=== PATIENT | male | born 1940 | race Caucasian/White ===

== ENCOUNTER 2016-07-28 16:20 | Observation (INO) | payer OTHER ==
[~2016-07-28] VITALS: Ht 172.7 cm; Wt 88.7 kg
[2016-07-28] VITALS (10 sets, daily range): BP systolic 143–200; BP diastolic 59–107; PULSE 74–91; RESP 16–20; TEMP 98.8–99.8; O2SAT 93–98
[~2016-07-28 16:20] MED LIST: AMLO5TAB22 PO; ATOR40TA PO; DONE5TAB14 PO; DUONI NEB; FURO20 PO; LANTUS2P SQ; LORA.5 PO; LOSA100T PO; NOVORP2 SQ; OMEP20TA PO; PENT400 PO; POTA-243 PO; QUET25 PO; ST J81CH PO; Z.0.OXYGENDME NC
[2016-07-28] MEDS ORDERED: SODIUM CHLOR 0.9% 1000 ML INJ 1,000 ML IV SCH (16:40)
--- NOTE | 2016-07-28 16:43 | PD ---
HPI Chief Complaint: Altered Mental Status Time Seen by Provider: 16:36 Travel History International Travel<30 days: No Contact w/Intl Traveler<30days: No Traveled to known affect area: No History of Present Illness HPI 76-year-old male with history of COPD, dementia, diabetes, brought in by his for evaluation of altered mental status. When asked why the patient is in the emergency department, he states he is not feeling well. He is denying chest pain or dyspnea. No abdominal pain. Apparently he vomited once earlier today. According to the , the patient has not been acting like himself. Symptoms seem to be worse after waking up from sleep. She tells me that yesterday he urinated off of her porch which is very unlike him. She has not noted any fevers, but tells me that he felt cold today. PFSH Past Medical History Asthma: Yes Blood Disorders: No Depression: Yes Cancer: No Cardiac Catheterization: Yes Cardiovascular Problems: Yes High Cholesterol: Yes Chest Pain: Yes COPD: Yes Cerebrovascular Accident: Yes Coronary Artery Disease: Yes Diabetes: Yes Diminished Hearing: No Gastrointestinal Disorders: Yes GERD: Yes Genitourinary: No Headaches: Yes (MIGRANES) Hypertension: Yes Immune Disorder: No Musculoskeletal: No Neurologic: No Psychiatric: No Reproductive: Yes Respiratory: Yes Migraines: Yes Myocardial Infarction: Yes Past Surgical History Abdominal Surgery: Yes (APPENDECTOMY) AICD: No Appendectomy: Yes Ear Surgery: Yes Joint Replacement: No Pacemaker: No Other Surgery: Yes Social History Alcohol Use: No Tobacco Use: Yes (1.5 PPD X 50 PLUS YRS/NOW 1PPD) Substance Use: No Allergies-Medications (Allergen,Severity, Reaction): Coded Allergies: No Known Allergies (Verified , 07/28/16) Reported Meds & Prescriptions Reported Meds & Active Scripts Active Reported Donepezil 10 Mg Tab 10 Mg PO DAILY Pentoxifylline CR (Pentoxifylline) 400 Mg Tab 400 Mg PO TID Memantine 10 Mg Tab 10 Mg PO BID Atorvastatin (Atorvastatin Calcium) 80 Mg Tab 80 Mg PO HS Metformin (Metformin HCl) 500 Mg Tab 500 Mg PO BIDPC With meals Lantus Inj (Insulin Glargine) 1,000 Unit/10 Ml Vial 30 Units SQ BID Losartan (Losartan Potassium) 100 Mg Tab 100 Mg PO DAILY Omeprazole 20 Mg Tab 20 Mg PO DAILY Potassium Chloride ER (Potassium Chloride) 10 Meq Tab 10 Meq PO DAILY Aspirin 81 Mg Tabdr 81 Mg PO DAILY Review of Systems Except as stated in HPI: all other systems reviewed are Neg Physical Exam Narrative GENERAL: Well-developed, well-nourished, no apparent distress. SKIN: Focused skin assessment warm/dry. No rash. HEAD: Atraumatic. Normocephalic. EYES: Pupils equal and round. No scleral icterus. No injection or drainage. ENT: Mucous membranes pink and moist. NECK: Trachea midline. No JVD. No nuchal rigidity CARDIOVASCULAR: Regular rate and rhythm. RESPIRATORY: No accessory muscle use. Clear to auscultation. Breath sounds equal bilaterally. GASTROINTESTINAL: Abdomen soft, non-tender, nondistended. MUSCULOSKELETAL: No obvious deformities. No clubbing. No cyanosis. No edema. NEUROLOGICAL: Awake and alert. No obvious cranial nerve deficits. Motor grossly within normal limits. Normal speech. Data Data Last Documented VS Vital Signs Date Time Temp Pulse Resp B/P Pulse Ox O2 Delivery O2 Flow Rate FiO2 07/28/16 18:06 76 20 178/81 96 Nasal Cannula 2 07/28/16 16:25 98.8 Orders Electrocardiogram (07/28/16 16:40) Complete Blood Count With Diff (07/28/16 16:40) Comprehensive Metabolic Panel (07/28/16 16:40) Prothrombin Time / Inr (Pt) (07/28/16 16:40) Act Partial Throm Time (Ptt) (07/28/16 16:40) Lactic Acid Sepsis Protocol (07/28/16 16:40) Urinalysis - C+S If Indicated (07/28/16 16:40) Influenzae A/B Antigen (07/28/16 16:40) Blood Culture (07/28/16 16:40) Chest, Single Ap (07/28/16 16:40) Arterial Blood Gas (Abg) (07/28/16 16:40) Blood Glucose (07/28/16 16:40) Ecg Monitoring (07/28/16 16:40) Iv Access Insert/Monitor (07/28/16 16:40) Oximetry (07/28/16 16:40) Oxygen Administration (07/28/16 16:40) Ammonia (07/28/16 16:40) Thyroid Stimulating Hormone (07/28/16 16:40) Sodium Chlor 0.9% 1000 Ml Inj (Ns 1000 M (07/28/16 16:40) Alcohol (Ethanol) (07/28/16 16:40) Ct Brain W/O Iv Contrast(Rout) (07/28/16 ) Cath For Specimen (07/28/16 17:19) Labs Laboratory Tests Test 07/28/16 07/28/16 07/28/16 16:40 16:45 18:00 White Blood Count 11.8 TH/MM3 Red Blood Count 5.50 MIL/MM3 Hemoglobin 15.9 GM/DL Hematocrit 48.7 % Mean Corpuscular Volume 88.5 FL Mean Corpuscular Hemoglobin 29.0 PG Mean Corpuscular Hemoglobin 32.8 % Concent Red Cell Distribution Width 13.4 % Platelet Count 177 TH/MM3 Mean Platelet Volume 9.9 FL Neutrophils (%) (Auto) 82.9 % Lymphocytes (%) (Auto) 10.5 % Monocytes (%) (Auto) 3.9 % Eosinophils (%) (Auto) 0.9 % Basophils (%) (Auto) 1.8 % Neutrophils # (Auto) 9.8 TH/MM3 Lymphocytes # (Auto) 1.2 TH/MM3 Monocytes # (Auto) 0.5 TH/MM3 Eosinophils # (Auto) 0.1 TH/MM3 Basophils # (Auto) 0.2 TH/MM3 CBC Comment DIFF FINAL Differential Comment Prothrombin Time 10.4 SEC Prothromb Time International 0.9 RATIO Ratio Activated Partial 26.1 SEC Thromboplast Time Sodium Level 141 MEQ/L Potassium Level 4.1 MEQ/L Chloride Level 102 MEQ/L Carbon Dioxide Level 30.6 MEQ/L Anion Gap 8 MEQ/L Blood Urea Nitrogen 18 MG/DL Creatinine 1.10 MG/DL Estimat Glomerular Filtration 65 ML/MIN Rate Random Glucose 87 MG/DL Lactic Acid Level 1.4 mmol/L Calcium Level 8.9 MG/DL Total Bilirubin 0.5 MG/DL Aspartate Amino Transf 20 U/L (AST/SGOT) Alanine Aminotransferase 22 U/L (ALT/SGPT) Alkaline Phosphatase 85 U/L Ammonia LESS THAN 10 MCMOL/L Total Protein 7.6 GM/DL Albumin 3.5 GM/DL Thyroid Stimulating Hormone 0.616 uIU/ML 3rd Gen Ethyl Alcohol Level LESS THAN 3 MG/DL Blood Gas Puncture Site RT BRACHIAL Blood Gas Patient Temperature 98.6 Blood Gas HCO3 25 mmol/L Blood Gas Base Excess 1.3 mmol/L Blood Gas Oxygen Saturation 94 % Arterial Blood pH 7.44 Arterial Blood Partial 38 mmHG Pressure CO2 Arterial Blood Partial 109 mmHG Pressure O2 Arterial Blood Oxygen Content 20.7 Vol % Arterial Blood 3.2 % Carboxyhemoglobin Arterial Blood Methemoglobin 1.5 % Blood Gas Hemoglobin 15.7 G/DL Oxygen Delivery Device NASAL CANNULA Blood Gas Liter Flow 2 L/M Blood Gas Inspired Oxygen 28 % Urine Color YELLOW Urine Turbidity CLEAR Urine pH 6.0 Urine Specific [place] 1.018 Urine Protein 100 mg/dL Urine Glucose (UA) NEG mg/dL Urine Ketones NEG mg/dL Urine Occult Blood TRACE Urine Nitrite NEG Urine Bilirubin NEG Urine Leukocyte Esterase NEG Urine RBC 0-3 /hpf Urine WBC 0-2 /hpf Microscopic Urinalysis Comment CATH-CULT NOT IND MDM Medical Decision Making Medical Screen Exam Complete: Yes Emergency Medical Condition: Yes Interpretation(s) EKG: Sinus, rate 78, leftward axis, RBBB with LAFB, unchanged from prior Differential Diagnosis Sepsis, pneumonia, UTI, intracranial abnormality, metabolic abnormality, progression of dementia, hypercarbia, hyperammonemia, meningitis/encephalitis unlikely Narrative Course Initial vital signs show heart rate 70, blood pressure 178/84, pulse ox 98% on room air, oral temp of 98.8F. CBC shows WBC 11.8, hemoglobin 15.9, hematocrit 40.7, platelets 177, neutrophils 82.9%. CMP is unremarkable. Lactic acid is 1.4. TSH is 0.616. Ammonia is less than 10. Alcohol level is negative. UA shows 100 protein, trace occult blood, otherwise unremarkable. ABG shows pH 7.44, PCO2 38 and a PO2 109 Chest x-ray: No acute disease. CT head: CONCLUSION: Stable brain. No acute findings. Patient and the patient's significant other were made aware of all findings. The patient became slightly agitated at one point while in the emergency department, but was able to be talked down. His symptoms could be secondary to worsening dementia. I certainly do not believe that he has meningitis or encephalitis. Patient lives at home with his , and the is concerned about being able to care for him in his current condition. I agree that the patient is not safe to be discharged home at this time and would like to admit him for overnight observation for altered mental status. Case discussed with hospitalist Dr. Pontey who will admit the patient to his service. The is amenable to this plan. Diagnosis Primary Impression: Altered mental status Qualified Code: R41.82 - Altered mental status, unspecified altered mental status type Admitting Information Admitting Physician Requests: Observation Naren Morelos MD July 28, 2016 16:43
[2016-07-28 16:54] LABS: BLOOD GAS BASE EXCESS 1.3 mmol/L (-2-2); BLOOD GAS CARBOXYHEMOGLOBIN 3.2 % (0-4); BLOOD GAS HCO3 25 mmol/L (22-26); BLOOD GAS METHEMOGLOBIN 1.5 % (0-2); BLOOD GAS O2 HGB SATURATION 94 % (90-100); BLOOD GAS OXYGEN CONTENT 20.7 Vol % (12.0-20.0); BLOOD GAS PCO2 38 mmHG (38-42); BLOOD GAS PO2 109 mmHG (61-120); BLOOD GAS TOTAL HGB 15.7 G/DL (12.0-16.0); CRITICAL VALUE NO; DRAW SITE RT BRACHIAL; FIO2 28 %; LITER FLOW 2 L/M; NUMBER OF ARTERIAL PUNCTURES 1; OXYGEN DEVICE NASAL CANNULA; STAT YES; TEMP CORR TO 98.6; ULNAR PULSE PRESENT
[2016-07-28] MEDS ORDERED: ATOR1TAB18 PO (16:59)
[2016-07-28] MEDS ORDERED: ASPI1TAB69 PO (16:59)
[2016-07-28] MEDS ORDERED: OMEP20TA PO (16:59)
[2016-07-28] MEDS ORDERED: PENT400T19 PO (16:59)
[2016-07-28] MEDS ORDERED: MEMA1TAB2 PO (16:59)
[2016-07-28] MEDS ORDERED: LANTUS2P SQ (16:59)
[2016-07-28] MEDS ORDERED: POTA10TA2 PO (16:59)
[2016-07-28] MEDS ORDERED: DONE10TA7 PO (16:59)
[2016-07-28] MEDS ORDERED: LOSA100T PO (16:59)
[2016-07-28] MEDS ORDERED: METF500T PO (16:59)
[2016-07-28 17:13] LABS: AUTOMATED NEUTROPHIL # 9.8 TH/MM3 (1.8-7.7); BASOPHIL # 0.2 TH/MM3 (0-0.2); BASOPHIL % 1.8 % (0.0-2.0); EOSINOPHIL # 0.1 TH/MM3 (0-0.4); EOSINOPHIL % 0.9 % (0.0-4.0); HEMATOCRIT 48.7 % (39.0-51.0); LYMPH % 10.5 % (9.0-44.0); LYMPHOCYTE # 1.2 TH/MM3 (1.0-4.8); MEAN CELL VOLUME 88.5 FL (80.0-100.0); MEAN CORPUSCULAR HGB CONC 32.8 % (32.0-36.0); MONO % 3.9 % (0.0-8.0); NEUT % 82.9 % (16.0-70.0); PLATELET COUNT 177 TH/MM3 (150-450); RED CELL DISTRIBUTION WIDTH 13.4 % (11.6-17.2); WHITE BLOOD COUNT 11.8 TH/MM3 (4.0-11.0)
[2016-07-28 17:14] LABS: HEMO FLAGS DIFF FINAL
--- NOTE | 2016-07-28 17:19 | RADHPO ---
EXAM DATE/TIME: 07/28/2016 17:07 [facility] COMPARISON: CT PULMONARY ANGIOGRAM, July 14, 2015, 7:23. CHEST SINGLE AP, July 12, 2015, 9:48. INDICATIONS : Chest pain. MEDICAL HISTORY : Hypertension. Chronic obstructive pulmonary disease. Cardiovascular disease. diabetes SURGICAL HISTORY : None. ENCOUNTER: Initial ACUITY: 4 - 6 days PAIN SCORE: 5/10 LOCATION: Bilateral chest FINDINGS: A single view of the chest demonstrates the lungs to be symmetrically aerated without evidence of mas s, infiltrate or effusion. The cardiomediastinal contours are unremarkable. Osseous structures are intact. CONCLUSION: No acute disease. Constantino Lomeli MD on July 28, 2016 at 17:16 Board Certified Radiologist. This report was verified electronically.
[2016-07-28 17:22] LABS: CHLORIDE 102 MEQ/L (98-107); POTASSIUM 4.1 MEQ/L (3.5-5.1); SODIUM (NA) 141 MEQ/L (136-145)
[2016-07-28 17:25] LABS: APTT (PATIENT) 26.1 SEC (24.3-30.1); INTERNATIONAL NORMALIZED RATIO 0.9 RATIO; PROTHROMBIN TIME - PATIENT 10.4 SEC (9.8-11.6)
[2016-07-28 17:26] LABS: ANION GAP 8 MEQ/L (5-15); BICARBONATE 30.6 MEQ/L (21.0-32.0); BLOOD UREA NITROGEN 18 MG/DL (7-18)
[2016-07-28 17:29] LABS: ALT (GPT) 22 U/L (12-78); AST (GOT) 20 U/L (15-37); GLOMERULAR FILTRATION RATE 65 ML/MIN (>89)
[2016-07-28 17:30] LABS: TOTAL BILIRUBIN ADULT 0.5 MG/DL (0.2-1.0)
[2016-07-28 17:31] LABS: ALKALINE PHOSPHATASE 85 U/L (45-117)
[2016-07-28 18:04] LABS: BLOOD, URINE TRACE (NEG); GLUCOSE,URINE NEG (NEG); KETONE, URINE NEG (NEG); NITRITE,URINE NEG (NEG)
[2016-07-28 18:09] LABS: COMMENT (UR) CATH-CULT NOT IND; CULTURE IF INDICATED CATH CULTURE NOT IND; RBC, URINE 0-3 /hpf (0-3); URINE COLOR YELLOW (YELLW/STRAW); WBC, URINE 0-2 /hpf (0-5)
--- NOTE | 2016-07-28 18:23 | RADHPO ---
EXAM DATE/TIME: 07/28/2016 17:40 [facility] COMPARISON: CT BRAIN W/O CONTRAST, July 12, 2015, 9:25. INDICATIONS : Increased confusion. RADIATION DOSE: 66.33 CTDIvol (mGy) MEDICAL HISTORY : Cerebrovascular disease. Cardiovascular disease Chronic obstructive pulmonary disease.Hypertension. Diabetes. SURGICAL HISTORY : Appendectomy. Retina surgery. Orthopedic surgery. ENCOUNTER: Initial ACUITY: 1 day PAIN SCALE: 0/10 LOCATION: cranial TECHNIQUE: Multiple contiguous axial images were obtained of the head. Using automated exposure control and adj ustment of the mA and/or kV according to patient size, radiation dose was kept as low as reasonably a chievable to obtain optimal diagnostic quality images. FINDINGS: There are stable small bilateral basal ganglia lacunar infarcts area patchy mild diminished attenuati on in periventricular white matter which also appears unchanged. There is no evidence of intracranial mass or hemorrhage. There is a suggest acute infarction. The extracranial structures are benign and intact. CONCLUSION: Stable brain. No acute findings. Constantino Lomeli MD on July 28, 2016 at 18:19 Board Certified Radiologist. This report was verified electronically.
--- NOTE | 2016-07-28 18:56 | HHI.HP ---
[facility] Service [facility] Primary Care Physician Chalo Baird MD Admission Diagnosis altered mental status Diagnoses: (1) Toxic metabolic encephalopathy (2) Dementia (3) DM (diabetes mellitus) (4) HTN (hypertension) (5) CAD (coronary artery disease) (6) HLD (hyperlipidemia) Chief Complaint: Alter mental status change Travel History International Travel<30 Days: No Contact w/Intl Traveler <30 Da: No Traveled to Known Affected Are: No History of Present Illness 76-year-old male with a past medical history of dementia, HTN, GERD, CAD, HLD, COPD, DM, CVA, PVD, depression was brought to the ED for evaluation of worsening altered mental status. Patient is essentially noncontributory historian. The history is obtained from patient's states, he has been acting strangely. Patient has been urinating on himself and has been wandering around.There has been no febrile episode or upper respiratory symptoms. Head CT in the ED was negative and all labs including CBC, BMP, ammonia level within normal limit. Review of Systems ROS Limitations: Altered Mental Status Other 12 systems reviewed and are negative except for the one mentioned in the history of present illness Past Family Social History Past Medical History Hypertension GERD Coronary artery disease Hyperlipidemia COPD Depression Diabetes mellitus History of CVA Peripheral vascular disease Past Surgical History Appendectomy Reported Medications Donepezil 10 Mg Tab 10 Mg PO DAILY Pentoxifylline CR (Pentoxifylline) 400 Mg Tab 400 Mg PO TID Memantine 10 Mg Tab 10 Mg PO BID Atorvastatin (Atorvastatin Calcium) 80 Mg Tab 80 Mg PO HS Metformin (Metformin HCl) 500 Mg Tab 500 Mg PO BIDPC With meals Lantus Inj (Insulin Glargine) 1,000 Unit/10 Ml Vial 30 Units SQ BID Losartan (Losartan Potassium) 100 Mg Tab 100 Mg PO DAILY Omeprazole 20 Mg Tab 20 Mg PO DAILY Potassium Chloride ER (Potassium Chloride) 10 Meq Tab 10 Meq PO DAILY Aspirin 81 Mg Tabdr 81 Mg PO DAILY Allergies: Coded Allergies: No Known Allergies (Verified , 07/28/16) Family History Family history of hypertension Social History Alcohol Use: No Tobacco Use: Yes (1.5 PPD X 50 PLUS YRS/NOW 1PPD) Substance Use: No Physical Exam Vital Signs Vital Signs Date Time Temp Pulse Resp B/P Pulse Ox O2 Delivery O2 Flow Rate FiO2 07/28/16 18:06 76 20 178/81 96 Nasal Cannula 2 07/28/16 17:05 94 Nasal Cannula 2 07/28/16 17:05 94 Nasal Cannula 2 07/28/16 16:46 77 18 188/86 96 Room Air 07/28/16 16:38 Room Air 07/28/16 16:25 98.8 78 16 178/84 98 Physical Exam GENERAL: NAD SKIN: No rashes, ecchymoses or lesions. Cool and dry. HEAD: Atraumatic. Normocephalic. No temporal or scalp tenderness. EYES: Pupils equal round and reactive. Extraocular motions intact. No scleral icterus. No injection or drainage. ENT: Nose without bleeding, purulent drainage or septal hematoma. Throat without erythema, tonsillar hypertrophy or exudate. Uvula midline. Airway patent. NECK: Trachea midline. No JVD or lymphadenopathy. Supple, nontender, no meningeal signs. CARDIOVASCULAR: Regular rate and rhythm without murmurs, gallops, or rubs. RESPIRATORY: Clear to auscultation. Breath sounds equal bilaterally. No wheezes , rales, or rhonchi. GASTROINTESTINAL: Abdomen soft, non-tender, nondistended. No hepato-splenomegaly , or palpable masses. No guarding. MUSCULOSKELETAL: Extremities without clubbing, cyanosis, or edema. No joint tenderness, effusion, or edema noted. No calf tenderness. Negative Homans sign bilaterally. NEUROLOGICAL: Awake and alert. Cranial nerves II through XII intact. Motor and sensory grossly within normal limits. Five out of 5 muscle strength in all muscle groups. Normal speech. Laboratory Laboratory Tests Test 07/28/16 07/28/16 07/28/16 16:40 16:45 18:00 White Blood Count 11.8 Red Blood Count 5.50 Hemoglobin 15.9 Hematocrit 48.7 Mean Corpuscular Volume 88.5 Mean Corpuscular Hemoglobin 29.0 Mean Corpuscular Hemoglobin 32.8 Concent Red Cell Distribution Width 13.4 Platelet Count 177 Mean Platelet Volume 9.9 Neutrophils (%) (Auto) 82.9 Lymphocytes (%) (Auto) 10.5 Monocytes (%) (Auto) 3.9 Eosinophils (%) (Auto) 0.9 Basophils (%) (Auto) 1.8 Neutrophils # (Auto) 9.8 Lymphocytes # (Auto) 1.2 Monocytes # (Auto) 0.5 Eosinophils # (Auto) 0.1 Basophils # (Auto) 0.2 CBC Comment DIFF FINAL Differential Comment Prothrombin Time 10.4 Prothromb Time International 0.9 Ratio Activated Partial 26.1 Thromboplast Time Sodium Level 141 Potassium Level 4.1 Chloride Level 102 Carbon Dioxide Level 30.6 Anion Gap 8 Blood Urea Nitrogen 18 Creatinine 1.10 Estimat Glomerular Filtration 65 Rate Random Glucose 87 Lactic Acid Level 1.4 Calcium Level 8.9 Total Bilirubin 0.5 Aspartate Amino Transf 20 (AST/SGOT) Alanine Aminotransferase 22 (ALT/SGPT) Alkaline Phosphatase 85 Ammonia LESS THAN 10 Total Protein 7.6 Albumin 3.5 Thyroid Stimulating Hormone 0.616 3rd Gen Ethyl Alcohol Level LESS THAN 3 Blood Gas Puncture Site RT BRACHIAL Blood Gas Patient Temperature 98.6 Blood Gas HCO3 25 Blood Gas Base Excess 1.3 Blood Gas Oxygen Saturation 94 Arterial Blood pH 7.44 Arterial Blood Partial 38 Pressure CO2 Arterial Blood Partial 109 Pressure O2 Arterial Blood Oxygen Content 20.7 Arterial Blood 3.2 Carboxyhemoglobin Arterial Blood Methemoglobin 1.5 Blood Gas Hemoglobin 15.7 Oxygen Delivery Device NASAL CANNULA Blood Gas Liter Flow 2 Blood Gas Inspired Oxygen 28 Urine Color YELLOW Urine Turbidity CLEAR Urine pH 6.0 Urine Specific [place] 1.018 Urine Protein 100 Urine Glucose (UA) NEG Urine Ketones NEG Urine Occult Blood TRACE Urine Nitrite NEG Urine Bilirubin NEG Urine Leukocyte Esterase NEG Urine RBC 0-3 Urine WBC 0-2 Microscopic Urinalysis Comment CATH-CULT NOT IND Date/Time Procedure Status Source Growth 07/28/16 16:50 Aerobic Blood Culture Received Blood Peripheral Pending 07/28/16 16:50 Anaerobic Blood Culture Received Blood Peripheral Pending 07/28/16 16:40 Influenza Types A,B Antigen ([facility]) - Final Complete Nasal Washing NEGATIVE FOR FLU A AND B ANTIGEN.... Result Diagram: 07/28/16 1640 07/28/16 1640 Imaging Last Impressions Chest X-Ray 07/28/16 1640 Signed Impressions: Service Date/Time: Thursday, July 28, 2016 17:07 - CONCLUSION: No acute disease. Constantino Lomeli MD Head CT 07/28/16 0000 Signed Impressions: Service Date/Time: Thursday, July 28, 2016 17:40 - CONCLUSION: Stable brain. No acute findings. Constantino Lomeli MD Assessment and Plan Problem List: (1) Toxic metabolic encephalopathy ICD Code: G92 Status: Resolved (2) Dementia ICD Code: F03.90 Status: Chronic (3) DM (diabetes mellitus) ICD Code: E11.9 Status: Chronic (4) HTN (hypertension) ICD Code: I10 Status: Chronic (5) CAD (coronary artery disease) ICD Code: I25.10 Status: Chronic (6) HLD (hyperlipidemia) ICD Code: E78.5 Status: Chronic (7) PVD (peripheral vascular disease) ICD Code: I73.9 Status: Chronic (8) GERD (gastroesophageal reflux disease) ICD Code: K21.9 Status: Chronic (9) COPD (chronic obstructive pulmonary disease) ICD Code: J44.9 Status: Chronic Assessment and Plan 76 year-old man with Toxic metabolic encephalopathy Head CT noted and review by me without any acute finding Chest x-ray noted and review by me without any cardio pulmonary disease Morning, CBC except elevated WBC, BMP unremarkable This maybe secondary to worsening dementia however will check brain MRI to rule out any ischemic event Leukocytosis 2/2 Stress reactive UA negative chest x-ray unremarkable Dementia Resume outpatient medications Consider psychiatry consultation Place sitter in the room Hypertension Labile BP, resume outpatient medication and Vasotec when necessary Diabetes type 2 Hold Lantus for tonight, start insulin sliding scale Other chronic medical conditions Resume outpatient medications DVT prophylaxis: Bilateral SCDs Code Status Full code Discussed Condition With , , ED physician Grover Livingston MD July 28, 2016 18:56
[2016-07-28] MEDS ORDERED: ALPRAZolam 0.5 MG TAB PO PRN ×2 (19:00→19:30)
[2016-07-28] MEDS ORDERED: ENALAPRILAT 1.25 MG/ML VIAL IV PUSH PRN (19:00)
[2016-07-28] MEDS ORDERED: GLUCAGON 1 MG/ML VIAL OTHER PRN (19:00)
[2016-07-28] MEDS ORDERED: RESP: ALBUTEROL 2.5 MG/IPRATROPIUM 0.5 MG NEB (PRN) NEB (19:00)
[2016-07-28] MEDS ORDERED: ONDANSETRON HCL 4 MG/2 ML VIAL IVP PRN (19:00)
[2016-07-28] MEDS ORDERED: LORazepam 2 MG/ML VIAL IV PUSH ONE (19:00)
[2016-07-28] MEDS ORDERED: ACETAMINOPHEN 325 MG TAB PO PRN ×2 (19:00)
[2016-07-28] MEDS ORDERED: NALOXONE HCL 0.4 MG/ML AMP IV PRN (19:00)
[2016-07-28] MEDS ORDERED: SODIUM CHLORIDE 0.9% FLUSH 10 ML FLUSH IV FLUSH PRN (19:00)
[2016-07-28] MEDS ORDERED: DEXTROSE 50% IN WATER 50 ML VIAL(D50) IV PUSH PRN (19:00)
[2016-07-28] MEDS: INSULIN ASPART SUPPLEMENTAL SCALE SQ SCH (20:49)
[2016-07-28] MEDS: MEMANTINE HCL 10 MG TAB PO SCH (20:52)
[2016-07-28] MEDS: SODIUM CHLORIDE 0.9% FLUSH 10 ML FLUSH IV FLUSH SCH (21:00)
[2016-07-28] MEDS ORDERED: ATORVASTATIN 40 MG TAB PO SCH (21:00)
[2016-07-28] MEDS ORDERED: INSULIN GLARGINE 1,000 UNITS/10 ML VIAL SQ SCH (21:00)
[2016-07-28] MEDS ORDERED: hydrALAZINE HCL 20 MG/ML VIAL IV PUSH PRN (21:30)
--- NOTE | 2016-07-28 22:38 | EKG ---
Date Performed: 07/28/2016 Time Performed: 17:07:44 PTAGE: 76 years EKG: Sinus rhythm with PAC(s) Left axis deviation RBBB with left anterior fascicular block Possible extensive infarct - age undetermined Abnormal ECG PREVIOUS TRACING : 07/12/2015 08.58 Compared to previous tracing, PACs are now present. DOCTOR: Serg Payne Interpretating Date/Time 07/28/2016 22:37:07
[2016-07-29] VITALS (8 sets, daily range): BP systolic 120–161; BP diastolic 53–81; PULSE 60–66; RESP 18–20; TEMP 98.3–99.6; O2SAT 95–97
[2016-07-29 05:30] LABS: AUTOMATED NEUTROPHIL # 6.9 TH/MM3 (1.8-7.7); BASOPHIL # 0.1 TH/MM3 (0-0.2); EOSINOPHIL # 0.3 TH/MM3 (0-0.4); EOSINOPHIL % 2.8 % (0.0-4.0); HEMATOCRIT 44.8 % (39.0-51.0); LYMPH % 27.5 % (9.0-44.0); LYMPHOCYTE # 3.1 TH/MM3 (1.0-4.8); MEAN CORPUSCULAR HEMOGLOBIN 29.4 PG (27.0-34.0); MEAN CORPUSCULAR HGB CONC 32.7 % (32.0-36.0); MONO % 8.3 % (0.0-8.0); NEUT % 60.4 % (16.0-70.0); PLATELET COUNT 160 TH/MM3 (150-450); RED BLOOD COUNT 4.98 MIL/MM3 (4.50-5.90); RED CELL DISTRIBUTION WIDTH 13.5 % (11.6-17.2); WHITE BLOOD COUNT 11.3 TH/MM3 (4.0-11.0)
[2016-07-29 05:32] LABS: CHLORIDE 102 MEQ/L (98-107); POTASSIUM 3.5 MEQ/L (3.5-5.1); SODIUM (NA) 141 MEQ/L (136-145)
[2016-07-29 05:37] LABS: ANION GAP 8 MEQ/L (5-15); BICARBONATE 31.3 MEQ/L (21.0-32.0); BLOOD UREA NITROGEN 14 MG/DL (7-18)
[2016-07-29 05:40] LABS: ALT (GPT) 19 U/L (12-78); AST (GOT) 16 U/L (15-37); GLOMERULAR FILTRATION RATE 74 ML/MIN (>89)
[2016-07-29 05:42] LABS: TOTAL BILIRUBIN ADULT 0.8 MG/DL (0.2-1.0)
[2016-07-29 05:43] LABS: ALKALINE PHOSPHATASE 69 U/L (45-117)
[2016-07-29 05:56] LABS: HEMO FLAGS DIFF FINAL
[2016-07-29] MEDS: INSULIN ASPART SUPPLEMENTAL SCALE SQ SCH ×2 (05:57→11:00)
[2016-07-29] MEDS ORDERED: DONEPEZIL HCL 5 MG TAB PO SCH (09:00)
[2016-07-29] MEDS ORDERED: INSULIN DETEMIR 100 UNITS/ML VIAL SQ SCH (09:00)
[2016-07-29] MEDS ORDERED: LOSARTAN 50 MG TAB PO SCH (09:00)
[2016-07-29] MEDS ORDERED: ASPIRIN EC 81 MG TABEC PO SCH (09:00)
[2016-07-29] MEDS ORDERED: PANTOPRAZOLE SOD 20 MG DELAYED RELEASE TAB PO SCH (09:00)
[2016-07-29] MEDS: MEMANTINE HCL 10 MG TAB PO SCH (09:36)
[2016-07-29] MEDS: PENTOXIFYLLINE 400 MG CONTROLLED RELEASE TAB PO SCH ×2 (09:37→12:47)
[2016-07-29] MEDS: SODIUM CHLORIDE 0.9% FLUSH 10 ML FLUSH IV FLUSH SCH (09:37)
--- NOTE | 2016-07-29 11:47 | HHI.PR ---
Subjective Remarks Follow-up toxic metabolic encephalopathy/dementia 07/29/16-patient seen and examined, appears calm and stable. Alert and oriented 2. by the bedside and would like the patient to be discharged home with home health care Objective Vitals Vital Signs Date Time Temp Pulse Resp B/P Pulse Ox O2 Delivery O2 Flow Rate FiO2 07/29/16 10:05 96 Nasal Cannula 2.00 07/29/16 08:00 98.5 60 18 161/75 97 07/29/16 03:54 96 Nasal Cannula 2.00 07/29/16 03:30 95 Nasal Cannula 2.00 07/29/16 03:30 98.3 64 20 120/53 95 07/29/16 03:21 67 20 137/81 98 07/29/16 02:30 99.0 66 20 135/65 97 Nasal Cannula 2 07/29/16 01:30 62 20 138/54 96 Nasal Cannula 2 07/29/16 00:30 99.6 63 20 137/65 96 07/28/16 23:12 76 20 143/59 95 07/28/16 22:46 87 20 144/78 94 Nasal Cannula 2 07/28/16 21:23 91 20 191/87 93 Nasal Cannula 2 07/28/16 21:23 87 20 98 07/28/16 21:17 99.8 87 20 194/98 98 Nasal Cannula 2 07/28/16 20:29 82 20 200/107 07/28/16 19:15 74 18 186/73 96 Nasal Cannula 2 07/28/16 18:06 76 20 178/81 96 Nasal Cannula 2 07/28/16 17:05 94 Nasal Cannula 2 07/28/16 17:05 94 Nasal Cannula 2 07/28/16 16:46 77 18 188/86 96 Room Air 07/28/16 16:38 Room Air 07/28/16 16:25 98.8 78 16 178/84 98 I/O 07/28/16 07/28/16 07/28/16 07/29/16 07/29/16 07/29/16 07:00 15:00 23:00 07:00 15:00 23:00 Intake Total 1000 ml Output Total 600 ml Balance -600 ml 1000 ml Intake IV Total 1000 ml Output Urine Total 600 ml # Voids 4 5 # Bowel Movements 1 Result Diagram: 07/29/16 0500 07/29/16 0500 Imaging Last Impressions Chest X-Ray 07/28/16 1640 Signed Impressions: Service Date/Time: Thursday, July 28, 2016 17:07 - CONCLUSION: No acute disease. Constantino Lomeli MD Head CT 07/28/16 0000 Signed Impressions: Service Date/Time: Thursday, July 28, 2016 17:40 - CONCLUSION: Stable brain. No acute findings. Constantino Lomeli MD Objective Remarks GENERAL: NAD SKIN: Warm and dry. HEAD: Normocephalic. EYES: No scleral icterus. No injection or drainage. NECK: Supple, trachea midline. No JVD or lymphadenopathy. CARDIOVASCULAR: Regular rate and rhythm without murmurs, gallops, or rubs. RESPIRATORY: Breath sounds equal bilaterally. No accessory muscle use. GASTROINTESTINAL: Abdomen soft, non-tender, nondistended. MUSCULOSKELETAL: No cyanosis, or edema. BACK: Nontender without obvious deformity. No CVA tenderness. A/P Problem List: (1) Toxic metabolic encephalopathy ICD Code: G92 Status: Resolved (2) Dementia ICD Code: F03.90 Status: Chronic (3) DM (diabetes mellitus) ICD Code: E11.9 Status: Chronic (4) HTN (hypertension) ICD Code: I10 Status: Chronic (5) CAD (coronary artery disease) ICD Code: I25.10 Status: Chronic Assessment and Plan 76 year-old man with Toxic metabolic encephalopathy-resolved Head CT without any acute finding Chest x-ray without any cardio pulmonary disease Will hold on brain MRI Explained to patient's that he would benefit from a short term rehabilitation facility however she wants her home with home health care. Leukocytosis 2/2 Stress reactive UA negative and chest x-ray unremarkable Dementia Continue outpatient medications, sitter Hypertension Continue outpatient medication and Vasotec when necessary Diabetes type 2 Hold Lantus for tonight, insulin sliding scale Other chronic medical conditions Continue outpatient medications DVT prophylaxis: Bilateral SCDs Discharge Planning Discharge patient to home Condition on discharge: Improved ADA Diet as tolerated Ad Nickie activity Rx written:none Follow-up with primary care physician in 1 week Grover Livingston MD July 29, 2016 11:47
--- NOTE | 2016-07-29 11:48 | HHI.FF ---
Face to Face Verification Diagnosis: (1) Toxic metabolic encephalopathy (2) DM (diabetes mellitus) (3) HTN (hypertension) (4) CAD (coronary artery disease) (5) Dementia Home Health Nursing Order: Medical education Signs/symptoms of disease process Medication education-adverse effect I have seen patient Tyler Gao on 07/29/16. My clinical findings support the need for the requested home health care services because: Med compliance is questionable Impaired cognition/judgement I certify that my clinical findings support that this patient is homebound because: Impaired cognitive ability/safety Poor cardiac reserve Grover Livingston MD July 29, 2016 11:48
== END 2016-07-29 13:00 | disposition home health service (06) ==
LOC: PHED 16:20 → PHEDA 18:36 → PH3B 07-29 03:20
PROVIDERS: ADMIT Hospitalist; ATTEND Hospitalist
DX: G92 Toxic encephalopathy (principal); F03.90 Unspecified dementia, unspecified severity, without behavioral disturbance, psychotic disturbance, mood disturbance, and anxiety; I10 Essential (primary) hypertension; E11.51 Type 2 diabetes mellitus with diabetic peripheral angiopathy without gangrene; E78.5 Hyperlipidemia, unspecified; D72.829 Elevated white blood cell count, unspecified; J44.9 Chronic obstructive pulmonary disease, unspecified; J45.909 Unspecified asthma, uncomplicated; I25.10 Atherosclerotic heart disease of native coronary artery without angina pectoris; I25.2 Old myocardial infarction; K21.9 Gastro-esophageal reflux disease without esophagitis; E78.00 Pure hypercholesterolemia, unspecified; Z72.0 Tobacco use; Z86.73 Personal history of transient ischemic attack (TIA), and cerebral infarction without residual deficits; R94.31 Abnormal electrocardiogram [ECG] [EKG]; Z79.4 Long term (current) use of insulin
CPT/HCPCS: 36600; 70450; 71010; 80053; 80307; 81001; 82140; 82805; 82948; 83605; 84443; 85025; 85610; 85730; 87040; 87804; 93005; 96360; 97162; 99285; G0378; G8987; G8988; J2060; J7030; P9612

== ENCOUNTER 2017-01-14 14:36 | Emergency (ER) | payer OTHER ==
[~2017-01-14] VITALS: Ht 172.7 cm; Wt 90.0 kg
[~2017-01-14 14:36] MED LIST changes: -AMLO5TAB22 PO; +ASPI1TAB69 PO; +ATOR1TAB18 PO; -ATOR40TA PO; +DONE10TA7 PO; -DONE5TAB14 PO; -DUONI NEB; -FURO20 PO; -LORA.5 PO; +MEMA1TAB2 PO; +METF500T PO; -NOVORP2 SQ; -PENT400 PO; +PENT400T19 PO; -POTA-243 PO; +POTA10TA2 PO; -QUET25 PO; -ST J81CH PO; -Z.0.OXYGENDME NC
[2017-01-14 14:37] VITALS: BP 144/67; PULSE 65; RESP 18; TEMP 98.4; O2SAT 94
--- NOTE | 2017-01-14 15:56 | RADRPT ---
EXAM DATE/TIME: 01/14/2017 15:33 [facility] COMPARISON: CT PULMONARY ANGIOGRAM, July 14, 2015, 7:23. CHEST PA & LAT, September 30, 2014, 21:15. INDICATIONS : Chest pain. MEDICAL HISTORY : None. SURGICAL HISTORY : None. ENCOUNTER: Initial ACUITY: 2 days PAIN SCORE: 7/10 LOCATION: Left chest FINDINGS: PA and lateral views of the chest show a nodular density within the lingula. Its measures less than 1 cm in size. Remaining lungs are clear. No effusions. Heart is normal in size. Bony structures are un remarkable. CONCLUSION: Nodular density within the lingula. Consider further characterization utilizing a CT of the thorax. O therwise, no acute abnormality. Klever Foreman Jr., MD on January 14, 2017 at 15:53 Board Certified Radiologist. This report was verified electronically.
[2017-01-14 16:45] LABS: BASOPHIL # 0.1 TH/MM3 (0-0.2); BASOPHIL % 0.8 % (0.0-2.0); EOSINOPHIL # 0.4 TH/MM3 (0-0.4); EOSINOPHIL % 3.7 % (0.0-4.0); HEMO FLAGS DIFF FINAL; LYMPH % 20.9 % (9.0-44.0); LYMPHOCYTE # 2.2 TH/MM3 (1.0-4.8); MEAN CELL VOLUME 90.9 FL (80.0-100.0); MEAN CORPUSCULAR HEMOGLOBIN 30.6 PG (27.0-34.0); MEAN CORPUSCULAR HGB CONC 33.7 % (32.0-36.0); MONO % 8.8 % (0.0-8.0); NEUT % 65.8 % (16.0-70.0); PLATELET COUNT 164 TH/MM3 (150-450); RED BLOOD COUNT 4.85 MIL/MM3 (4.50-5.90); RED CELL DISTRIBUTION WIDTH 14.5 % (11.6-17.2); WHITE BLOOD COUNT 10.6 TH/MM3 (4.0-11.0)
[2017-01-14] MEDS ORDERED: ASPIRIN 81 MG CHEW TAB PO ONE (16:45)
[2017-01-14] MEDS ORDERED: NITROGLYCERIN 0.4 MG SL 25 TABS/BTL SL SCH (16:45)
--- NOTE | 2017-01-14 16:54 | PD ---
HPI Chief Complaint: Chest Pain Time Seen by Provider: 16:20 Travel History International Travel<30 days: No Contact w/Intl Traveler<30days: No Traveled to known affect area: No History of Present Illness HPI Patient is a 76-year-old male with history of diabetes, hypertension, hyperlipidemia, COPD who presents to emergency room with complaints of left- sided chest pain. Patient reports that his chest began 2 days ago while lying in bed. Repots that chest pain is located to his left chest, he reports that pain feels like a "pressure" to his chest. Patient reports that he feels short of breath with this chest pain, denies any nausea or vomiting with it. Reports that he does have history of IA in the past - denies history of cardiac stents or bypass surgery. Reports that nothing makes pain better or worse. He does not follow up with a field engineer - he only follows with his pcp Dr Brie DELATORRE Past Medical History Asthma: Yes Blood Disorders: No Depression: Yes Cancer: No Cardiac Catheterization: Yes Cardiovascular Problems: Yes High Cholesterol: Yes Chest Pain: Yes COPD: Yes Cerebrovascular Accident: Yes Coronary Artery Disease: Yes Diabetes: Yes Patient Takes Glucophage: No Diminished Hearing: No Gastrointestinal Disorders: No GERD: Yes Genitourinary: No Headaches: Yes (MIGRANES) Hypertension: Yes Immune Disorder: No Musculoskeletal: No Neurologic: Yes (DEMENTIA ) Psychiatric: Yes (DEMENTIA ) Reproductive: No Respiratory: Yes Migraines: Yes Myocardial Infarction: Yes Past Surgical History Abdominal Surgery: Yes (appendectomy ) AICD: No Appendectomy: Yes Ear Surgery: Yes Eye Surgery: Yes (CATARACT REMOVAL IN ONE EYE ) Joint Replacement: No Pacemaker: No Other Surgery: Yes Social History Alcohol Use: No Tobacco Use: Yes (1.5 PPD X 50 PLUS YRS/NOW 1PPD) Substance Use: No Allergies-Medications (Allergen,Severity, Reaction): Coded Allergies: No Known Allergies (Verified , 01/14/17) Reported Meds & Prescriptions Reported Meds & Active Scripts Active Reported Donepezil 10 Mg Tab 10 Mg PO DAILY Pentoxifylline CR (Pentoxifylline) 400 Mg Tab 400 Mg PO TID Memantine 10 Mg Tab 10 Mg PO BID Atorvastatin (Atorvastatin Calcium) 80 Mg Tab 80 Mg PO HS Metformin (Metformin HCl) 500 Mg Tab 500 Mg PO BIDPC With meals Lantus Inj (Insulin Glargine) 1,000 Unit/10 Ml Vial 30 Units SQ BID Losartan (Losartan Potassium) 100 Mg Tab 100 Mg PO DAILY Omeprazole 20 Mg Tab 20 Mg PO DAILY Potassium Chloride ER (Potassium Chloride) 10 Meq Tab 10 Meq PO DAILY Aspirin 81 Mg Tabdr 81 Mg PO DAILY Review of Systems General / Constitutional: No: Fever Eyes: No: Visual changes HENT: No: Headaches Cardiovascular: Positive: Chest Pain or Discomfort Respiratory: Positive: Shortness of Breath Gastrointestinal: No: Abdominal Pain Genitourinary: No: Dysuria Musculoskeletal: No: Pain Skin: No Rash Neurologic: No: Weakness Psychiatric: No: Depression Endocrine: No: Polydipsia Hematologic/Lymphatic: No: Easy Bruising Physical Exam Narrative GENERAL: Mild distress SKIN: Focused skin assessment warm/dry. HEAD: Atraumatic. Normocephalic. EYES: Pupils equal and round. No scleral icterus. No injection or drainage. ENT: No nasal bleeding or discharge. Mucous membranes pink and moist. NECK: Trachea midline. No JVD. CARDIOVASCULAR: Regular rate and rhythm. No murmur appreciated. RESPIRATORY: No accessory muscle use. Clear to auscultation. Breath sounds equal bilaterally. GASTROINTESTINAL: Abdomen soft, non-tender, nondistended. Hepatic and splenic margins not palpable. MUSCULOSKELETAL: No obvious deformities. No clubbing. No cyanosis. No edema. NEUROLOGICAL: Awake and alert. No obvious cranial nerve deficits. Motor grossly within normal limits. Normal speech. PSYCHIATRIC: Appropriate mood and affect; insight and judgment normal. Data Data Last Documented VS Vital Signs Date Time Temp Pulse Resp B/P (MAP) Pulse Ox O2 Delivery O2 Flow Rate FiO2 01/14/17 17:28 62 18 136/74 (94) 93 Room Air 01/14/17 14:37 98.4 Orders Orders Electrocardiogram (01/14/17 15:04) Complete Blood Count With Diff (01/14/17 15:04) Basic Metabolic Panel (Bmp) (01/14/17 15:04) Ckmb (Isoenzyme) Profile (01/14/17 15:04) Troponin I (01/14/17 15:04) Iv Access Insert/Monitor (01/14/17 15:04) Ecg Monitoring (01/14/17 15:04) Oxygen Administration (01/14/17 15:04) Oximetry (01/14/17 15:04) Chest, Pa & Lat (01/14/17 15:04) Aspirin Chew (Aspirin Chew) (01/14/17 16:45) Nitroglycerin Sl (Nitrostat Sl) (01/14/17 16:45) Prothrombin Time / Inr (Pt) (01/14/17 16:45) Act Partial Throm Time (Ptt) (01/14/17 16:45) Labs Laboratory Tests Test 01/14/17 16:30 White Blood Count 10.6 TH/MM3 Red Blood Count 4.85 MIL/MM3 Hemoglobin 14.8 GM/DL Hematocrit 44.0 % Mean Corpuscular Volume 90.9 FL Mean Corpuscular Hemoglobin 30.6 PG Mean Corpuscular Hemoglobin Concent 33.7 % Red Cell Distribution Width 14.5 % Platelet Count 164 TH/MM3 Mean Platelet Volume 9.9 FL Neutrophils (%) (Auto) 65.8 % Lymphocytes (%) (Auto) 20.9 % Monocytes (%) (Auto) 8.8 % Eosinophils (%) (Auto) 3.7 % Basophils (%) (Auto) 0.8 % Neutrophils # (Auto) 7.0 TH/MM3 Lymphocytes # (Auto) 2.2 TH/MM3 Monocytes # (Auto) 0.9 TH/MM3 Eosinophils # (Auto) 0.4 TH/MM3 Basophils # (Auto) 0.1 TH/MM3 CBC Comment DIFF FINAL Differential Comment Prothrombin Time 10.7 SEC Prothromb Time International Ratio 1.0 RATIO Activated Partial Thromboplast Time 28.4 SEC Blood Urea Nitrogen 16 MG/DL Creatinine 1.15 MG/DL Random Glucose 127 MG/DL Calcium Level 8.7 MG/DL Sodium Level 141 MEQ/L Potassium Level 3.6 MEQ/L Chloride Level 105 MEQ/L Carbon Dioxide Level 31.9 MEQ/L Anion Gap 4 MEQ/L Estimat Glomerular Filtration Rate 62 ML/MIN Total Creatine Kinase 46 U/L Troponin I LESS THAN 0.02 NG/ML MDM Medical Decision Making Medical Screen Exam Complete: Yes Emergency Medical Condition: Yes Medical Record Reviewed: Yes Interpretation(s) EKG at 1512: afib at 72bpm, qt/qtc: 437/461 Vital Signs Date Time Temp Pulse Resp B/P (MAP) Pulse Ox O2 Delivery O2 Flow Rate FiO2 01/14/17 16:22 68 16 93 Room Air 01/14/17 16:22 93 Room Air 01/14/17 14:37 98.4 65 18 144/67 (92) 94 Room Air Differential Diagnosis Differential includes ACS, arrhythmia, electrolyte abnormality Narrative Course 76-year-old male presents to emergency room complaints of chest pain which has been ongoing for the past 2 days. Patient was placed on a nurse receptionist upon arrival to the emergency room. Patient was given an aspirin, sublingual nitroglycerin ordered. CBC, CMP, cardiac enzymes ordered. Plan to monitor patient. Vital Signs Date Time Temp Pulse Resp B/P (MAP) Pulse Ox O2 Delivery O2 Flow Rate FiO2 01/14/17 17:28 62 18 136/74 (94) 93 Room Air 01/14/17 16:22 68 16 93 Room Air 01/14/17 16:22 93 Room Air 01/14/17 14:37 98.4 65 18 144/67 (92) 94 Room Air Laboratory Tests Test 01/14/17 16:30 White Blood Count 10.6 TH/MM3 (4.0-11.0) Red Blood Count 4.85 MIL/MM3 (4.50-5.90) Hemoglobin 14.8 GM/DL (13.0-17.0) Hematocrit 44.0 % (39.0-51.0) Mean Corpuscular Volume 90.9 FL (80.0-100.0) Mean Corpuscular Hemoglobin 30.6 PG (27.0-34.0) Mean Corpuscular Hemoglobin Concent 33.7 % (32.0-36.0) Red Cell Distribution Width 14.5 % (11.6-17.2) Platelet Count 164 TH/MM3 (150-450) Mean Platelet Volume 9.9 FL (7.0-11.0) Neutrophils (%) (Auto) 65.8 % (16.0-70.0) Lymphocytes (%) (Auto) 20.9 % (9.0-44.0) Monocytes (%) (Auto) 8.8 % (0.0-8.0) Eosinophils (%) (Auto) 3.7 % (0.0-4.0) Basophils (%) (Auto) 0.8 % (0.0-2.0) Neutrophils # (Auto) 7.0 TH/MM3 (1.8-7.7) Lymphocytes # (Auto) 2.2 TH/MM3 (1.0-4.8) Monocytes # (Auto) 0.9 TH/MM3 (0-0.9) Eosinophils # (Auto) 0.4 TH/MM3 (0-0.4) Basophils # (Auto) 0.1 TH/MM3 (0-0.2) CBC Comment DIFF FINAL Differential Comment Prothrombin Time 10.7 SEC (9.8-11.6) Prothromb Time International Ratio 1.0 RATIO Activated Partial Thromboplast Time 28.4 SEC (24.3-30.1) Blood Urea Nitrogen 16 MG/DL (7-18) Creatinine 1.15 MG/DL (0.60-1.30) Random Glucose 127 MG/DL (74-106) Calcium Level 8.7 MG/DL (8.5-10.1) Sodium Level 141 MEQ/L (136-145) Potassium Level 3.6 MEQ/L (3.5-5.1) Chloride Level 105 MEQ/L (98-107) Carbon Dioxide Level 31.9 MEQ/L (21.0-32.0) Anion Gap 4 MEQ/L (5-15) Estimat Glomerular Filtration Rate 62 ML/MIN (>89) Total Creatine Kinase 46 U/L (39-308) Troponin I LESS THAN 0.02 NG/ML Last Impressions Chest X-Ray 01/14/17 1504 Signed Impressions: Service Date/Time: Saturday, January 14, 2017 15:33 - CONCLUSION: Nodular density within the lingula. Consider further characterization utilizing a CT of the thorax. Otherwise, no acute abnormality. Klever Foreman Jr., MD Patient chest pain free after 1 SL nitro Discussed need for admission for patient. Patient refuses AMA: The risks of leaving against medical advice without further evaluation treatment were discussed with the patient. These risks include cardiac dysfunction, cardiac dysrhythmia, possible heart attack, possible stroke or . The patient indicated understanding of these risks and appeared to have the capacity to make this decision. Patient understands need for follow up with pcp as well as field engineer as soon as possible Diagnosis Primary Impression: Chest pain Qualified Codes: R07.9 - Chest pain, unspecified Additional Impression: Left against medical advice Referrals: Serg Payne MD Patient Instructions: General Instructions Additional Instructions: Please follow up with your primary care doctor as soon as possible Please follow up with field engineer as soon possible Return to the emergency room at any time for re-evaluation of your symptoms Disposition: 07 AGAINST MEDICAL ADVICE Condition: Serious Britni Hugo DO Jan 14, 2017 16:54
[2017-01-14 17:05] LABS: ANION GAP 4 MEQ/L (5-15); BICARBONATE 31.9 MEQ/L (21.0-32.0); BLOOD UREA NITROGEN 16 MG/DL (7-18); CHLORIDE 105 MEQ/L (98-107); GLOMERULAR FILTRATION RATE 62 ML/MIN (>89); POTASSIUM 3.6 MEQ/L (3.5-5.1); SODIUM (NA) 141 MEQ/L (136-145)
[2017-01-14 17:11] LABS: CREATINE KINASE 46 U/L (39-308)
[2017-01-14 17:28] VITALS: BP 136/74; PULSE 62; RESP 18; O2SAT 93
[2017-01-14 17:28] LABS: APTT (PATIENT) 28.4 SEC (24.3-30.1); PROTHROMBIN TIME - PATIENT 10.7 SEC (9.8-11.6)
--- NOTE | 2017-01-15 12:31 | EKG ---
Date Performed: 01/14/2017 Time Performed: 15:12:26 PTAGE: 76 years EKG: Sinus rhythm with atrial premature complexes Left anterior fascicular block Right bundle branch block ABNORMAL EC G PREVIOUS TRACING : 07/28/2016 17.07 Compared to prior tracing no significant change DOCTOR: Hung Oliveira Interpretating Date/Time 01/15/2017 12:30:30
== END 2017-01-14 18:39 | disposition left against medical advice (07) ==
LOC: NEPC 14:36
DX: R07.9 Chest pain, unspecified (principal); R94.31 Abnormal electrocardiogram [ECG] [EKG]; I25.10 Atherosclerotic heart disease of native coronary artery without angina pectoris; F17.210 Nicotine dependence, cigarettes, uncomplicated
CPT/HCPCS: 71020; 80048; 82550; 84484; 85025; 85610; 85730; 93005; 99285

== ENCOUNTER 2017-01-21 10:32 | Inpatient (IN) | payer OTHER, MEDICARE ==
[2017-01-21] VITALS (7 sets, daily range): BP systolic 126–176; BP diastolic 78–86; PULSE 67–81; RESP 18–22; TEMP 96.7–98.3; O2SAT 93–97
[~2017-01-21] VITALS: Ht 172.7 cm; Wt 86.0 kg
[2017-01-21] MEDS ORDERED: SODIUM CHLORIDE 0.9% FLUSH 10 ML FLUSH IVF PRN (11:15)
[2017-01-21] MEDS ORDERED: ASPIRIN 81 MG CHEW TAB PO ONE (11:15)
[2017-01-21] MEDS ORDERED: RESP: ALBUTEROL 2.5 MG/IPRATROPIUM 0.5 MG NEB (SCH) INH ONE (11:15)
--- NOTE | 2017-01-21 11:16 | PD ---
HPI Chief Complaint: Chest Pain Time Seen by Provider: 10:58 Travel History International Travel<30 days: No Contact w/Intl Traveler<30days: No Traveled to known affect area: No History of Present Illness HPI Patient comes back to the emergency department for further evaluation of his chest pain and shortness of breath ongoing for over a week at the advice of his primary care doctor. Patient has been on Levaquin for pneumonia for 5 days, but his symptoms are not getting any better. Denies any fevers, nausea, vomiting, abdominal pain, headache, loss or change in bowel or bladder, numbness or tingling anywhere, headaches, or anything making it worse. Patient describes pain as achy pain in left side of his chest without radiation. Symptoms improved with laying down flat. Denies anything making it worse. Patient has been using his nebulizer as well without improvement of symptoms. PFSH Past Medical History Asthma: Yes Blood Disorders: No Depression: Yes Cancer: No Cardiac Catheterization: Yes Cardiovascular Problems: Yes High Cholesterol: Yes Chest Pain: Yes COPD: Yes Cerebrovascular Accident: Yes Coronary Artery Disease: Yes Diabetes: Yes Patient Takes Glucophage: Yes (metformin) Diminished Hearing: No Gastrointestinal Disorders: No GERD: Yes Genitourinary: No Headaches: Yes (MIGRANES) Hypertension: Yes Immune Disorder: No Musculoskeletal: No Neurologic: Yes (DEMENTIA ) Psychiatric: Yes (DEMENTIA ) Reproductive: No Respiratory: Yes Migraines: Yes Myocardial Infarction: Yes Past Surgical History Abdominal Surgery: Yes (appendectomy ) AICD: No Appendectomy: Yes Ear Surgery: Yes Eye Surgery: Yes (CATARACT REMOVAL IN ONE EYE ) Joint Replacement: No Pacemaker: No Other Surgery: Yes Social History Alcohol Use: No Tobacco Use: Yes (1.5 PPD X 50 PLUS YRS/NOW 1PPD) Substance Use: No Allergies-Medications (Allergen,Severity, Reaction): Coded Allergies: No Known Allergies (Verified , 01/21/17) Reported Meds & Prescriptions Reported Meds & Active Scripts Active Reported Donepezil 10 Mg Tab 10 Mg PO DAILY Memantine 10 Mg Tab 10 Mg PO BID Atorvastatin (Atorvastatin Calcium) 80 Mg Tab 80 Mg PO HS Metformin (Metformin HCl) 500 Mg Tab 500 Mg PO BIDPC With meals Lantus Inj (Insulin Glargine) 1,000 Unit/10 Ml Vial 30 Units SQ BID Losartan (Losartan Potassium) 100 Mg Tab 100 Mg PO DAILY Omeprazole 20 Mg Tab 20 Mg PO DAILY Potassium Chloride ER (Potassium Chloride) 10 Meq Tab 10 Meq PO DAILY Review of Systems Except as stated in HPI: all other systems reviewed are Neg Physical Exam Narrative GENERAL: Well-developed, overly nourished, in no acute distress, and non-ill appearing. SKIN: Focused skin assessment warm and dry. HEAD: Atraumatic. Normocephalic. EYES: Pupils equal and round. EOMI. No scleral icterus. No injection or drainage. ENT: No nasal bleeding or discharge. Mucous membranes pink and moist. NECK: Trachea midline. No JVD. Supple. No nuclear rigidity. CARDIOVASCULAR: Regular rate and rhythm. No murmur appreciated. RESPIRATORY: No accessory muscle use. No respiratory distress. Crackles noted left lung base with scant wheezing throughout. MUSCULOSKELETAL: No obvious deformities. No clubbing. No cyanosis. No edema. Full range of motion. NEUROLOGICAL: Awake and alert. No obvious cranial nerve deficits. Motor grossly within normal limits. Normal speech. PSYCHIATRIC: Appropriate mood and affect; insight and judgment normal. Data Data Last Documented VS Vital Signs Date Time Temp Pulse Resp B/P (MAP) Pulse Ox O2 Delivery O2 Flow Rate FiO2 01/21/17 11:23 22 96 Nasal Cannula 2.00 01/21/17 11:22 01/21/17 10:34 97.7 67 Orders Orders Complete Blood Count With Diff (01/21/17 11:08) Basic Metabolic Panel (Bmp) (01/21/17 11:08) Act Partial Throm Time (Ptt) (01/21/17 11:08) Prothrombin Time / Inr (Pt) (01/21/17 11:08) Magnesium (Mg) (01/21/17 11:08) Ckmb (Isoenzyme) Profile (01/21/17 11:08) Troponin I (01/21/17 11:08) Iv Access Insert/Monitor (01/21/17 11:08) Electrocardiogram (01/21/17 11:08) Ecg Monitoring (01/21/17 11:08) Oximetry (01/21/17 11:08) Oxygen Administration (01/21/17 11:08) Chest, Single Ap (01/21/17 11:08) Ct Pulmonary Angiogram (01/21/17 11:08) Sodium Chloride 0.9% Flush (Ns Flush) (01/21/17 11:15) Albuterol-Ipratropium Neb (Duoneb Neb) (01/21/17 11:15) B-Type Natriuretic Peptide (01/21/17 11:08) Aspirin Chew (Aspirin Chew) (01/21/17 11:15) Lactic Acid Sepsis Protocol (01/21/17 11:34) Blood Culture (01/21/17 11:34) Ceftriaxone Inj (Rocephin Inj) (01/21/17 11:45) Azithromycin Inj (Zithromax Inj) (01/21/17 11:45) Iohexol 350 Inj (Omnipaque 350 Inj) (01/21/17 12:26) Admit Order (Ed Use Only) (01/21/17 13:26) Admit To Inpatient (01/21/17 ) Vital Signs (Adult) Q4H (01/21/17 13:25) Activity Oob With Assistance (01/21/17 13:25) Intake + Output SARAY.QSHIFT (01/21/17 13:25) Diet Heart Healthy (01/21/17 Lunch) Sodium Chlor 0.9% 1000 Ml Inj (Ns 1000 M (01/21/17 13:25) Sodium Chloride 0.9% Flush (Ns Flush) (01/21/17 13:30) Sodium Chloride 0.9% Flush (Ns Flush) (01/21/17 21:00) Acetaminophen (Tylenol) (01/21/17 13:30) Ondansetron Inj (Zofran Inj) (01/21/17 13:30) Temazepam (Restoril) (01/21/17 13:30) Complete Blood Count With Diff (01/22/17 06:00) Resp Oxygen Arnie C Titrat 1-4 L (01/21/17 ) Pt Request For Service (01/21/17 13:25) Case Management Consult (01/21/17 13:25) Enoxaparin Inj (Lovenox Inj) (01/21/17 13:30) Scd Bilateral/Knee High SARAY.BID (01/21/17 13:25) Raad Bilateral/Knee High SARAY.QSHIFT (01/21/17 13:25) Naloxone Inj (Narcan Inj) (01/21/17 13:30) Docusate Sodium-Senna (Esmer-Colace) (01/21/17 21:00) Magnesium Hydroxide Liq (Milk Of Magnesi (01/21/17 13:30) Sennosides (Senokot) (01/21/17 13:30) Bisacodyl Supp (Dulcolax Supp) (01/21/17 13:30) Lactulose Liq (Lactulose Liq) (01/21/17 13:30) Inpatient Certification (01/21/17 ) Labs Laboratory Tests Test 01/21/17 11:15 01/21/17 12:00 White Blood Count 12.1 TH/MM3 Red Blood Count 5.02 MIL/MM3 Hemoglobin 15.1 GM/DL Hematocrit 45.7 % Mean Corpuscular Volume 91.0 FL Mean Corpuscular Hemoglobin 30.0 PG Mean Corpuscular Hemoglobin Concent 33.0 % Red Cell Distribution Width 14.2 % Platelet Count 213 TH/MM3 Mean Platelet Volume 9.5 FL Neutrophils (%) (Auto) 66.3 % Lymphocytes (%) (Auto) 21.0 % Monocytes (%) (Auto) 7.0 % Eosinophils (%) (Auto) 4.9 % Basophils (%) (Auto) 0.8 % Neutrophils # (Auto) 8.0 TH/MM3 Lymphocytes # (Auto) 2.5 TH/MM3 Monocytes # (Auto) 0.8 TH/MM3 Eosinophils # (Auto) 0.6 TH/MM3 Basophils # (Auto) 0.1 TH/MM3 CBC Comment DIFF FINAL Differential Comment Prothrombin Time 10.7 SEC Prothromb Time International Ratio 1.0 RATIO Activated Partial Thromboplast Time 26.8 SEC Blood Urea Nitrogen 14 MG/DL Creatinine 0.94 MG/DL Random Glucose 143 MG/DL Calcium Level 8.7 MG/DL Magnesium Level 1.6 MG/DL Sodium Level 143 MEQ/L Potassium Level 3.7 MEQ/L Chloride Level 103 MEQ/L Carbon Dioxide Level 34.7 MEQ/L Anion Gap 5 MEQ/L Estimat Glomerular Filtration Rate 78 ML/MIN Total Creatine Kinase 74 U/L Troponin I LESS THAN 0.02 NG/ML B-Type Natriuretic Peptide 41 PG/ML Lactic Acid Level 1.4 mmol/L MDM Medical Decision Making Medical Screen Exam Complete: Yes Emergency Medical Condition: Yes Medical Record Reviewed: Yes Interpretation(s) EKG reviewed by Dr. Lightburn shows sinus rhythm ventricular rate is 72. No STEMI. Last Impressions Chest X-Ray 01/21/17 1108 Signed Impressions: Service Date/Time: Saturday, January 21, 2017 11:27 - CONCLUSION: 1. Left basilar/lingular atelectasis/scarring. Possible small associated effusion. 2. Right lung is clear Andriy Vega MD CT Angiography 01/21/17 1108 Signed Impressions: Service Date/Time: Saturday, January 21, 2017 12:20 - CONCLUSION: 1. No evidence of pulmonary embolism. 2. New reticulonodular opacities in the left lower lobe and posterior lingula. Differential diagnosis includes pneumonia. The nodular nature of the infiltrate is somewhat concerning. Short-term followup CT is recommended after treatment in 6-8 weeks. 3. Small left effusion which is new. Gennaro Wu MD Differential Diagnosis Pneumonia, atypical chest pain, PE, metabolic disturbance, failed outpatient therapy, CHF, COPD exacerbation, arrhythmia, other Narrative Course The patient was seen and examined. IV was established and patient was placed on cardiac monitoring. Initial laboratory and radiological studies were ordered. Patient was given a dose of Rocephin, Zithromax, and a DuoNeb breathing treatment the patient reported improved his symptoms. Discussed all findings and plan of care with patient and his . Patient is agreeable for admission. All questions were answered. Discussed patient with Dr. Hancock, who is in agreement with plan of care and disposition. Discussed patient with hospitalist who is agreeable to admit the patient. Physician Communication Physician Communication [phone] Tom, who is agreeable to admit the patient. Diagnosis Primary Impression: Pneumonia Qualified Codes: J18.1 - Lobar pneumonia, unspecified organism Additional Impression: Failure of outpatient treatment Admitting Information Admitting Physician Requests: Admit Condition: Stable Ernie Putnam Jan 21, 2017 11:16
[2017-01-21 11:32] LABS: BASOPHIL # 0.1 TH/MM3 (0-0.2); BASOPHIL % 0.8 % (0.0-2.0); EOSINOPHIL # 0.6 TH/MM3 (0-0.4); EOSINOPHIL % 4.9 % (0.0-4.0); HEMATOCRIT 45.7 % (39.0-51.0); HEMO FLAGS DIFF FINAL; LYMPHOCYTE # 2.5 TH/MM3 (1.0-4.8); NEUT % 66.3 % (16.0-70.0); PLATELET COUNT 213 TH/MM3 (150-450); RED BLOOD COUNT 5.02 MIL/MM3 (4.50-5.90); RED CELL DISTRIBUTION WIDTH 14.2 % (11.6-17.2); WHITE BLOOD COUNT 12.1 TH/MM3 (4.0-11.0)
[2017-01-21 11:39] LABS: APTT (PATIENT) 26.8 SEC (24.3-30.1); PROTHROMBIN TIME - PATIENT 10.7 SEC (9.8-11.6)
[2017-01-21] MEDS ORDERED: AZITHROMYCIN INJ 500 MG in SODIUM CHLOR 0.9% 250 ML INJ 250 ML IV ONE (11:45)
[2017-01-21] MEDS ORDERED: cefTRIAXone INJ 1,000 MG in SODIUM CHLORIDE 0.9% INJ 100 ML IV ONE (11:45)
--- NOTE | 2017-01-21 11:46 | RADRPT ---
EXAM DATE/TIME: 01/21/2017 11:27 [facility] COMPARISON: CHEST SINGLE AP, July 28, 2016, 17:07. INDICATIONS : Shortness of breath. MEDICAL HISTORY : Stroke. Heart attack. SURGICAL HISTORY : Appendectomy. ENCOUNTER: Initial ACUITY: 1 day PAIN SCORE: 0/10 LOCATION: Bilateral chest FINDINGS: A single view of the chest demonstrates the lungs to be symmetrically aerated with left basilar/lingu lar atelectasis or scarring. Possible small associated left-sided effusion. Right lung is grossly jocelyn ar. Heart size is normal. Osseous structures are intact. CONCLUSION: 1. Left basilar/lingular atelectasis/scarring. Possible small associated effusion. 2. Right lung is clear Andriy Vega MD on January 21, 2017 at 11:43 Board Certified Radiologist. This report was verified electronically.
[2017-01-21 11:47] LABS: ANION GAP 5 MEQ/L (5-15); BICARBONATE 34.7 MEQ/L (21.0-32.0); CHLORIDE 103 MEQ/L (98-107); GLOMERULAR FILTRATION RATE 78 ML/MIN (>89); MAGNESIUM 1.6 MG/DL (1.5-2.5); POTASSIUM 3.7 MEQ/L (3.5-5.1); SODIUM (NA) 143 MEQ/L (136-145)
[2017-01-21 11:52] LABS: BLOOD UREA NITROGEN 14 MG/DL (7-18)
[2017-01-21 11:58] LABS: CREATINE KINASE 74 U/L (39-308)
[2017-01-21] MEDS ORDERED: IOHEXOL 350 MG/ML 10 ML VIAL (for RAD DIAG) IVCONTRAST ONE (12:26)
--- NOTE | 2017-01-21 12:51 | RADRPT ---
EXAM DATE/TIME: 01/21/2017 12:20 [facility] COMPARISON: CT PULMONARY ANGIOGRAM, July 14, 2015, 7:23. INDICATIONS : Short of breath and chest pain , evaluate for pulmonary embolism IV CONTRAST: 68 cc Omnipaque 350 (iohexol) IV RADIATION DOSE: 23.30 CTDIvol (mGy) MEDICAL HISTORY : Hypertension. Chronic obstructive pulmonary disease. Diabetes mellitus type 2.Asthma SURGICAL HISTORY : None. ENCOUNTER: Initial ACUITY: 1 week PAIN SCALE: 5/10 LOCATION: chest TECHNIQUE: Volumetric scanning of the chest was performed using a pulmonary embolism protocol MIP images were re constructed. Using automated exposure control and adjustment of the mA and/or kV according to patien t size, radiation dose was kept as low as reasonably achievable to obtain optimal diagnostic quality images. DICOM format image data is available electronically for review and comparison. Follow-up recommendations for detected pulmonary nodules are based at a minimum on nodule size and pa tient risk factors according to Fleischner Society Guidelines. FINDINGS: PULMONARY ARTERIES: No filling defects are seen in the pulmonary arteries through the segmental level. LUNGS: There is no pneumothorax . There are multiple small new reticulonodular opacities in the left lower lobe and posterior lingula. No concerning pulmonary nodule is visualized. PLEURAE: There is a new small left pleural effusion. MEDIASTINUM: There is good visualization of the great vessels of the middle mediastinum. No evidence of mediastin al or hilar adenopathy/mass. Coronary calcifications are present. MUSCULOSKELETAL: Within normal limits for patient age. MISCELLANEOUS: The visualized upper abdominal organs demonstrate no acute abnormality. CONCLUSION: 1. No evidence of pulmonary embolism. 2. New reticulonodular opacities in the left lower lobe and posterior lingula. Differential diagnosis includes pneumonia. The nodular nature of the infiltrate is somewhat concerning. Short-term followup CT is recommended after treatment in 6-8 weeks. 3. Small left effusion which is new. Gennaro Wu MD on January 21, 2017 at 12:42 Board Certified Radiologist. This report was verified electronically.
[2017-01-21] MEDS ORDERED: TEMAZEPAM 15 MG CAP PO PRN (13:30)
[2017-01-21] MEDS ORDERED: BISACODYL 10 MG SUPP RECTAL PRN (13:30)
[2017-01-21] MEDS ORDERED: ONDANSETRON HCL 4 MG/2 ML VIAL IVP PRN (13:30)
[2017-01-21] MEDS ORDERED: MAGNESIUM HYDROXIDE SUSP 30 ML CUP PO PRN (13:30)
[2017-01-21] MEDS ORDERED: RESP: ALBUTEROL 2.5 MG/IPRATROPIUM 0.5 MG NEB (PRN) NEB (13:30)
[2017-01-21] MEDS ORDERED: LACTULOSE SYRUP 20 GM/30 ML CUP PO PRN (13:30)
[2017-01-21] MEDS ORDERED: SODIUM CHLORIDE 0.9% FLUSH 10 ML FLUSH IV FLUSH PRN (13:30)
[2017-01-21] MEDS ORDERED: NALOXONE HCL 0.4 MG/ML AMP IV PUSH PRN (13:30)
[2017-01-21] MEDS ORDERED: SENNOSIDES 8.6 MG TAB PO PRN (13:30)
--- NOTE | 2017-01-21 13:42 | HHI.HP ---
HPI Service [facility] Primary Care Physician Chalo Baird MD Admission Diagnosis pneumonia, failed outpatient therapy Diagnoses: Chief Complaint: failure outpatint treatment for PNA Travel History International Travel<30 Days: No Contact w/Intl Traveler <30 Da: No Traveled to Known Affected Are: No History of Present Illness 76-year-old male with a past medical history of dementia, HTN, GERD, CAD, HLD, COPD, DM, CVA, PVD, depression was sent to the ED by his PCP for failed OP treatment of PNA. Patient was treated with 7 days course of Levaquin without improvement. Patient come to the emergency department for further evaluation of his chest pain and shortness of breath ongoing for over a week at the advice of his primary care doctor. Patient has been on Levaquin for pneumonia for 5 days, but his symptoms are not getting any better. Denies any fevers, nausea, vomiting, abdominal pain, headache, loss or change in bowel or bladder, numbness or tingling anywhere, headaches, or anything making it worse. Patient describes pain as achy pain in left side of his chest without radiation. Symptoms improved with laying down flat. Denies anything making it worse. Patient has been using his nebulizer as well without improvement of symptoms. Review of Systems Except as stated in HPI: all other systems reviewed are Neg Past Family Social History Past Medical History Hypertension GERD Coronary artery disease Hyperlipidemia COPD Depression Diabetes mellitus History of CVA Peripheral vascular disease Past Surgical History Appendectomy Reported Medications Reported Meds & Active Scripts Active Reported Donepezil 10 Mg Tab 10 Mg PO DAILY Memantine 10 Mg Tab 10 Mg PO BID Atorvastatin (Atorvastatin Calcium) 80 Mg Tab 80 Mg PO HS Metformin (Metformin HCl) 500 Mg Tab 500 Mg PO BIDPC With meals Lantus Inj (Insulin Glargine) 1,000 Unit/10 Ml Vial 30 Units SQ BID Losartan (Losartan Potassium) 100 Mg Tab 100 Mg PO DAILY Omeprazole 20 Mg Tab 20 Mg PO DAILY Potassium Chloride ER (Potassium Chloride) 10 Meq Tab 10 Meq PO DAILY Allergies: Coded Allergies: No Known Allergies (Verified , 01/21/17) Family History Family history of hypertension Social History Tobacco use: 1.5 PPD for more than 50 years. Denies EtOH use, illicit drug use. Physical Exam Vital Signs Vital Signs Date Time Temp Pulse Resp B/P (MAP) Pulse Ox O2 Delivery O2 Flow Rate FiO2 01/21/17 11:23 22 96 Nasal Cannula 2.00 01/21/17 11:22 22 96 Nasal Cannula 2.00 01/21/17 11:21 96 Nasal Cannula 2.00 01/21/17 10:34 97.7 67 18 176/78 (110) 94 Room Air Physical Exam GENERAL: This is a well-nourished, well-developed patient, in no apparent distress. SKIN: No rashes, ecchymoses or lesions. Cool and dry. HEAD: Atraumatic. Normocephalic. No temporal or scalp tenderness. EYES: Pupils equal round and reactive. Extraocular motions intact. No scleral icterus. No injection or drainage. ENT: Nose without bleeding, purulent drainage or septal hematoma. Throat without erythema, tonsillar hypertrophy or exudate. Uvula midline. Airway patent. NECK: Trachea midline. No JVD or lymphadenopathy. Supple, nontender, no meningeal signs. CARDIOVASCULAR: Regular rate and rhythm without murmurs, gallops, or rubs. RESPIRATORY: Clear to auscultation. Breath sounds equal bilaterally. No wheezes , rales, or rhonchi. GASTROINTESTINAL: Abdomen soft, non-tender, nondistended. No hepato-splenomegaly , or palpable masses. No guarding. MUSCULOSKELETAL: Extremities without clubbing, cyanosis, or edema. No joint tenderness, effusion, or edema noted. No calf tenderness. Negative Homans sign bilaterally. NEUROLOGICAL: Awake and alert. Cranial nerves II through XII intact. Motor and sensory grossly within normal limits. Five out of 5 muscle strength in all muscle groups. Normal speech. Laboratory Laboratory Tests Test 01/21/17 11:15 01/21/17 12:00 White Blood Count 12.1 Red Blood Count 5.02 Hemoglobin 15.1 Hematocrit 45.7 Mean Corpuscular Volume 91.0 Mean Corpuscular Hemoglobin 30.0 Mean Corpuscular Hemoglobin Concent 33.0 Red Cell Distribution Width 14.2 Platelet Count 213 Mean Platelet Volume 9.5 Neutrophils (%) (Auto) 66.3 Lymphocytes (%) (Auto) 21.0 Monocytes (%) (Auto) 7.0 Eosinophils (%) (Auto) 4.9 Basophils (%) (Auto) 0.8 Neutrophils # (Auto) 8.0 Lymphocytes # (Auto) 2.5 Monocytes # (Auto) 0.8 Eosinophils # (Auto) 0.6 Basophils # (Auto) 0.1 CBC Comment DIFF FINAL Differential Comment Prothrombin Time 10.7 Prothromb Time International Ratio 1.0 Activated Partial Thromboplast Time 26.8 Blood Urea Nitrogen 14 Creatinine 0.94 Random Glucose 143 Calcium Level 8.7 Magnesium Level 1.6 Sodium Level 143 Potassium Level 3.7 Chloride Level 103 Carbon Dioxide Level 34.7 Anion Gap 5 Estimat Glomerular Filtration Rate 78 Total Creatine Kinase 74 Troponin I LESS THAN 0.02 B-Type Natriuretic Peptide 41 Lactic Acid Level 1.4 Date/Time Source Procedure Growth Status 01/21/17 12:10 Blood Peripheral Aerobic Blood Culture Pending Received 01/21/17 12:10 Blood Peripheral Anaerobic Blood Culture Pending Received Result Diagram: 01/21/17 1115 01/21/17 1115 Imaging Last Impressions Chest X-Ray 01/21/17 1108 Signed Impressions: Service Date/Time: Saturday, January 21, 2017 11:27 - CONCLUSION: 1. Left basilar/lingular atelectasis/scarring. Possible small associated effusion. 2. Right lung is clear Andriy Vega MD CT Angiography 01/21/17 110 Signed Impressions: Service Date/Time: Saturday, January 21, 2017 12:20 - CONCLUSION: 1. No evidence of pulmonary embolism. 2. New reticulonodular opacities in the left lower lobe and posterior lingula. Differential diagnosis includes pneumonia. The nodular nature of the infiltrate is somewhat concerning. Short-term followup CT is recommended after treatment in 6-8 weeks. 3. Small left effusion which is new. Gennaro Wu MD Caprini VTE Risk Assessment Caprini VTE Risk Assessment: Mod/High Risk (score >= 2) Caprini Risk Assessment Model Point Value = 1 Point Value = 2 Point Value = 3 Point Value = 5 Age 41-60 Minor surgery BMI > 25 kg/m2 Swollen legs Varicose veins or History of unexplained or recurrent spontaneous Oral contraceptives or hormone replacement Sepsis (< 1 month) Serious lung disease, including pneumonia (< 1 month) Abnormal pulmonary function Acute myocardial infarction Congestive heart failure (< 1 month) History of inflammatory bowel disease Medical patient at bed rest Age 61-74 Arthroscopic surgery Major open surgery (> 45 min) Laparoscopic surgery (> 45 min) Malignancy Confined to bed (> 72 hours) Immobilizing plaster cast Central venous access Age >= 75 History of VTE Family history of VTE Factor V Leiden Prothrombin [id number] Lupus anticoagulant Anticardiolipin antibodies Elevated serum homocysteine Heparin-induced thrombocytopenia Other congenital or acquired thrombophilia Stroke (< 1 month) Elective arthroplasty Hip, pelvis, or leg fracture Acute spinal cord injury (< 1 month) Prophylaxis Regimen Total Risk Factor Score Risk Level Prophylaxis Regimen 0-1 Low Early ambulation 2 Moderate Order ONE of the following: *Sequential Compression Device (SCD) *Heparin 5000 units SQ BID 3-4 Higher Order ONE of the following medications: *Heparin 5000 units SQ TID *Enoxaparin/Lovenox 40 mg SQ daily (WT < 150 kg, CrCl > 30 mL/min) *Enoxaparin/Lovenox 30 mg SQ daily (WT < 150 kg, CrCl > 10-29 mL/min) *Enoxaparin/Lovenox 30 mg SQ BID (WT < 150 kg, CrCl > 30 mL/min) AND/OR *Sequential Compression Device (SCD) 5 or more Highest Order ONE of the following medications: *Heparin 5000 units SQ TID (Preferred with Epidurals) *Enoxaparin/Lovenox 40 mg SQ daily (WT < 150 kg, CrCl > 30 mL/min) *Enoxaparin/Lovenox 30 mg SQ daily (WT < 150 kg, CrCl > 10-29 mL/min) *Enoxaparin/Lovenox 30 mg SQ BID (WT < 150 kg, CrCl > 30 mL/min) AND *Sequential Compression Device (SCD) Assessment and Plan Assessment and Plan 76 year-old man with Community Acquired Pneumonia, failed OP treatment Nodular density on left lower lobe and posterior lingula on CT, plan to repeat CT in 6-[address] chest reviewed no PE, shows PNA left basilar/lingular Start Azithromycin IV and Rocephin IV. Obtain sputum cultures if possible. Check for Influenza, urinary legionella and pneumococcus Ag Blood cx pending Mild leukocytosis no evidence of sepsis Monitor VS closely IVF EKG reviewed NSR, no ST changes, no TW inversion Duonebs as need Dementia Resume outpatient medications Hypertension Labile BP, resume outpatient medication and Vasotec when necessary Diabetes type 2 Hold Lantus for tonight, start insulin sliding scale Other chronic medical conditions Resume outpatient medications DVT prophylaxis: Bilateral SCDs/ lovenox Discussed Condition With patient, nurse, ED physician/ED PA Physician Certification 2 Midnight Certification Type: Admission for Inpatient Services Order for Inpatient Services The services are ordered in accordance with Medicare regulations or non- Medicare payer requirements, as applicable. In the case of services not specified as inpatient-only, they are appropriately provided as inpatient services in accordance with the 2-midnight benchmark. Estimated LOS (days): 3 days is the estimated time the patient will need to remain in the hospital, assuming treatment plan goals are met and no additional complications. Post-Hospital Plan: Home Mila Tom MD Jan 21, 2017 13:42
[2017-01-21] MEDS: SODIUM CHLOR 0.9% 1000 ML INJ 1,000 ML IV SCH ×2 (16:19→20:58)
[2017-01-21] MEDS: ENOXAPARIN SODIUM 40 MG/0.4 ML SYRINGE SQ SCH (16:19)
[2017-01-21] MEDS: RESP: ALBUTEROL 2.5 MG/IPRATROPIUM 0.5 MG NEB (SCH) NEB ×2 (17:55→21:36)
[2017-01-21] MEDS: SODIUM CHLORIDE 0.9% FLUSH 10 ML FLUSH IV FLUSH SCH (20:57)
[2017-01-21] MEDS: DOCUSATE SODIUM 50 MG/SENNA 8.6 MG TAB PO SCH (20:57)
[2017-01-21] MEDS: MEMANTINE HCL 10 MG TAB PO SCH (20:57)
[2017-01-21] MEDS: ATORVASTATIN 80 MG TAB PO SCH (20:57)
[2017-01-21] MEDS: INSULIN DETEMIR 100 UNITS/ML VIAL SQ SCH (20:58)
[2017-01-21] MEDS: ACETAMINOPHEN 325 MG TAB PO PRN (21:00)
[2017-01-22] VITALS (7 sets, daily range): BP systolic 106–187; BP diastolic 57–83; PULSE 62–73; RESP 18–20; TEMP 96.8–97.9; O2SAT 91–97
[2017-01-22 06:02] LABS: AUTOMATED NEUTROPHIL # 6.7 TH/MM3 (1.8-7.7); BASOPHIL # 0.1 TH/MM3 (0-0.2); BASOPHIL % 0.6 % (0.0-2.0); EOSINOPHIL # 0.6 TH/MM3 (0-0.4); EOSINOPHIL % 5.4 % (0.0-4.0); HEMATOCRIT 41.4 % (39.0-51.0); HEMO FLAGS DIFF FINAL; LYMPHOCYTE # 3.2 TH/MM3 (1.0-4.8); MEAN CELL VOLUME 91.2 FL (80.0-100.0); MEAN CORPUSCULAR HEMOGLOBIN 30.7 PG (27.0-34.0); MEAN CORPUSCULAR HGB CONC 33.7 % (32.0-36.0); MONO % 8.1 % (0.0-8.0); NEUT % 57.9 % (16.0-70.0); PLATELET COUNT 185 TH/MM3 (150-450); RED BLOOD COUNT 4.53 MIL/MM3 (4.50-5.90); RED CELL DISTRIBUTION WIDTH 14.1 % (11.6-17.2); WHITE BLOOD COUNT 11.6 TH/MM3 (4.0-11.0)
[2017-01-22 06:23] LABS: BICARBONATE 31.1 MEQ/L (21.0-32.0); POTASSIUM 3.4 MEQ/L (3.5-5.1)
[2017-01-22] MEDS: SODIUM CHLORIDE 0.9% FLUSH 10 ML FLUSH IV FLUSH SCH ×2 (07:31→20:39)
[2017-01-22] MEDS: MEMANTINE HCL 10 MG TAB PO SCH ×2 (07:34→20:40)
[2017-01-22] MEDS: DONEPEZIL HCL 5 MG TAB PO SCH (07:34)
[2017-01-22] MEDS: LOSARTAN 50 MG TAB PO SCH (07:34)
[2017-01-22] MEDS: DOCUSATE SODIUM 50 MG/SENNA 8.6 MG TAB PO SCH ×2 (07:34→20:40)
[2017-01-22] MEDS: POTASSIUM CHLORIDE 10 MEQ CONTROLLED RELEASE TAB PO SCH (07:34)
[2017-01-22] MEDS: PANTOPRAZOLE SOD 20 MG DELAYED RELEASE TAB PO SCH (07:34)
[2017-01-22] MEDS: INSULIN DETEMIR 100 UNITS/ML VIAL SQ SCH ×2 (07:35→20:40)
[2017-01-22] MEDS: SODIUM CHLOR 0.9% 1000 ML INJ 1,000 ML IV SCH ×2 (07:35→20:39)
[2017-01-22] MEDS: RESP: ALBUTEROL 2.5 MG/IPRATROPIUM 0.5 MG NEB (SCH) NEB ×4 (08:04→19:58)
[2017-01-22] MEDS: cefTRIAXone INJ 1,000 MG in SODIUM CHLORIDE 0.9% INJ 100 ML IV SCH (11:33)
[2017-01-22] MEDS ORDERED: AZITHROMYCIN INJ 500 MG in SODIUM CHLOR 0.9% 250 ML INJ 250 ML IV SCH (13:00)
[2017-01-22] MEDS ORDERED: ENALAPRILAT 1.25 MG/ML VIAL IV PUSH PRN (14:30)
--- NOTE | 2017-01-22 14:55 | EKG ---
Date Performed: 01/21/2017 Time Performed: 11:25:58 PTAGE: 76 years EKG: Sinus rhythm MARKED RIGHT AXIS DEVIATION RIGHT BUNDLE BRANCH BLOCK POSSIBLE ANTERIOR MYOCARDIAL INFARCTION ABNORM AL ECG PREVIOUS TRACING : 01/14/2017 15.12 Compared to prior tracing no significant change DOCTOR: Opal Segal Interpretating Date/Time 01/22/2017 14:52:05
--- NOTE | 2017-01-22 15:14 | HHI.PR ---
Subjective Remarks Failed outpatient pneumonia treatment with Levaquin. Now on azithromycin and Rocephin. Patient says he's feeling better today. No new complaints. Objective Vital Signs Date Time Temp Pulse Resp B/P (MAP) Pulse Ox O2 Delivery O2 Flow Rate FiO2 01/22/17 12:00 97.0 63 18 172/78 (109) 96 01/22/17 08:04 92 Nasal Cannula 2.00 01/22/17 08:00 97.5 63 20 187/79 (115) 94 01/22/17 00:42 97.9 70 18 156/73 (100) 97 01/21/17 21:36 95 Nasal Cannula 2.00 01/21/17 20:00 96.7 73 18 139/78 (98) 96 01/21/17 17:57 97 Nasal Cannula 2.00 01/21/17 16:00 98.3 81 18 126/86 (99) 93 01/21/17 15:40 I/O 01/21/17 01/21/17 01/21/17 01/22/17 01/22/17 01/22/17 07:00 15:00 23:00 07:00 15:00 23:00 Intake Total 1312 ml 100 ml Output Total 450 ml Balance 862 ml 100 ml Intake Oral 480 ml IV Total 832 ml 100 ml Output Urine Total 450 ml # Voids 1 # Bowel Movements 0 Result Diagram: 01/22/1752101/22/17521 Objective Remarks GENERAL: NAD, A&Ox3 HEAD: Normocephalic. NECK: Supple, trachea midline. No lymphadenopathy. EYES: No scleral icterus. No injection or drainage. CARDIOVASCULAR: Regular rate and rhythm without murmurs, gallops, or rubs. RESPIRATORY: Breath sounds equal bilaterally. No accessory muscle use. Wheezing at right. GASTROINTESTINAL: Abdomen soft, non-tender, nondistended. MUSCULOSKELETAL: No cyanosis, or edema. SKIN: Warm and dry. NEURO: No focal neurological deficitis. A/P Problem List: (1) Failure of outpatient treatment ICD Code: Z78.9 - Other specified health status Status: Acute (2) Pneumonia ICD Code: J18.9 - Pneumonia, unspecified organism Status: Acute Assessment and Plan Assessment and Plan 76 year-old male admitted secondary to outpatient treatment failure of pneumonia Community Acquired Pneumonia failed OP treatment Continue azithromycin and Rocephin Probiotics Oxygen supplementation Nodular density on left lower lobe and posterior lingula on CT plan to repeat CT in 6-8 weeks Tobaccoism Nicotine dependence Patient has been counseled to quit smoking Dementia Continue outpatient medications Hypertension Follow blood pressures Vasotec when necessary Continue baseline treatments Diabetes type 2 Continue insulin sliding scale Diabetic diet Follow blood sugars DVT prophylaxis Lovenox Problem Qualifiers (1) Pneumonia: Qualified Codes: J18.1 - Lobar pneumonia, unspecified organism Terrence Herndon MD Jan 22, 2017 15:14
[2017-01-22] MEDS: cloNIDine HCL 0.1 MG TAB PO PRN (15:24)
[2017-01-22] MEDS: ENOXAPARIN SODIUM 40 MG/0.4 ML SYRINGE SQ SCH (15:24)
[2017-01-22] MEDS: ATORVASTATIN 80 MG TAB PO SCH (20:40)
[2017-01-23 00:30] VITALS: BP 186/83; PULSE 65; RESP 20; TEMP 96.4; O2SAT 95
[2017-01-23] MEDS: SODIUM CHLOR 0.9% 1000 ML INJ 1,000 ML IV SCH (04:57)
[2017-01-23] MEDS: RESP: ALBUTEROL 2.5 MG/IPRATROPIUM 0.5 MG NEB (SCH) NEB ×2 (07:38→11:05)
[2017-01-23 07:39] VITALS: O2SAT 95
[2017-01-23] MEDS: INSULIN DETEMIR 100 UNITS/ML VIAL SQ SCH (07:47)
[2017-01-23 07:48] VITALS: BP 189/86; PULSE 73; RESP 18; TEMP 96.6; O2SAT 93
[2017-01-23] MEDS: PANTOPRAZOLE SOD 20 MG DELAYED RELEASE TAB PO SCH (07:48)
[2017-01-23] MEDS: LOSARTAN 50 MG TAB PO SCH (07:48)
[2017-01-23] MEDS: MEMANTINE HCL 10 MG TAB PO SCH (07:49)
[2017-01-23] MEDS: DOCUSATE SODIUM 50 MG/SENNA 8.6 MG TAB PO SCH (07:49)
[2017-01-23] MEDS: POTASSIUM CHLORIDE 10 MEQ CONTROLLED RELEASE TAB PO SCH (07:49)
[2017-01-23] MEDS: SODIUM CHLORIDE 0.9% FLUSH 10 ML FLUSH IV FLUSH SCH (07:49)
[2017-01-23] MEDS: DONEPEZIL HCL 5 MG TAB PO SCH (07:49)
[2017-01-23] MEDS ORDERED: cloNIDine HCL 0.1 MG TAB PO PRN (09:00)
[2017-01-23] MEDS ORDERED: ENALAPRILAT 1.25 MG/ML VIAL IV PUSH PRN (09:00)
[2017-01-23 09:12] VITALS: BP 166/80
[2017-01-23] MEDS: cloNIDine HCL 0.1 MG TAB PO PRN (09:14)
[2017-01-23] MEDS ORDERED: LACTTAB8 PO (10:44)
[2017-01-23] MEDS ORDERED: AZIT500T2 PO (10:44)
[2017-01-23] MEDS ORDERED: AUGM875T3 PO (10:44)
[2017-01-23] MEDS: cefTRIAXone INJ 1,000 MG in SODIUM CHLORIDE 0.9% INJ 100 ML IV SCH (10:56)
[2017-01-23] MEDS: ACETAMINOPHEN 325 MG TAB PO PRN (11:39)
--- NOTE | 2017-01-23 13:39 | HHI.DS ---
Discharge Summary Admission Date Jan 21, 2017 at 13:27 Discharge Date: Jan 23, 2017 Admitting Diagnosis pneumonia, failed outpatient therapy (1) Community acquired pneumonia ICD Code: J18.9 - Pneumonia, unspecified organism Diagnosis: Principal (2) Abnormal computed tomography angiography (CTA) ICD Code: R93.8 - Abnormal findings on diagnostic imaging of other specified body structures Diagnosis: Secondary (3) Lung density on x-ray ICD Code: J98.4 - Other disorders of lung Diagnosis: Secondary Procedures none Brief History - From Admission 76-year-old male with a past medical history of dementia, HTN, GERD, CAD, HLD, COPD, DM, CVA, PVD, depression was sent to the ED by his PCP for failed OP treatment of PNA. Patient was treated with 7 days course of Levaquin without improvement. Patient come to the emergency department for further evaluation of his chest pain and shortness of breath ongoing for over a week at the advice of his primary care doctor. Patient has been on Levaquin for pneumonia for 5 days, but his symptoms are not getting any better. Denies any fevers, nausea, vomiting, abdominal pain, headache, loss or change in bowel or bladder, numbness or tingling anywhere, headaches, or anything making it worse. Patient describes pain as achy pain in left side of his chest without radiation. Symptoms improved with laying down flat. Denies anything making it worse. Patient has been using his nebulizer as well without improvement of symptoms. CBC/BMP: 01/22/1722 01/22/17521 Significant Findings Laboratory Tests Test 01/21/17 11:15 01/21/17 12:00 01/22/17 05:22 White Blood Count 12.1 TH/MM3 (4.0-11.0) 11.6 TH/MM3 (4.0-11.0) Eosinophils (%) (Auto) 4.9 % (0.0-4.0) 5.4 % (0.0-4.0) Neutrophils # (Auto) 8.0 TH/MM3 (1.8-7.7) Eosinophils # (Auto) 0.6 TH/MM3 (0-0.4) 0.6 TH/MM3 (0-0.4) Random Glucose 143 MG/DL (74-106) 140 MG/DL (74-106) Carbon Dioxide Level 34.7 MEQ/L (21.0-32.0) Estimat Glomerular Filtration Rate 78 ML/MIN (>89) 87 ML/MIN (>89) Troponin I LESS THAN 0.02 NG/ML Monocytes (%) (Auto) 8.1 % (0.0-8.0) Potassium Level 3.4 MEQ/L (3.5-5.1) Hospital Course Mr. Gao is a 76-year-old male. He was admitted secondary to pneumonia. This was in the presence of an outpatient treatment failure of Levaquin. He had been on Levaquin for one week with no improvement. In the hospital a history of Rocephin and azithromycin. This caused significant improvement by over the first night and through the second night he continues to improve. Medically stable for discharge to home today. He has oxygen at home at baseline and is nearing his baseline functional status. Pt Condition on Discharge: Stable Discharge Disposition: Discharge Home Discharge Time: <= 30 minutes Discharge Instructions DIET: Follow Instructions for: As Tolerated, No Restrictions Activities you can perform: Regular-No Restrictions Follow up Referrals: PCP Follow-up - 1 Week New Medications: Amoxicillin-Clavulanate (Augmentin) 875-125 Mg Tab 1 TAB PO BID for Infection, #14 TAB 0 Refills Azithromycin (Azithromycin) 500 Mg Tab 500 MG PO DAILY for Infection, #5 TAB 0 Refills Lactobacillus Acidophilus (Lactobacillus Acidophilus) 1 Billion Cell Tab 1 TAB PO TIDAC for Nutritional Supplement, #30 TAB 0 Refills Continued Medications: Atorvastatin (Atorvastatin) 80 Mg Tab 80 MG PO HS for Cholesterol Management, #30 TAB 0 Refills Donepezil (Donepezil) 10 Mg Tab 10 MG PO DAILY for Dementia, #30 TAB 0 Refills Insulin Glargine Inj (Lantus Inj) 1,000 Unit/10 Ml Vial 30 UNITS SQ BID for Blood Sugar Management, VIAL 0 Refills Losartan (Losartan) 100 Mg Tab 100 MG PO DAILY for Blood Pressure Management, #30 TAB 0 Refills Memantine (Memantine) 10 Mg Tab 10 MG PO BID for Alzheimer's Dementia, TAB 0 Refills Metformin (Metformin) 500 Mg Tab 500 MG PO BIDPC for Blood Sugar Management, #60 TAB 0 Refills With meals Omeprazole (Omeprazole) 20 Mg Tab 20 MG PO DAILY, #30 TAB 0 Refills Potassium Chloride ER (Potassium Chloride ER) 10 Meq Tab 10 MEQ PO DAILY for Electrolyte Replacement, #30 TAB 0 Refills Terrence Herndon MD Jan 23, 2017 13:39
== END 2017-01-23 12:36 | disposition home or self-care (01) | DRG 194 ==
LOC: NEPE 10:32 → NEDA 13:27 → N07A 15:17
PROVIDERS: ADMIT Hospitalist; ATTEND Hospitalist
DX: J18.9 Pneumonia, unspecified organism (principal); J44.0 Chronic obstructive pulmonary disease with (acute) lower respiratory infection; F03.90 Unspecified dementia, unspecified severity, without behavioral disturbance, psychotic disturbance, mood disturbance, and anxiety; E11.51 Type 2 diabetes mellitus with diabetic peripheral angiopathy without gangrene; Z79.4 Long term (current) use of insulin; Z79.84 Long term (current) use of oral hypoglycemic drugs; K21.9 Gastro-esophageal reflux disease without esophagitis; I25.10 Atherosclerotic heart disease of native coronary artery without angina pectoris; I10 Essential (primary) hypertension; E78.5 Hyperlipidemia, unspecified; F32.9 Major depressive disorder, single episode, unspecified; F17.210 Nicotine dependence, cigarettes, uncomplicated; J98.4 Other disorders of lung; Z86.73 Personal history of transient ischemic attack (TIA), and cerebral infarction without residual deficits
CPT/HCPCS: 71010; 71275; 80048; 82550; 82948; 83605; 83735; 83880; 84484; 85025; 85610; 85730; 86403; 87040; 87077; 87186; 87205; 93005; 94640; 94664; 96365; 96368; J0456; J0696; J1650; J7030; J7050; Q9967

== ENCOUNTER 2017-07-16 16:12 | Observation (INO) | payer MEDICARE, OTHER ==
[~2017-07-16] VITALS: Ht 170.2 cm; Wt 85.0 kg
[~2017-07-16 16:12] MED LIST changes: -ASPI1TAB69 PO; -ATOR1TAB18 PO; +ATOR80TA45 PO; +AUGM875T3 PO; +AZIT500T2 PO; +LACTTAB8 PO; -OMEP20TA PO; +OMEP20TA93 PO; -PENT400T19 PO
[2017-07-16 16:24] VITALS: BP 139/54; PULSE 59; RESP 16; O2SAT 93
[2017-07-16] MEDS ORDERED: SODIUM CHLORIDE 0.9% FLUSH 10 ML FLUSH IVF PRN (16:30)
--- NOTE | 2017-07-16 16:30 | PD ---
HPI Chief Complaint: General Weakness Time Seen by Provider: 16:27 Travel History International Travel<30 days: No Contact w/Intl Traveler<30days: No Traveled to known affect area: No History of Present Illness HPI 77-year-old male with history of CAD, remote CVA with left-sided deficit, COPD, A. fib, not currently on anticoagulation, diabetes that is poorly controlled, dementia, tobacco dependency, presents emergency department for evaluation. Patient had an appointment this afternoon at the [place], he told them of an incident this morning where he lost complete vision temporarily. He also reported that he had been having worsening shortness of breath over the last 2- 3 days. Patient is chronically short of breath due to COPD, oxygen dependence, and continuing to smoke cigarettes, but his shortness of breath and cough has become worse. Patient states after his doctor's appointment he went to lunch when he became clammy, pallor, and lost vision again. [facility] ambulance was called. EKG was done in route and patient had a wider complex arrhythmia. [facility] was contacted and patient was transported here. Patient denies any acute pain. He states he is not on any anticoagulation. Denies any nausea or vomiting. PFSH Past Medical History Asthma: Yes Blood Disorders: No Depression: Yes Cancer: No Cardiac Catheterization: Yes Cardiovascular Problems: Yes High Cholesterol: Yes Chest Pain: Yes COPD: Yes Cerebrovascular Accident: Yes Coronary Artery Disease: Yes Diabetes: Yes Diminished Hearing: No Gastrointestinal Disorders: No GERD: Yes Genitourinary: No Headaches: Yes (MIGRANES) Hypertension: Yes Immune Disorder: No Musculoskeletal: No Neurologic: Yes (DEMENTIA ) Psychiatric: Yes (DEMENTIA ) Reproductive: No Respiratory: Yes Migraines: Yes Myocardial Infarction: Yes Past Surgical History Abdominal Surgery: Yes (appendectomy ) AICD: No Appendectomy: Yes Ear Surgery: Yes Eye Surgery: Yes (CATARACT REMOVAL IN ONE EYE ) Joint Replacement: No Pacemaker: No Other Surgery: Yes Social History Alcohol Use: No Tobacco Use: Yes (1.5 PPD X 50 PLUS YRS/NOW 1PPD) Substance Use: No Allergies-Medications (Allergen,Severity, Reaction): Coded Allergies: No Known Allergies (Verified , 01/21/17) Reported Meds & Prescriptions Reported Meds & Active Scripts Active Augmentin (Amoxicillin-Clavulanate) 875-125 Mg Tab 1 Tab PO BID Lactobacillus Acidophilus 1 Billion Cell Tab 1 Tab PO TIDAC Azithromycin 500 Mg Tab 500 Mg PO DAILY Reported Donepezil 10 Mg Tab 10 Mg PO DAILY Memantine 10 Mg Tab 10 Mg PO BID Atorvastatin (Atorvastatin Calcium) 80 Mg Tab 80 Mg PO HS Metformin (Metformin HCl) 500 Mg Tab 500 Mg PO BIDPC With meals Lantus Inj (Insulin Glargine) 1,000 Unit/10 Ml Vial 30 Units SQ BID Losartan (Losartan Potassium) 100 Mg Tab 100 Mg PO DAILY Omeprazole 20 Mg Tab 20 Mg PO DAILY Potassium Chloride ER (Potassium Chloride) 10 Meq Tab 10 Meq PO DAILY Review of Systems Except as stated in HPI: all other systems reviewed are Neg Physical Exam Narrative GENERAL: Well-nourished male patient, in mild respiratory distress. SKIN: Focused skin assessment warm/dry. HEAD: Atraumatic. Normocephalic. Slight left-sided facial paralysis, chronic for the patient. EYES: Pupils equal and round. No scleral icterus. No injection or drainage. ENT: No nasal bleeding or discharge. Mucous membranes pink and moist. NECK: Trachea midline. No JVD. CARDIOVASCULAR: Regular rate and irregular rhythm. RESPIRATORY: Mild accessory muscle use, coarse throughout, diminished bases. Breath sounds equal bilaterally. GASTROINTESTINAL: Abdomen soft, non-tender, nondistended. Hepatic and splenic margins not palpable. MUSCULOSKELETAL: No obvious deformities. No clubbing. No cyanosis. No edema. NEUROLOGICAL: Awake and alert. No obvious cranial nerve deficits. Left upper and left lower extremity weakness, however patient is able to move all extremities. Sensation intact distal extremities. Normal speech. PSYCHIATRIC: Appropriate mood and affect; insight and judgment normal. Data Data Last Documented VS Vital Signs Date Time Temp Pulse Resp B/P (MAP) Pulse Ox O2 Delivery O2 Flow Rate FiO2 07/16/17 16:24 59 16 139/54 (82) 93 Orders Orders Complete Blood Count With Diff (07/16/17 16:27) Basic Metabolic Panel (Bmp) (07/16/17 16:27) B-Type Natriuretic Peptide (07/16/17 16:27) Act Partial Throm Time (Ptt) (07/16/17 16:27) Prothrombin Time / Inr (Pt) (07/16/17 16:27) Ckmb (Isoenzyme) Profile (07/16/17 16:27) Troponin I (07/16/17 16:27) Arterial Blood Gas (Abg) (07/16/17 16:27) Urinalysis - C+S If Indicated (07/16/17 16:27) Iv Access Insert/Monitor (07/16/17 16:27) Electrocardiogram (07/16/17 16:27) Ecg Monitoring (07/16/17 16:27) Oximetry (07/16/17 16:27) Oxygen Administration (07/16/17 16:27) Chest, Pa & Lat (07/16/17 16:27) Sodium Chloride 0.9% Flush (Ns Flush) (07/16/17 16:30) Ct Brain W/O Iv Contrast(Rout) (07/16/17 ) Labs Laboratory Tests Test 07/16/17 16:20 White Blood Count 9.7 TH/MM3 Red Blood Count 4.53 MIL/MM3 Hemoglobin 14.1 GM/DL Hematocrit 41.9 % Mean Corpuscular Volume 92.5 FL Mean Corpuscular Hemoglobin 31.2 PG Mean Corpuscular Hemoglobin Concent 33.7 % Red Cell Distribution Width 14.4 % Platelet Count 152 TH/MM3 Mean Platelet Volume 10.5 FL Neutrophils (%) (Auto) 60.0 % Lymphocytes (%) (Auto) 27.7 % Monocytes (%) (Auto) 7.6 % Eosinophils (%) (Auto) 4.0 % Basophils (%) (Auto) 0.7 % Neutrophils # (Auto) 5.8 TH/MM3 Lymphocytes # (Auto) 2.7 TH/MM3 Monocytes # (Auto) 0.7 TH/MM3 Eosinophils # (Auto) 0.4 TH/MM3 Basophils # (Auto) 0.1 TH/MM3 CBC Comment DIFF FINAL Differential Comment Prothrombin Time 10.6 SEC Prothromb Time International Ratio 1.0 RATIO Activated Partial Thromboplast Time 26.5 SEC Blood Urea Nitrogen 15 MG/DL Creatinine 1.14 MG/DL Random Glucose 259 MG/DL Calcium Level 8.4 MG/DL Sodium Level 142 MEQ/L Potassium Level 3.6 MEQ/L Chloride Level 104 MEQ/L Carbon Dioxide Level 30.7 MEQ/L Anion Gap 7 MEQ/L Estimat Glomerular Filtration Rate 62 ML/MIN Total Creatine Kinase 59 U/L Troponin I LESS THAN 0.02 NG/ML B-Type Natriuretic Peptide 35 PG/ML MDM Medical Decision Making Medical Screen Exam Complete: Yes Emergency Medical Condition: Yes Medical Record Reviewed: Yes Differential Diagnosis tia vs cva vs electrolyte abnormality vs amaurosis fug[place] vs diabetic retinopathy Narrative Course 77-year-old male presents emergency department for evaluation. Patient appears mild distress initially however he is without his oxygen. 2 L nasal cannula is applied and patient seems to have an easier time breathing. He has absolutely no blindness at this time. This has completely resolved. EKG is reviewed by my attending and appears to be possible A. fib. Patient does state he has a history of A. fib but does not take any anticoagulation therapy. His blood glucose was 222 en route. Laboratory Tests Test 07/16/17 16:20 White Blood Count 9.7 TH/MM3 Red Blood Count 4.53 MIL/MM3 Hemoglobin 14.1 GM/DL Hematocrit 41.9 % Mean Corpuscular Volume 92.5 FL Mean Corpuscular Hemoglobin 31.2 PG Mean Corpuscular Hemoglobin Concent 33.7 % Red Cell Distribution Width 14.4 % Platelet Count 152 TH/MM3 Mean Platelet Volume 10.5 FL Neutrophils (%) (Auto) 60.0 % Lymphocytes (%) (Auto) 27.7 % Monocytes (%) (Auto) 7.6 % Eosinophils (%) (Auto) 4.0 % Basophils (%) (Auto) 0.7 % Neutrophils # (Auto) 5.8 TH/MM3 Lymphocytes # (Auto) 2.7 TH/MM3 Monocytes # (Auto) 0.7 TH/MM3 Eosinophils # (Auto) 0.4 TH/MM3 Basophils # (Auto) 0.1 TH/MM3 CBC Comment DIFF FINAL Differential Comment Prothrombin Time 10.6 SEC Prothromb Time International Ratio 1.0 RATIO Activated Partial Thromboplast Time 26.5 SEC Blood Urea Nitrogen 15 MG/DL Creatinine 1.14 MG/DL Random Glucose 259 MG/DL Calcium Level 8.4 MG/DL Sodium Level 142 MEQ/L Potassium Level 3.6 MEQ/L Chloride Level 104 MEQ/L Carbon Dioxide Level 30.7 MEQ/L Anion Gap 7 MEQ/L Estimat Glomerular Filtration Rate 62 ML/MIN Total Creatine Kinase 59 U/L Troponin I LESS THAN 0.02 NG/ML B-Type Natriuretic Peptide 35 PG/ML Last Impressions Chest X-Ray 07/16/17 1627 Signed Impressions: Service Date/Time: June 17:02 - CONCLUSION: No acute disease. Agapito Muniz MD Head CT 07/16/17 0000 Signed Impressions: Service Date/Time: June 17:41 - CONCLUSION: 1. Stable evaluation of the brain without evidence of acute process. 2. Central atrophy with chronic white matter changes. 3. No evidence of acute infarct, hemorrhage , mass or edema. Agapito Muniz MD Findings are discussed with the patient and his . Patient will be admitted observation for further evaluation. They are in agreement with this plan of care. Diagnosis Primary Impression: Vision loss, bilateral Additional Impressions: Afib Qualified Codes: I48.2 - Chronic atrial fibrillation COPD (chronic obstructive pulmonary disease) Qualified Codes: J44.9 - Chronic obstructive pulmonary disease, unspecified DM (diabetes mellitus) Admitting Information Admitting Physician Requests: Observation Condition: Stable Meg Coleman Jul 16, 2017 16:30
[2017-07-16 17:11] LABS: AUTOMATED NEUTROPHIL # 5.8 TH/MM3 (1.8-7.7); BASOPHIL # 0.1 TH/MM3 (0-0.2); BASOPHIL % 0.7 % (0.0-2.0); EOSINOPHIL # 0.4 TH/MM3 (0-0.4); HEMATOCRIT 41.9 % (39.0-51.0); HEMOGLOBIN 14.1 GM/DL (13.0-17.0); LYMPH % 27.7 % (9.0-44.0); LYMPHOCYTE # 2.7 TH/MM3 (1.0-4.8); MEAN CELL VOLUME 92.5 FL (80.0-100.0); MEAN CORPUSCULAR HEMOGLOBIN 31.2 PG (27.0-34.0); MEAN CORPUSCULAR HGB CONC 33.7 % (32.0-36.0); MEAN PLATELET VOLUME 10.5 FL (7.0-11.0); MONO % 7.6 % (0.0-8.0); MONOCYTE # 0.7 TH/MM3 (0-0.9); PLATELET COUNT 152 TH/MM3 (150-450); RED BLOOD COUNT 4.53 MIL/MM3 (4.50-5.90); RED CELL DISTRIBUTION WIDTH 14.4 % (11.6-17.2); WHITE BLOOD COUNT 9.7 TH/MM3 (4.0-11.0)
--- NOTE | 2017-07-16 17:23 | RADRPT ---
EXAM DATE/TIME: 07/16/2017 17:02 [facility] COMPARISON: CHEST PA & LAT, January 14, 2017, 15:33. INDICATIONS : Short of breath MEDICAL HISTORY : Varicocele. Hypertension. Chronic obstructive pulmonary disease. Diabetes mellitus type 2.Asthm a SURGICAL HISTORY : None. ENCOUNTER: Initial ACUITY: 1 day PAIN SCORE: 0/10 LOCATION: chest FINDINGS: PA and lateral views of the chest demonstrate the lungs to be symmetrically aerated without evidence of mass, infiltrate or effusion. The cardiomediastinal contours are unremarkable. Osseous structure s are intact. CONCLUSION: No acute disease. Agapito Muniz MD on July 16, 2017 at 17:21 Board Certified Radiologist. This report was verified electronically.
[2017-07-16 17:35] LABS: PROTHROMBIN TIME - PATIENT 10.6 SEC (9.8-11.6)
[2017-07-16 17:42] LABS: BICARBONATE 30.7 MEQ/L (21.0-32.0); BLOOD UREA NITROGEN 15 MG/DL (7-18); CALCIUM 8.4 MG/DL (8.5-10.1); CHLORIDE 104 MEQ/L (98-107); CREATININE 1.14 MG/DL (0.60-1.30); GLOMERULAR FILTRATION RATE 62 ML/MIN (>89); GLUCOSE,RANDOM 259 MG/DL (74-106); SODIUM (NA) 142 MEQ/L (136-145); TROPONIN I LESS THAN 0.02 NG/ML (0.02-0.05)
--- NOTE | 2017-07-16 17:54 | RADRPT ---
EXAM DATE/TIME: 07/16/2017 17:41 [facility] COMPARISON: CT BRAIN W/O CONTRAST, July 28, 2016, 17:40. INDICATIONS : Patient complains of dizziness. RADIATION DOSE: CTDIvol (mGy) MEDICAL HISTORY : Cardiovascular disease. Hypertension. Chronic obstructive pulmonary disease.dementia SURGICAL HISTORY : None. ENCOUNTER: Initial ACUITY: 1 day PAIN SCALE: 0/10 LOCATION: cranial TECHNIQUE: Multiple contiguous axial images were obtained of the head. Using automated exposure control and adj ustment of the mA and/or kV according to patient size, radiation dose was kept as low as reasonably a chievable to obtain optimal diagnostic quality images. DICOM format image data is available electro nically for review and comparison. FINDINGS: CEREBRUM: The ventricles are moderately enlarged. No evidence of midline shift, mass lesion, hemorrhage or acu te infarction. Volume loss and diffuse hypodensity is seen throughout the cerebral white matter. No extra-axial fluid collections are seen. POSTERIOR FOSSA: The cerebellum and brainstem are intact. The 4th ventricle is midline. The cerebellopontine angle i s unremarkable. EXTRACRANIAL: The visualized portion of the orbits is intact. SKULL: The calvaria is intact. No evidence of skull fracture. CONCLUSION: 1. Stable evaluation of the brain without evidence of acute process. 2. Central atrophy with chronic white matter changes. 3. No evidence of acute infarct, hemorrhage, mass or edema. Agapito Muniz MD on July 16, 2017 at 17:50 Board Certified Radiologist. This report was verified electronically.
[2017-07-16] MEDS ORDERED: EMPA1TAB PO (18:36)
[2017-07-16] MEDS ORDERED: VENTAER INH (18:36)
[2017-07-16 18:59] LABS: BILIRUBIN, URINE NEG (NEG); BLOOD, URINE NEG (NEG); GLUCOSE,URINE 1000 mg/dL (NEG); KETONE, URINE NEG (NEG); NITRITE,URINE NEG (NEG); PH, URINE 5.5 (5.0-8.5); URINE COLOR YELLOW (YELLW/STRAW); URINE LEUKOCYTE ESTERASE NEG (NEG)
[2017-07-16] MEDS ORDERED: KETOROLAC TROMETHAMINE 30 MG/ML (IVP) VIAL IV PUSH ONE (19:00)
[2017-07-16 19:10] VITALS: BP 181/80; PULSE 62; RESP 18; O2SAT 96
[2017-07-16] MEDS ORDERED: GADODIAMIDE PF 287 MG/ML 20 ML VIAL (for RAD MRI) IVCONTRAST ONE (19:13)
[2017-07-16] MEDS: SODIUM CHLOR 0.9% 1000 ML INJ 1,000 ML IV SCH (19:26)
--- NOTE | 2017-07-16 19:29 | HHI.HP ---
HPI Service [facility] Primary Care Physician Chalo Baird MD Admission Diagnosis Transient bilateral vision loss; r/o TIA Diagnoses: (1) Vision loss, bilateral Diagnosis: Principal (2) COPD (chronic obstructive pulmonary disease) Diagnosis: Principal (3) HTN (hypertension) Diagnosis: Principal (4) Dementia Diagnosis: Principal (5) DM (diabetes mellitus) Diagnosis: Principal (6) Tobacco abuse Diagnosis: Principal Travel History International Travel<30 Days: No Contact w/Intl Traveler <30 Da: No Traveled to Known Affected Are: No History of Present Illness This is a 77-year-old male with a PMH of Depression, HTN, Hyperlipidemia, COPD, O2 Dependent, A. fib, CAD, DM, Dementia and Tobacco Abuse who presented to the ER w/ complaints of transient vision loss. States symptoms occurred earlier this morning, [facility] and instructed to come to the ER for further evaluation, however patient states he went home first to have dinner, symptoms recurred again at which time called EMS. Denies slurred speech, facial droop or weakness. While in ER, pt w/ possible episode of A-fib, not on anticoagulation at home. Denies chest pain or SOB. Does note some occasional cough and wheezing, non-productive, no fever/chills, continues to smoke. On arrival, BP 139/54, HR 59, O2 sat 93% on 2L NC, Afebrile. CBC unremarkable. Chemistry essentially unremarkable except for BS 259. Troponin negative. INR 1.0. UA negative. CXR with no acute findings. CT Head stable, no evidence of acute process. Review of Systems Except as stated in HPI: all other systems reviewed are Neg ROS: 14 point review of systems otherwise negative. Past Family Social History Past Medical History PMH: Depression, HTN, Hyperlipidemia, COPD, O2 Dependent, A. fib, CAD, DM, Dementia and Tobacco Abuse Past Surgical History PAST SURGICAL HISTORY: Appendectomy, Cataract Removal Allergies: Coded Allergies: No Known Allergies (Verified Allergy, Unknown, 07/16/17) Family History PAST FAMILY HISTORY: Reviewed. No h/o DM or CAD Social History PAST SOCIAL HISTORY: Negative for alcohol or drugs. Smokes 1ppd. Physical Exam Vital Signs Vital Signs Date Time Temp Pulse Resp B/P (MAP) Pulse Ox O2 Delivery O2 Flow Rate FiO2 07/16/17 19:10 62 18 181/80 (113) 96 Nasal Cannula 2.00 07/16/17 19:04 95 Nasal Cannula 2.00 07/16/17 19:04 Nasal Cannula 07/16/17 16:24 59 16 139/54 (82) 93 Physical Exam PE: GENERAL: Pleasant elderly white male in no acute distress, sitting up eating dinner. at bedside. HEENT: PERRLA, EOMI. No scleral icterus or conjunctival pallor. No lid lag, left facial droop chronic. CARDIOVASCULAR: Regular rate and rhythm. No obvious murmurs to auscultation. No chest tenderness to palpation. RESPIRATORY: No obvious rhonchi or wheezing. Clear to auscultation. Breath sounds equal bilaterally. GASTROINTESTINAL: Abdomen soft, non-tender, nondistended. BS normal. MUSCULOSKELETAL: Extremities without clubbing, cyanosis, or edema. No obvious deformities. NEUROLOGICAL: Awake, alert. No focal neurologic deficits. Moving both upper and lower extremities spontaneously. Laboratory Laboratory Tests Test 07/16/17 16:20 07/16/17 17:50 White Blood Count 9.7 Red Blood Count 4.53 Hemoglobin 14.1 Hematocrit 41.9 Mean Corpuscular Volume 92.5 Mean Corpuscular Hemoglobin 31.2 Mean Corpuscular Hemoglobin Concent 33.7 Red Cell Distribution Width 14.4 Platelet Count 152 Mean Platelet Volume 10.5 Neutrophils (%) (Auto) 60.0 Lymphocytes (%) (Auto) 27.7 Monocytes (%) (Auto) 7.6 Eosinophils (%) (Auto) 4.0 Basophils (%) (Auto) 0.7 Neutrophils # (Auto) 5.8 Lymphocytes # (Auto) 2.7 Monocytes # (Auto) 0.7 Eosinophils # (Auto) 0.4 Basophils # (Auto) 0.1 CBC Comment DIFF FINAL Differential Comment Prothrombin Time 10.6 Prothromb Time International Ratio 1.0 Activated Partial Thromboplast Time 26.5 Blood Urea Nitrogen 15 Creatinine 1.14 Random Glucose 259 Calcium Level 8.4 Sodium Level 142 Potassium Level 3.6 Chloride Level 104 Carbon Dioxide Level 30.7 Anion Gap 7 Estimat Glomerular Filtration Rate 62 Total Creatine Kinase 59 Troponin I LESS THAN 0.02 B-Type Natriuretic Peptide 35 Urine Color YELLOW Urine Turbidity CLEAR Urine pH 5.5 Urine Specific [place] 1.033 Urine Protein 30 Urine Glucose (UA) 1000 Urine Ketones NEG Urine Occult Blood NEG Urine Nitrite NEG Urine Bilirubin NEG Urine Urobilinogen LESS THAN 2.0 Urine Leukocyte Esterase NEG Urine RBC 1 Urine WBC LESS THAN 1 Microscopic Urinalysis Comment CULT NOT INDICATED Result Diagram: 07/16/17 16207/16/17 1620 Caprini VTE Risk Assessment Caprini VTE Risk Assessment: No/Low Risk (score <= 1) Caprini Risk Assessment Model Point Value = 1 Point Value = 2 Point Value = 3 Point Value = 5 Age 41-60 Minor surgery BMI > 25 kg/m2 Swollen legs Varicose veins or History of unexplained or recurrent spontaneous Oral contraceptives or hormone replacement Sepsis (< 1 month) Serious lung disease, including pneumonia (< 1 month) Abnormal pulmonary function Acute myocardial infarction Congestive heart failure (< 1 month) History of inflammatory bowel disease Medical patient at bed rest Age 61-74 Arthroscopic surgery Major open surgery (> 45 min) Laparoscopic surgery (> 45 min) Malignancy Confined to bed (> 72 hours) Immobilizing plaster cast Central venous access Age >= 75 History of VTE Family history of VTE Factor V Leiden Prothrombin [id number] Lupus anticoagulant Anticardiolipin antibodies Elevated serum homocysteine Heparin-induced thrombocytopenia Other congenital or acquired thrombophilia Stroke (< 1 month) Elective arthroplasty Hip, pelvis, or leg fracture Acute spinal cord injury (< 1 month) Prophylaxis Regimen Total Risk Factor Score Risk Level Prophylaxis Regimen 0-1 Low Early ambulation 2 Moderate Order ONE of the following: *Sequential Compression Device (SCD) *Heparin 5000 units SQ BID 3-4 Higher Order ONE of the following medications: *Heparin 5000 units SQ TID *Enoxaparin/Lovenox 40 mg SQ daily (WT < 150 kg, CrCl > 30 mL/min) *Enoxaparin/Lovenox 30 mg SQ daily (WT < 150 kg, CrCl > 10-29 mL/min) *Enoxaparin/Lovenox 30 mg SQ BID (WT < 150 kg, CrCl > 30 mL/min) AND/OR *Sequential Compression Device (SCD) 5 or more Highest Order ONE of the following medications: *Heparin 5000 units SQ TID (Preferred with Epidurals) *Enoxaparin/Lovenox 40 mg SQ daily (WT < 150 kg, CrCl > 30 mL/min) *Enoxaparin/Lovenox 30 mg SQ daily (WT < 150 kg, CrCl > 10-29 mL/min) *Enoxaparin/Lovenox 30 mg SQ BID (WT < 150 kg, CrCl > 30 mL/min) AND *Sequential Compression Device (SCD) Assessment and Plan Problem List: (1) Vision loss, bilateral ICD Code: H54.3 - Unqualified visual loss, both eyes Status: Acute (2) COPD (chronic obstructive pulmonary disease) ICD Code: J44.9 - Chronic obstructive pulmonary disease, unspecified Status: Chronic (3) Dementia ICD Code: F03.90 - Unspecified dementia without behavioral disturbance Status: Chronic (4) HTN (hypertension) ICD Code: I10 - Essential (primary) hypertension Status: Chronic (5) DM (diabetes mellitus) ICD Code: E11.9 - Type 2 diabetes mellitus without complications Status: Chronic (6) Tobacco abuse ICD Code: Z72.0 - Tobacco use Assessment and Plan A/P: 1. Transient Vision Loss: Intermittent, c/o complete vision loss bilaterally, resolved after few minutes w/ recurrent episode later today. In light of h/o A- fib, not on anticoagulation, concern for ischemia/stroke. CT Head w/ no acute findings, images reviewed by me. Will check MRI/MRA to eval for possible stroke. Check Echo to eval for thromboembolic event. 2. COPD: Chronic Respiratory Failure, DuoNeb prn, resume home Symbicort, O2 as needed, monitor O2 sat. 3. Dementia: Chronic. Resume home Donepezil, Memantine. Mental status at baseline. 4. HTN: Uncontrolled. BP 180's, will monitor, hold antihypertensives in light of possible CVA 5. DM: Sliding scale w/ Accu-Cheks. Hold Metformin, resume home Insulin. 6. Tobacco Abuse: Pt counselled. Ativan prn if needed. No NicoDerm to avoid vasoconstriction. 7. DVT Prophylaxis: Heparin sq 8. Social work for d/c planning as needed. 9. Case discussed w/ ER physician at length, labs/records/imaging reviewed by me. Problem Qualifiers (1) COPD (chronic obstructive pulmonary disease): Qualified Codes: J44.9 - Chronic obstructive pulmonary disease, unspecified Mazal,Hillary MD Jul 16, 2017 19:29
[2017-07-16] MEDS ORDERED: SENNOSIDES 8.6 MG TAB PO PRN (19:30)
[2017-07-16] MEDS ORDERED: ACETAMINOPHEN/HYDROcodone 325 MG/5 MG TAB PO PRN (19:30)
[2017-07-16] MEDS ORDERED: GLUCAGON 1 MG/ML VIAL OTHER PRN (19:30)
[2017-07-16] MEDS ORDERED: SODIUM CHLORIDE 0.9% FLUSH 10 ML FLUSH IV FLUSH PRN (19:30)
[2017-07-16] MEDS ORDERED: MAGNESIUM HYDROXIDE SUSP 30 ML CUP PO PRN (19:30)
[2017-07-16] MEDS ORDERED: ONDANSETRON HCL 4 MG/2 ML VIAL IVP PRN (19:30)
[2017-07-16] MEDS ORDERED: BISACODYL 10 MG SUPP RECTAL PRN (19:30)
[2017-07-16] MEDS ORDERED: MORPHINE SULFATE 2 MG/ML SYRINGE IV PUSH PRN (19:30)
[2017-07-16] MEDS ORDERED: LACTULOSE SYRUP 20 GM/30 ML CUP PO PRN (19:30)
[2017-07-16] MEDS ORDERED: ACETAMINOPHEN 325 MG TAB PO PRN (19:30)
[2017-07-16] MEDS ORDERED: DEXTROSE 50% IN WATER 50 ML VIAL(D50) IV PUSH PRN (19:30)
[2017-07-16 20:01] VITALS: BP 170/67; PULSE 60; RESP 18; O2SAT 98
[2017-07-16] MEDS ORDERED: RESP: ALBUTEROL 2.5 MG/IPRATROPIUM 0.5 MG NEB (PRN) NEB (20:30)
[2017-07-16] MEDS ORDERED: INSULIN GLARGINE 1,000 UNITS/10 ML VIAL SQ SCH (21:00)
[2017-07-16] MEDS: SODIUM CHLORIDE 0.9% FLUSH 10 ML FLUSH IV FLUSH SCH (21:00)
--- NOTE | 2017-07-16 21:17 | RADRPT ---
EXAM DATE/TIME: 07/16/2017 20:10 [facility] COMPARISON: MRI BRAIN W/O CONTRAST, July 12, 2015, 18:00. INDICATIONS : CVA. Loss of vision today. MEDICAL HISTORY : Dementia. Hypertension. Diabetes mellitus type 2. SURGICAL HISTORY : Appendectomy. Ankle fracture. ENCOUNTER: Initial ACUITY: 1 day PAIN SCORE: 0/10 LOCATION: Head. TECHNIQUE: Multiplanar, multisequence MRI of the brain was performed without contrast. FINDINGS: CEREBRUM: Moderate stable atrophy.. No evidence of midline shift, mass lesion, hemorrhage or acute infarction. No extraaxial fluid collections are seen. The pituitary gland and suprasellar cistern are normal i n configuration. WHITE MATTER: Moderate stable chronic appearing white matter signal changes. POSTERIOR FOSSA: The cerebellum and brainstem are intact. The 4th ventricle is midline. The cerebellopontine angle is unremarkable. The cerebellar tonsils are normal in position. DIFFUSION IMAGING: No focal areas of restricted diffusion are seen. No evidence of acute infarction. EXTRACRANIAL: The visualized portions of the orbits and paranasal sinuses are unremarkable. CONCLUSION: Stable brain appearance. No acute findings. Constantino Lomeli MD on July 16, 2017 at 21:14 Board Certified Radiologist. This report was verified electronically.
--- NOTE | 2017-07-16 21:21 | RADRPT ---
EXAM DATE/TIME: 07/16/2017 20:10 [facility] COMPARISON: MRA BRAIN W/O CONTRAST, July 12, 2015, 18:00. INDICATIONS : CVA. Loss of vision today. MEDICAL HISTORY : Diabetes mellitus type 2. Dementia. Hypertension. SURGICAL HISTORY : Appendectomy. Ankle. ENCOUNTER: Initial ACUITY: 1 day PAIN SCORE: 0/10 LOCATION: Head. Please note a normal MRA of the brain does not entirely exclude the possibility of a small aneurysm, nor the possibility of distal intracranial vessel disease. TECHNIQUE: 3D time of flight MRA was performed. Source images, multiplanar STS MIP, and 3D volume MIP reconstru ctions were reviewed. FINDINGS: There is excellent visualization of the major intracranial arteries out to the second-order branch ve ssels. There is no evidence for aneurysm, vessel truncation or stenosis, and no evidence for vascula r malformation. The left posterior cerebral artery arises in a fashion. CONCLUSION: No acute [place] vascular findings Constantino Lomeli MD on July 16, 2017 at 21:18 Board Certified Radiologist. This report was verified electronically.
[2017-07-16 21:32] VITALS: O2SAT 98
[2017-07-16 22:04] VITALS: BP 170/74; PULSE 67; RESP 18; TEMP 99.1; O2SAT 96
[2017-07-16] MEDS: ATORVASTATIN 80 MG TAB PO SCH (23:25)
[2017-07-16] MEDS: INSULIN ASPART SUPPLEMENTAL SCALE SQ SCH (23:25)
[2017-07-16] MEDS: MEMANTINE HCL 10 MG TAB PO SCH (23:25)
[2017-07-16] MEDS: DOCUSATE SODIUM 50 MG/SENNA 8.6 MG TAB PO SCH (23:25)
[2017-07-16] MEDS: INSULIN DETEMIR 100 UNITS/ML VIAL SQ SCH (23:26)
--- NOTE | 2017-07-16 23:51 | RADRPT ---
EXAM DATE/TIME: 07/16/2017 21:14 [facility] COMPARISON: No previous studies available for comparison. INDICATIONS : Stroke. Loss of vision. CONTRAST: 20 cc Omniscan (gadodiamide) IV MEDICAL HISTORY : Diabetes mellitus type 2. Dementia. Hypertension. SURGICAL HISTORY : Appendectomy. Ankle. ENCOUNTER: Initial ACUITY: 1 day PAIN SCORE: 0/10 LOCATION: Head. Percent stenosis is calculated using the diameter of the stenotic region over the diameter of the nor mal distal internal carotid artery. TECHNIQUE: Bolus infused MRA of the extracranial circulation was performed using a neurovascular coil. Post pro cessing was performed including rotating subvolume maximum intensity projections of each carotid mine ry, rotating full volume maximum intensity projections of both carotid arteries, sagittal and coronal sliding thin slab reformations of each carotid artery, and left oblique sliding thin slab reformatio n through the aortic arch to include the origin of the arch branch vessels. FINDINGS: AORTIC ARCH: There is a three vessel origin of the great vessels from the aorta. No evidence of ostial narrowing. RIGHT CAROTID: The common carotid artery is intact. The carotid bulb has a normal configuration without ulceration or narrowing. The internal carotid artery lumen is smooth without stenosis. The external carotid ar mac is intact. LEFT CAROTID: The common carotid artery is intact. The carotid bulb has a normal configuration without ulceration or narrowing. The internal carotid artery lumen is smooth without stenosis. The external carotid ar mac is intact. VERTEBRALS: The vertebral arteries have a symmetric diameter. No stenotic lesions are seen. CONCLUSION: 1. Patent carotid arteries and vertebral arteries. Klever Foreman Jr., MD on July 16, 2017 at 23:47 Board Certified Radiologist. This report was verified electronically.
[2017-07-17 00:38] VITALS: BP 162/92; PULSE 67; RESP 18; TEMP 97.4; O2SAT 96
[2017-07-17 03:46] VITALS: BP 148/67; PULSE 60; RESP 18; TEMP 98.1; O2SAT 96
[2017-07-17] MEDS: SODIUM CHLOR 0.9% 1000 ML INJ 1,000 ML IV SCH (06:30)
[2017-07-17 07:44] LABS: AUTOMATED NEUTROPHIL # 5.2 TH/MM3 (1.8-7.7); BASOPHIL # 0.1 TH/MM3 (0-0.2); BASOPHIL % 0.6 % (0.0-2.0); EOSINOPHIL # 0.5 TH/MM3 (0-0.4); EOSINOPHIL % 4.6 % (0.0-4.0); HEMATOCRIT 42.1 % (39.0-51.0); HEMOGLOBIN 14.2 GM/DL (13.0-17.0); LYMPH % 35.1 % (9.0-44.0); LYMPHOCYTE # 3.6 TH/MM3 (1.0-4.8); MEAN CELL VOLUME 92.5 FL (80.0-100.0); MEAN CORPUSCULAR HEMOGLOBIN 31.1 PG (27.0-34.0); MEAN CORPUSCULAR HGB CONC 33.7 % (32.0-36.0); MEAN PLATELET VOLUME 10.3 FL (7.0-11.0); MONO % 9.3 % (0.0-8.0); NEUT % 50.4 % (16.0-70.0); PLATELET COUNT 155 TH/MM3 (150-450); RED BLOOD COUNT 4.55 MIL/MM3 (4.50-5.90); WHITE BLOOD COUNT 10.2 TH/MM3 (4.0-11.0)
[2017-07-17] MEDS: INSULIN ASPART SUPPLEMENTAL SCALE SQ SCH ×4 (08:00→21:00)
[2017-07-17 08:12] VITALS: BP 185/73; PULSE 59; RESP 16; TEMP 97.8; O2SAT 95
[2017-07-17 08:19] LABS: ALKALINE PHOSPHATASE 90 U/L (45-117); ALT (GPT) 19 U/L (12-78); AST (GOT) 17 U/L (15-37); BICARBONATE 33.9 MEQ/L (21.0-32.0); BLOOD UREA NITROGEN 16 MG/DL (7-18); CALCIUM 8.3 MG/DL (8.5-10.1); CHLORIDE 109 MEQ/L (98-107); CREATININE 1.13 MG/DL (0.60-1.30); GLOMERULAR FILTRATION RATE 63 ML/MIN (>89); GLUCOSE,RANDOM 62 MG/DL (74-106); SODIUM (NA) 146 MEQ/L (136-145); TOTAL BILIRUBIN ADULT 0.6 MG/DL (0.2-1.0); TOTAL PROTEIN 6.6 GM/DL (6.4-8.2)
[2017-07-17] MEDS: DONEPEZIL HCL 5 MG TAB PO SCH (08:37)
[2017-07-17] MEDS: DOCUSATE SODIUM 50 MG/SENNA 8.6 MG TAB PO SCH ×2 (08:37→21:00)
[2017-07-17] MEDS: MEMANTINE HCL 10 MG TAB PO SCH ×2 (08:37→21:00)
[2017-07-17] MEDS: PANTOPRAZOLE SOD 20 MG DELAYED RELEASE TAB PO SCH (08:37)
[2017-07-17] MEDS: SODIUM CHLORIDE 0.9% FLUSH 10 ML FLUSH IV FLUSH SCH ×2 (08:38→21:00)
[2017-07-17] MEDS: INSULIN DETEMIR 100 UNITS/ML VIAL SQ SCH ×2 (09:00→21:00)
[2017-07-17] MEDS ORDERED: HEPARIN SODIUM - SQ 10,000 UNITS/ML VIAL SQ SCH (09:00)
--- NOTE | 2017-07-17 10:49 | HHI.PR ---
Subjective Remarks in no acute distress. vision is back to normal. no other complaints. Objective Vitals Vital Signs Date Time Temp Pulse Resp B/P (MAP) Pulse Ox O2 Delivery O2 Flow Rate FiO2 07/17/17 08:12 97.8 59 16 185/73 (110) 95 07/17/17 03:46 98.1 60 18 148/67 (94) 96 07/17/17 00:38 97.4 67 18 162/92 (115) 96 07/16/17 22:04 99.1 67 18 170/74 (106) 96 07/16/17 21:32 98 Nasal Cannula 2.00 07/16/17 20:50 07/16/17 20:01 60 18 170/67 (101) 98 Nasal Cannula 2.00 07/16/17 19:10 62 18 181/80 (113) 96 Nasal Cannula 2.00 07/16/17 19:04 95 Nasal Cannula 2.00 07/16/17 19:04 Nasal Cannula 07/16/17 16:24 59 16 139/54 (82) 93 I/O 07/16/17 07/16/17 07/16/17 07/17/17 07/17/17 07/17/17 07:00 15:00 23:00 07:00 15:00 23:00 Intake Total 120 ml Output Total 250 ml Balance 120 ml -250 ml Intake Oral 120 ml Output Urine Total 250 ml # Voids 3 Result Diagram: 07/17/17 0615 07/17/17 0615 Imaging Last Impressions Chest X-Ray 07/16/17 1627 Signed Impressions: Service Date/Time: June 17:02 - CONCLUSION: No acute disease. Agapito Muniz MD Neck Magnetic Resonance Angiography 07/16/17 0000 Signed Impressions: Service Date/Time: June 21:14 - CONCLUSION: 1. Patent carotid arteries and vertebral arteries. Klever Foreman Jr., MD Head Magnetic Resonance Angiography 07/16/17 0000 Signed Impressions: Service Date/Time: June 20:10 - CONCLUSION: No acute [place] [facility] vascular findings Constantino Lomeli MD Head CT 07/16/17 0000 Signed Impressions: Service Date/Time: June 17:41 - CONCLUSION: 1. Stable evaluation of the brain without evidence of acute process. 2. Central atrophy with chronic white matter changes. 3. No evidence of acute infarct, hemorrhage , mass or edema. Agapito Muniz MD Brain MRI 07/16/17 0000 Signed Impressions: Service Date/Time: June 20:10 - CONCLUSION: Stable brain appearance. No acute findings. Constantino Lomeli MD Objective Remarks GENERAL: This is a well-nourished, well-developed patient, in no apparent distress. CARDIOVASCULAR: Regular rate and regular rhythm without murmurs, gallops, or rubs. RESPIRATORY: Clear to auscultation. Breath sounds equal bilaterally. No wheezes , rales, or rhonchi. GASTROINTESTINAL: Abdomen soft, non-tender, nondistended. Normal, active bowel sounds MUSCULOSKELETAL: Extremities without clubbing, cyanosis, or edema. NEURO: Alert & Oriented x4 to person, place, time, situation. Moves all ext x4 Medications and IVs Inpatient Medications Acetaminophen (Tylenol) 650 mg Q6H PRN PO FEVER/PAIN SCALE 1 TO 2; Start at 19:30 Acetaminophen/ Hydrocodone Bitart ([place] 5-325 Mg) 1 tab Q4H PRN PO PAIN SCALE 3 TO 5; Start 07/16/17 at 19:30 Albuterol/ Ipratropium (Duoneb Neb) 1 ampule Q4HR NEB PRN NEB SOB/WHEEZING; Start 07/16/17 at 20:30 Atorvastatin Calcium (Lipitor) 80 mg HS PO Last administered on 07/16/17at 23:25 ; Start 07/16/17 at 21:00 Bisacodyl (Dulcolax Supp) 10 mg DAILY PRN RECTAL SEVERE CONSITIPATION; Start at 19:30 Dextrose (D50w (Vial) Inj) 50 ml UNSCH PRN IV PUSH HYPOGLYCEMIA-SEE COMMENTS; Start 07/16/17 at 19:30 Donepezil HCl (Aricept) 10 mg DAILY PO Last administered on 07/17/17at 08:37; Start 07/17/17 at 09:00 Glucagon (Glucagon Inj) 1 mg UNSCH PRN OTHER HYPOGLYCEMIA-SEE COMMENTS; Start 07/16/17 at 19:30 Heparin Sodium (Porcine) (Heparin Inj) 5,000 units Q12HR SQ ; Start 07/17/17 at 09:00 Insulin Aspart (NovoLOG SUPPLEMENTAL SCALE) 1 ACHS SLIDING SCALE SQ Last administered on 07/16/17at 23:25; Start 07/16/17 at 21:00 Insulin Detemir (Levemir Inj) 30 units BID SQ Last administered on 07/16/17at 23 :26; Start 07/16/17 at 23:00 Insulin Glargine (Lantus Inj) 30 units BID SQ ; Start 07/16/17 at 21:00; Stop at 22:48; Status DC Ketorolac Tromethamine (Toradol Inj) 15 mg ONCE ONCE IV PUSH Last administered on 07/16/17at 19:08; Start 07/16/17 at 19:00; Stop 07/16/17 at 19:01 ; Status DC Lactulose (Lactulose Liq) 30 ml DAILY PRN PO SEVERE CONSITIPATION; Start at 19:30 Magnesium Hydroxide (Milk Of Magnesia Liq) 30 ml Q12H PRN PO Mild constipation ; Start 07/16/17 at 19:30 Memantine (Namenda) 10 mg BID PO Last administered on 07/17/17at 08:37; Start at 21:00 Morphine Sulfate (Morphine Inj) 2 mg Q3H PRN IV PUSH Pain 6-10; Start 07/16/17 at 19:30 Ondansetron HCl (Zofran Inj) 4 mg Q6H PRN IVP NAUSEA OR VOMITING; Start at 19:30 Pantoprazole Sodium (Protonix) 20 mg DAILY PO Last administered on 07/17/17at 08 :37; Start 07/17/17 at 09:00 Senna/Docusate Sodium (Esmer-Colace) 1 tab BID PO Last administered on at 08:37; Start 07/16/17 at 21:00 Sennosides (Senokot) 17.2 mg Q12H PRN PO Moderate constipation; Start 07/16/17 at 19:30 Sodium Chloride (NS Flush) 2 ml BID IV FLUSH Last administered on 07/17/17at 08: 38; Start 07/16/17 at 21:00 A/P Problem List: (1) Vision loss, bilateral ICD Code: H54.3 - Unqualified visual loss, both eyes Status: Acute (2) COPD (chronic obstructive pulmonary disease) ICD Code: J44.9 - Chronic obstructive pulmonary disease, unspecified Status: Chronic (3) Dementia ICD Code: F03.90 - Unspecified dementia without behavioral disturbance Status: Chronic (4) HTN (hypertension) ICD Code: I10 - Essential (primary) hypertension Status: Chronic (5) DM (diabetes mellitus) ICD Code: E11.9 - Type 2 diabetes mellitus without complications Status: Chronic (6) Tobacco abuse ICD Code: Z72.0 - Tobacco use Assessment and Plan 1. Transient Vision Loss: Intermittent, c/o complete vision loss bilaterally, resolved after few minutes w/ recurrent episode later today. In light of h/o A- fib, not on anticoagulation, concern for ischemia. MRI brain with no acute abnormality- echo pending- will consult neurology. 2. COPD: Chronic Respiratory Failure, DuoNeb prn, resume home Symbicort, O2 as needed, monitor O2 sat. 3. Dementia: Chronic. Resumed home Donepezil, Memantine. Mental status at baseline. 4. HTN: Uncontrolled. BP 180's, will monitor, hold antihypertensives in light of possible CVA 5. DM: Sliding scale w/ Accu-Cheks. Hold Metformin, resumed home Insulin. 6. Tobacco Abuse: Pt counselled. Ativan prn if needed. No NicoDerm to avoid vasoconstriction. 7. DVT Prophylaxis: Heparin sq Discharge Planning awaiting neurology consult and echo. Problem Qualifiers (1) COPD (chronic obstructive pulmonary disease): Qualified Codes: J44.9 - Chronic obstructive pulmonary disease, unspecified Neto Willard MD Jul 17, 2017 10:49
[2017-07-17] MEDS: LOSARTAN 50 MG TAB PO SCH (11:50)
[2017-07-17 13:08] VITALS: BP 182/79; PULSE 72; RESP 16; TEMP 98.2; O2SAT 98
[2017-07-17 15:53] VITALS: BP 200/82; PULSE 60; RESP 16; TEMP 98; O2SAT 98
[2017-07-17] MEDS ORDERED: XARE20TA PO ×2 (15:57→15:58)
--- NOTE | 2017-07-17 15:59 | HHI.FF ---
Face to Face Verification Diagnosis: (1) Vision loss, bilateral (2) Afib (3) DM (diabetes mellitus) (4) COPD (chronic obstructive pulmonary disease) (5) Dementia (6) HTN (hypertension) Physical Therapy Order: Evaluate and Treat, Improve ambulation, Strength and gait training Home Health Nursing Order: Medical education Signs/symptoms of disease process Nursing assessment with vital signs I have seen patient Tyler Gao on 07/17/17. My clinical findings support the need for the requested home health care services because: Ltd mobility - disease progression Deconditioned w/ increased weakness Limited ability to care for self High risk of falls I certify that my clinical findings support that this patient is homebound because: Unsteady gait/balance Unsafe to leave home unassisted Unable to use public transportation Jacquelin Jones PA-C Jul 17, 2017 15:59
--- NOTE | 2017-07-17 16:00 | HHI.DCPOC ---
Discharge Care Plan Diagnosis: (1) Vision loss, bilateral (2) Afib (3) COPD (chronic obstructive pulmonary disease) (4) DM (diabetes mellitus) (5) Dementia (6) HTN (hypertension) Goals to Promote Your Health * To prevent worsening of your condition and complications * To maintain your health at the optimal level Directions to Meet Your Goals Take your medications as prescribed Follow your dietary instruction Follow activity as directed Keep your appointments as scheduled Take your immunizations and boosters as scheduled If your symptoms worsen call your PCP, if no PCP go to Urgent Care Center or Emergency Room Smoking is Dangerous to Your Health. Avoid second hand smoke Call the 24-hour hour crisis hotline for domestic abuse at Jacquelin Jones PA-C Jul 17, 2017 16:00
[2017-07-17] MEDS ORDERED: WALKER WHEELS/F1 MIS (16:01)
[2017-07-17] MEDS ORDERED: cloNIDine HCL 0.1 MG TAB PO ONE (16:15)
[2017-07-17] MEDS ORDERED: cloNIDine HCL 0.1 MG TAB PO PRN (16:15)
[2017-07-17] MEDS: RIVAROXABAN 20 MG TAB PO SCH (16:27)
[2017-07-17 17:32] VITALS: BP 165/65
--- NOTE | 2017-07-17 17:50 | ECHRPT ---
Indication: CVA/TIA CONCLUSIONS The left ventricular systolic function is normal with an estimated ejection fraction in the range of 55-60%. No regional wall motion abnormalities are present. Trace mitral valve regurgitation. Marked aortic valve sclerosis is present. Aortic valve mean gradient is 11 mmHg. There is trace tricuspid valve regurgitation. The estimated pulmonary arterial pressure is 32.3 mmHg. BP: / HR: 62 Rhythm: MEASUREMENTS (Male / Female) Normal Values Technical Quality:Fair 2D ECHO LV Diastolic Diameter PLAX 5.3 cm 4.2 - 5.9 / 3.9 - 5.3 cm LV Systolic Diameter PLAX 4.3 cm IVS Diastolic Thickness 1.3 cm 0.6 - 1.0 / 0.6 - 0.9 cm LVPW Diastolic Thickness 1.1 cm 0.6 - 1.0 / 0.6 - 0.9 cm LV Relative Wall Thickness 0.4 RV Internal Dim ED PLAX 3.2 cm LVOT Diameter 2.2 cm LA Systolic Diameter LX 3.7 cm 3.0 - 4.0 / 2.7 - 3.8 cm M-MODE Aortic Root Diameter MM 3.3 cm LA Systolic Diameter MM 3.8 cm LA Ao Ratio MM 1.2 AV Cusp Separation MM 1.3 cm DOPPLER AV Peak Velocity 238.0 cm/s AV Peak Gradient 22.7 mmHg AV Mean Gradient 11.0 mmHg AV Velocity Time Integral 53.2 cm LVOT Peak Velocity 113.0 cm/s LVOT Peak Gradient 5.1 mmHg LVOT Velocity Time Integral 25.4 cm LVOT Cardiac Index 2956.0 cm/minm AV Area Cont Eq vti 1.8 cm AV Area Cont Eq pk 1.8 cm MV Area PHT 2.9 cm Mitral E Point Velocity 84.4 cm/s Mitral A Point Velocity 110.0 cm/s Mitral E to A Ratio 0.8 LV E' Lateral Velocity 7.4 cm/s Mitral E to LV E' Lateral Ratio 11.4 LV E' Septal Velocity 8.1 cm/s Mitral E to LV E' Septal Ratio 10.4 TR Peak Velocity 236.0 cm/s TR Peak Gradient 22.3 mmHg Right Atrial Pressure 10.0 mmHg Pulmonary Artery Systolic Pressu 32.3 mmHg Right Ventricular Systolic Press 32.3 mmHg FINDINGS LEFT VENTRICLE The left ventricular systolic function is normal with an estimated ejection fraction in the range of 55-60%. No regional wall motion abnormalities are present. RIGHT VENTRICLE Normal right ventricular size and systolic function. LEFT ATRIUM The left atrial size is normal. RIGHT ATRIUM The right atrial size is normal. ATRIAL SEPTUM Normal atrial septal thickness without atrial level shunting by limited color doppler interrogation. AORTA The aortic root and proximal ascending aorta are normal in size on limited imaging. MITRAL VALVE Structurally normal mitral valve. Trace mitral valve regurgitation. AORTIC VALVE Marked aortic valve sclerosis is present. Aortic valve mean gradient is 11 mmHg. TRICUSPID VALVE Structurally normal tricuspid valve. There is trace tricuspid valve regurgitation. The estimated pulmonary arterial pressure is 32.3 mmHg. PULMONARY VALVE No pulmonary valve regurgitation or stenosis. VESSELS The inferior vena cava is normal in size. PERICARDIUM No pericardial effusion. Hung Oliveira MD (Electronically Signed) Final Date:17 July 2017 17:48
--- NOTE | 2017-07-17 19:41 | MB ---
cc: Jorden Cano MD DATE: 07/17/2017 HISTORY OF PRESENT ILLNESS: He is a 77-year-old, seen in neurological consultation in regard to visual loss. The patient suddenly was unable to see yesterday when he was in a restaurant with his . He had apparently a short duration and a few minutes later, he had problems again. On the second episode the tells me that he did seem to be confused as he did not recognize the . He does have a history of some dementia, diabetes mellitus. He is found to have atrial fibrillation. [facility] He is on memantine and donepezil for the dementia. He has a hypertensive disorder and COPD. NEUROLOGIC EXAMINATION: He was alert, pleasant and he is partially oriented. He knew his approximate age and the approximate date. He knew he was in the hospital. He is edentulous and his speech appeared to be adequate. Ocular movements and visual darnell were full. No facial weakness. He moved all 4 extremities and resisted well on the bedside motor exam. Reflexes were essentially absent throughout. Plantar responses are flexor. DIAGNOSTIC STUDIES: He has had a number of studies including MRI brain, MRA head and neck, which were unremarkable. ASSESSMENT AND PLAN: 1. 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 2. Atrial fibrillation. I would be inclined to treat him with anticoagulation. He is back to baseline and no other neurologic intervention at this point. I will request a lipid profile as well. Continue donepezil and memantine as his usual home medication for the dementia. Thank you for asking us to assist in his care. He could be back to neurological followup with Dr. Ashraf in a couple of weeks. MD DANIELLE Collier/DAYANNA , 07:00 PM , 07:40 PM
[2017-07-17 19:54] LABS: CHOLESTEROL/ HDL RATIO 2.33 RATIO; HDL CHOLESTEROL 36.4 MG/DL (40.0-60.0)
[2017-07-17] MEDS: ATORVASTATIN 80 MG TAB PO SCH (21:00)
[2017-07-18] MEDS: INSULIN ASPART SUPPLEMENTAL SCALE SQ SCH ×4 (08:00→21:59)
[2017-07-18 08:37] VITALS: BP 163/85; PULSE 62; RESP 18; TEMP 97.4; O2SAT 95
--- NOTE | 2017-07-18 08:55 | HHI.PR ---
Subjective Remarks in no acute distress. no vision loss or any other new complaints. Objective Vitals Vital Signs Date Time Temp Pulse Resp B/P (MAP) Pulse Ox O2 Delivery O2 Flow Rate FiO2 07/17/17 17:32 165/65 (98) 07/17/17 15:53 98.0 60 16 200/82 (121) 98 07/17/17 13:08 98.2 72 16 182/79 (113) 98 I/O 07/17/17 07/17/17 07/17/17 07/18/17 07/18/17 07/18/17 07:00 15:00 23:00 07:00 15:00 23:00 Intake Total 950 ml Output Total 250 ml 1000 ml Balance -250 ml 950 ml -1000 ml IV Total 950 ml Output Urine Total 250 ml 1000 ml # Voids 3 Result Diagram: 07/17/17 0615 07/17/17 0615 Imaging Last Impressions Chest X-Ray 07/16/17 1627 Signed Impressions: Service Date/Time: June 17:02 - CONCLUSION: No acute disease. Agapito Muniz MD Neck Magnetic Resonance Angiography 07/16/17 0000 Signed Impressions: Service Date/Time: June 21:14 - CONCLUSION: 1. Patent carotid arteries and vertebral arteries. Klever Foreman Jr., MD Head Magnetic Resonance Angiography 07/16/17 0000 Signed Impressions: Service Date/Time: June 20:10 - CONCLUSION: No acute [place] [facility] vascular findings Constantino Lomeli MD Head CT 07/16/17 0000 Signed Impressions: Service Date/Time: June 17:41 - CONCLUSION: 1. Stable evaluation of the brain without evidence of acute process. 2. Central atrophy with chronic white matter changes. 3. No evidence of acute infarct, hemorrhage , mass or edema. Agapito Muniz MD Brain MRI 07/16/17 0000 Signed Impressions: Service Date/Time: June 20:10 - CONCLUSION: Stable brain appearance. No acute findings. Constantino Lomeli MD Objective Remarks GENERAL: This is a well-nourished, well-developed patient, in no apparent distress. CARDIOVASCULAR: Regular rate and regular rhythm without murmurs, gallops, or rubs. RESPIRATORY: Clear to auscultation. Breath sounds equal bilaterally. No wheezes , rales, or rhonchi. GASTROINTESTINAL: Abdomen soft, non-tender, nondistended. Normal, active bowel sounds MUSCULOSKELETAL: Extremities without clubbing, cyanosis, or edema. NEURO: Alert & Oriented x4 to person, place, time, situation. Moves all ext x4 Medications and IVs Inpatient Medications Acetaminophen (Tylenol) 650 mg Q6H PRN PO FEVER/PAIN SCALE 1 TO 2; Start at 19:30 Acetaminophen/ Hydrocodone Bitart ([place] 5-325 Mg) 1 tab Q4H PRN PO PAIN SCALE 3 TO 5; Start 07/16/17 at 19:30 Albuterol/ Ipratropium (Duoneb Neb) 1 ampule Q4HR NEB PRN NEB SOB/WHEEZING; Start 07/16/17 at 20:30 Atorvastatin Calcium (Lipitor) 80 mg HS PO Last administered on 07/17/17at 21:00 ; Start 07/16/17 at 21:00 Bisacodyl (Dulcolax Supp) 10 mg DAILY PRN RECTAL SEVERE CONSITIPATION; Start at 19:30 Clonidine (Catapres) 0.1 mg Q6H PRN PO SBP> OR = 180, DBP> OR = 100; Start at 16:15 Dextrose (D50w (Vial) Inj) 50 ml UNSCH PRN IV PUSH HYPOGLYCEMIA-SEE COMMENTS; Start 07/16/17 at 19:30 Donepezil HCl (Aricept) 10 mg DAILY PO Last administered on 07/17/17at 08:37; Start 07/17/17 at 09:00 Glucagon (Glucagon Inj) 1 mg UNSCH PRN OTHER HYPOGLYCEMIA-SEE COMMENTS; Start 07/16/17 at 19:30 Heparin Sodium (Porcine) (Heparin Inj) 5,000 units Q12HR SQ Last administered on 07/17/17at 11:50; Start 07/17/17 at 09:00; Stop 07/17/17 at 15:56; Status DC Insulin Aspart (NovoLOG SUPPLEMENTAL SCALE) 1 ACHS SLIDING SCALE SQ Last administered on 07/17/17at 21:00; Start 07/16/17 at 21:00 Insulin Detemir (Levemir Inj) 30 units BID SQ Last administered on 07/17/17at 21 :00; Start 07/16/17 at 23:00 Insulin Glargine (Lantus Inj) 30 units BID SQ ; Start 07/16/17 at 21:00; Stop at 22:48; Status DC Ketorolac Tromethamine (Toradol Inj) 15 mg ONCE ONCE IV PUSH Last administered on 07/16/17at 19:08; Start 07/16/17 at 19:00; Stop 07/16/17 at 19:01 ; Status DC Lactulose (Lactulose Liq) 30 ml DAILY PRN PO SEVERE CONSITIPATION; Start at 19:30 Losartan Potassium (Cozaar) 100 mg DAILY PO Last administered on 07/17/17at 11: 50; Start 07/17/17 at 11:00 Magnesium Hydroxide (Milk Of Magnesia Liq) 30 ml Q12H PRN PO Mild constipation ; Start 07/16/17 at 19:30 Memantine (Namenda) 10 mg BID PO Last administered on 07/17/17at 21:00; Start at 21:00 Morphine Sulfate (Morphine Inj) 2 mg Q3H PRN IV PUSH Pain 6-10; Start 07/16/17 at 19:30 Ondansetron HCl (Zofran Inj) 4 mg Q6H PRN IVP NAUSEA OR VOMITING; Start at 19:30 Pantoprazole Sodium (Protonix) 20 mg DAILY PO Last administered on 07/17/17at 08 :37; Start 07/17/17 at 09:00 Rivaroxaban (Xarelto) 20 mg DAILY PO Last administered on 07/17/17at 16:27; Start 07/17/17 at 16:00 Senna/Docusate Sodium (Esmer-Colace) 1 tab BID PO Last administered on 21:00; Start 07/16/17 at 21:00 Sennosides (Senokot) 17.2 mg Q12H PRN PO Moderate constipation; Start 07/16/17 at 19:30 Sodium Chloride (NS Flush) 2 ml BID IV FLUSH Last administered on 07/17/17at 08: 38; Start 07/16/17 at 21:00 A/P Problem List: (1) Vision loss, bilateral ICD Code: H54.3 - Unqualified visual loss, both eyes Status: Acute (2) COPD (chronic obstructive pulmonary disease) ICD Code: J44.9 - Chronic obstructive pulmonary disease, unspecified Status: Chronic (3) Dementia ICD Code: F03.90 - Unspecified dementia without behavioral disturbance Status: Chronic (4) HTN (hypertension) ICD Code: I10 - Essential (primary) hypertension Status: Chronic (5) DM (diabetes mellitus) ICD Code: E11.9 - Type 2 diabetes mellitus without complications Status: Chronic (6) Tobacco abuse ICD Code: Z72.0 - Tobacco use Assessment and Plan 1. Transient Vision Loss:has resolved. MRI brain with no acute abnormality-MRA head and neck with no acute abnormality- echo with EF 55% and no regional wall motion abnormality. neurology consult appreciated; started on Xarelto. 2- atrial fibrillation- echo as noted above- HR controlled- started on Xarelto- f/u as outpatient. 3. COPD: resumed home Symbicort, O2 as needed, monitor O2 sat. 4. Dementia: Chronic. Resumed home Donepezil, Memantine. Mental status at baseline. 5. HTN: resumed losartan- 6. DM: Sliding scale w/ Accu-Cheks. Hold Metformin, resumed home Insulin. 7. Tobacco Abuse: Pt counselled. Ativan prn if needed. No NicoDerm to avoid vasoconstriction. Discharge Planning dc home later today if BP stable. f/u; pcp and neurology. rehab was offered but he declined- case management for [facility]. Problem Qualifiers (1) COPD (chronic obstructive pulmonary disease): Qualified Codes: J44.9 - Chronic obstructive pulmonary disease, unspecified Neto Willard MD Jul 18, 2017 08:55
[2017-07-18] MEDS: INSULIN DETEMIR 100 UNITS/ML VIAL SQ SCH ×2 (09:00→21:59)
--- NOTE | 2017-07-18 09:01 | HHI.FF ---
Face to Face Verification Diagnosis: (1) Afib Physical Therapy Order: Evaluate and Treat Home Health Nursing Order: Medical education Signs/symptoms of disease process Medication education-adverse effect Nursing assessment with vital signs I have seen patient Tyler Gao on 07/18/17. My clinical findings support the need for the requested home health care services because: Ltd mobility - disease progression I certify that my clinical findings support that this patient is homebound because: Unsteady gait/balance Neto Willard MD Jul 18, 2017 09:01
--- NOTE | 2017-07-18 09:16 | EKG ---
Date Performed: 07/16/2017 Time Performed: 16:42:59 PTAGE: 77 years EKG: SINUS BRADYCARDIA WITH MARKED SINUS ARRHYTHMIA MARKED LEFT AXIS DEVIATION RIGHT BUNDLE BRAN CH BLOCK MODERATE T-WAVE ABNORMALITY, CONSIDER INFERIOR ISCHEMIA ABNORMAL ECG PREVIOUS TRACING : 01/21/2017 11.25 DOCTOR: Mey Cohen Interpretating Date/Time 07/18/2017 09:11:42
[2017-07-18] MEDS: DOCUSATE SODIUM 50 MG/SENNA 8.6 MG TAB PO SCH ×2 (10:26→21:00)
[2017-07-18] MEDS: RIVAROXABAN 20 MG TAB PO SCH (10:26)
[2017-07-18] MEDS: LOSARTAN 50 MG TAB PO SCH (10:27)
[2017-07-18] MEDS: PANTOPRAZOLE SOD 20 MG DELAYED RELEASE TAB PO SCH (10:27)
[2017-07-18] MEDS: MEMANTINE HCL 10 MG TAB PO SCH ×2 (10:27→21:58)
[2017-07-18] MEDS: DONEPEZIL HCL 5 MG TAB PO SCH (10:27)
[2017-07-18] MEDS: SODIUM CHLORIDE 0.9% FLUSH 10 ML FLUSH IV FLUSH SCH ×2 (10:29→21:58)
--- NOTE | 2017-07-18 12:10 | HHI.PR ---
Review/Management Daily Summary 07/18 at bedside doing well, baseline spoke to dr Sudheer tang to marito/amirah xiong Subjective Subjective Comments No acute events reported No headache denies visual sx recurrence Active Medications Current Medications Medications (Trade) Dose Ordered Sig/Trini Route Start Time Stop Time Status Last Admin (D50w (Vial) Inj) 50 ml UNSCH PRN IV PUSH 07/16/17 19:30 (Glucagon Inj) 1 mg UNSCH PRN OTHER 07/16/17 19:30 (NovoLOG SUPPLEMENTAL SCALE) 1 ACHS SLIDING SCALE SQ 07/16/17 21:00 07/17/17 21:00 (NS Flush) 2 ml UNSCH PRN IV FLUSH 07/16/17 19:30 (NS Flush) 2 ml BID IV FLUSH 07/16/17 21:00 07/18/17 10:29 (Zofran Inj) 4 mg Q6H PRN IVP 07/16/17 19:30 (Tylenol) 650 mg Q6H PRN PO 07/16/17 19:30 ([place] 5-325 Mg) 1 tab Q4H PRN PO 07/16/17 19:30 (Morphine Inj) 2 mg Q3H PRN IV PUSH 07/16/17 19:30 (Esmer-Colace) 1 tab BID PO 07/16/17 21:00 07/18/17 10:26 (Milk Of Magnesia Liq) 30 ml Q12H PRN PO 07/16/17 19:30 (Senokot) 17.2 mg Q12H PRN PO 07/16/17 19:30 (Dulcolax Supp) 10 mg DAILY PRN RECTAL 07/16/17 19:30 (Lactulose Liq) 30 ml DAILY PRN PO 07/16/17 19:30 (Lipitor) 80 mg HS PO 07/16/17 21:00 07/17/17 21:00 (Aricept) 10 mg DAILY PO 07/17/17 09:00 07/18/17 10:27 (Namenda) 10 mg BID PO 07/16/17 21:00 07/18/17 10:27 (Protonix) 20 mg DAILY PO 07/17/17 09:00 07/18/17 10:27 (Duoneb Neb) 1 ampule Q4HR NEB PRN NEB 07/16/17 20:30 (Levemir Inj) 30 units BID SQ 07/16/17 23:00 07/17/17 21:00 (Cozaar) 100 mg DAILY PO 07/17/17 11:00 07/18/17 10:27 (Xarelto) 20 mg DAILY PO 07/17/17 16:00 07/18/17 10:26 (Catapres) 0.1 mg Q6H PRN PO 07/17/17 16:15 Allergies Allergies Coded Allergies No Known Allergies (Verified Allergy, Unknown, 07/16/17) Exam I&O / VS 07/18/17 07/18/17 07/19/17 15:00 23:00 07:00 Output Total 1000 ml Balance -1000 ml Output Urine Total 1000 ml Vital Signs Date Time Temp Pulse Resp B/P (MAP) Pulse Ox O2 Delivery O2 Flow Rate FiO2 07/18/17 08:37 97.4 62 18 163/85 (111) 95 07/17/17 17:32 165/65 (98) 07/17/17 15:53 98.0 60 16 200/82 (121) 98 07/17/17 13:08 98.2 72 16 182/79 (113) 98 Objective Radiology Results Last 48 hours Impressions Chest X-Ray 07/16/17 1627 Signed Impressions: Service Date/Time: June 17:02 - CONCLUSION: No acute disease. MD Jerome Randall Olimpio F. MD Jul 18, 2017 12:10
[2017-07-18 12:13] VITALS: BP 191/85; PULSE 56; RESP 20; TEMP 97.7; O2SAT 95
[2017-07-18] MEDS ORDERED: NIFEdipine 30 MG SUSTAINED RELEASE TAB PO ONE (13:45)
[2017-07-18] MEDS ORDERED: AMLO5 PO (14:04)
[2017-07-18 16:34] VITALS: BP 181/71; PULSE 57; RESP 16; TEMP 96.9; O2SAT 99
[2017-07-18 20:00] VITALS: BP 141/69; PULSE 63; RESP 20; TEMP 97.3; O2SAT 99
[2017-07-18] MEDS: ATORVASTATIN 80 MG TAB PO SCH (21:58)
[2017-07-19 05:13] VITALS: BP 135/65; PULSE 64; RESP 22; TEMP 98.1; O2SAT 96
[2017-07-19 07:30] VITALS: PULSE 53
[2017-07-19] MEDS ORDERED: NIFE1TAB85 PO (07:52)
[2017-07-19] MEDS: INSULIN ASPART SUPPLEMENTAL SCALE SQ SCH (08:00)
[2017-07-19 08:03] VITALS: O2SAT 99
--- NOTE | 2017-07-19 08:15 | HHI.DS ---
cc: Chalo Baird MD Discharge Summary Admission Date Jul 16, 2017 at 7:12 pm Discharge Date: Jul 19, 2017 Admitting Diagnosis Transient bilateral vision loss; r/o TIA (1) Vision loss, bilateral ICD Code: H54.3 - Unqualified visual loss, both eyes Diagnosis: Principal Status: Acute (2) COPD (chronic obstructive pulmonary disease) ICD Code: J44.9 - Chronic obstructive pulmonary disease, unspecified Diagnosis: Secondary Status: Chronic (3) HTN (hypertension) ICD Code: I10 - Essential (primary) hypertension Diagnosis: Principal Status: Chronic (4) DM (diabetes mellitus) ICD Code: E11.9 - Type 2 diabetes mellitus without complications Diagnosis: Secondary Status: Chronic (5) Tobacco abuse ICD Code: Z72.0 - Tobacco use Diagnosis: Secondary Status: Chronic Procedures none Brief History - From Admission This is a 77-year-old male with a PMH of Depression, HTN, Hyperlipidemia, COPD, O2 Dependent, A. fib, CAD, DM, Dementia and Tobacco Abuse who presented to the ER w/ complaints of transient vision loss. States symptoms occurred earlier this morning, [facility] come to [facility] for further evaluation, however patient states he went home first to have dinner, symptoms recurred again at which time called EMS. Denies slurred speech, facial droop or weakness. While in ER, pt w/ possible episode of A-fib, not on anticoagulation at home. Denies chest pain or SOB. Does note some occasional cough and wheezing, non-productive, no fever/chills, continues to smoke. On arrival, BP 139/54, HR 59, O2 sat 93% on 2L NC, Afebrile. CBC unremarkable. Chemistry essentially unremarkable except for BS 259. Troponin negative. INR 1.0. UA negative. CXR with no acute findings. CT Head stable, no evidence of acute process. CBC/BMP: 07/17/17 0615 07/17/17 0615 Significant Findings Laboratory Tests Test 07/16/17 16:20 07/16/17 17:50 07/17/17 06:15 Random Glucose 259 MG/DL (74-106) 62 MG/DL (74-106) Calcium Level 8.4 MG/DL (8.5-10.1) 8.3 MG/DL (8.5-10.1) Estimat Glomerular Filtration Rate 62 ML/MIN (>89) 63 ML/MIN (>89) Troponin I LESS THAN 0.02 NG/ML Urine Protein 30 mg/dL (NEG-TRACE) Urine Glucose (UA) 1000 mg/dL (NEG) Monocytes (%) (Auto) 9.3 % (0.0-8.0) Eosinophils (%) (Auto) 4.6 % (0.0-4.0) Monocytes # (Auto) 1.0 TH/MM3 (0-0.9) Eosinophils # (Auto) 0.5 TH/MM3 (0-0.4) Albumin 3.0 GM/DL (3.4-5.0) Sodium Level 146 MEQ/L (136-145) Chloride Level 109 MEQ/L (98-107) Carbon Dioxide Level 33.9 MEQ/L (21.0-32.0) Anion Gap 3 MEQ/L (5-15) Cholesterol Level 85 MG/DL (120-200) HDL Cholesterol 36.4 MG/DL (40.0-60.0) PE at Discharge GENERAL: This is a well-nourished, well-developed patient, in no apparent distress. CARDIOVASCULAR: Regular rate and regular rhythm without murmurs, gallops, or rubs. RESPIRATORY: Clear to auscultation. Breath sounds equal bilaterally. No wheezes , rales, or rhonchi. GASTROINTESTINAL: Abdomen soft, non-tender, nondistended. Normal, active bowel sounds MUSCULOSKELETAL: Extremities without clubbing, cyanosis, or edema. NEURO: Alert & Oriented x4 to person, place, time, situation. Moves all ext x4 Pt update on day of discharge Follow up for uncontrolled hypertension. The patient reports feeling better today. BP much better controlled with systolic blood pressure in the 130s-140s. He had a few episodes of diarrhea yesterday but none today. Denies any headache , visual changes, lightheadedness, dizziness, chest pain, or shortness of breath. He feels ready for discharge today. Hospital Course Transient vision loss: The patient presented with acute transient vision loss, now symptoms resolved. He had neurological work up with unremarkable Head CT, Brain MRI, Head/Neck MRA. Echocardiogram with EF 55%. Neurology consulted, recommended anticoagulation with patient's atrial fibrillation. The patient was started on xarelto. Neurology cleared for discharge. Atrial Fibrillation: rate controlled. Patient was not on any anticoagulation upon arrival. Given suspected TIA as above, patient was started on Xarelto. Stable. Accelerated Hypertension: Continued patient's losartan 100mg daily. The patient' s blood pressure remained uncontrolled with SBP 180-200s. He was also started on Nifedipine XL 30mg daily with improvement. SBP in 140s upon discharge. Diabetes Mellitus: chronic. Monitor accu-checks and cover with SSI. COPD: does not appear to be in exacerbation. Resumed home Symbicort, O2 as needed, monitor O2 sat, stable. Dementia: Chronic. Resumed home Donepezil, Memantine. Mental status at baseline. Pt Condition on Discharge: Stable Discharge Disposition: Disch w/ Home Health Serv Discharge Time: > 30 minutes Discharge Instructions DIET: Follow Instructions for: Heart Healthy Diet Activities you can perform: Regular-No Restrictions Follow up Referrals: Neurology - 2 Weeks with Tyler Ashraf MD PhD PCP Follow-up - 2-3 Days with Chalo Baird MD New Medications: Nifedipine ER 24 HR (Procardia XL) 30 Mg Tab 30 MG PO DAILY for Blood Pressure Management, #30 TAB 0 Refills Walker with Front Wheels (Walker with Front Wheels) 1 Mis Mis EA .XX DIRECTED, #1 0 Refills Rivaroxaban (Xarelto) 20 Mg Tab 20 MG PO DAILY for Prevent Blood Clot for 30 Days, #30 TAB Continued Medications: Albuterol 18 GM Inh (Ventolin Hfa 18 GM Inh) 90 Mcg/Act Aer 2 PUFF INH Q4-6H PRN for SHORTNESS OF BREATH, #1 INHALER 0 Refills Atorvastatin (Atorvastatin) 80 Mg Tab 80 MG PO HS for Cholesterol Management, #30 TAB 0 Refills Donepezil (Donepezil) 10 Mg Tab 10 MG PO DAILY for Dementia, #30 TAB 0 Refills Empagliflozin (Jardiance) 10 Mg Tab 12.5 MG PO DAILY for Blood Sugar Management, #30 TAB 0 Refills Insulin Glargine Inj (Lantus Inj) 1,000 Unit/10 Ml Vial 30 UNITS SQ BID for Blood Sugar Management, VIAL 0 Refills Lactobacillus Acidophilus (Lactobacillus Acidophilus) 1 Billion Cell Tab 1 TAB PO TIDAC for Nutritional Supplement, #30 TAB 0 Refills Losartan (Losartan) 100 Mg Tab 100 MG PO DAILY for Blood Pressure Management, #30 TAB 0 Refills Memantine (Memantine) 10 Mg Tab 10 MG PO BID for Alzheimer's Dementia, TAB 0 Refills Metformin (Metformin) 500 Mg Tab 500 MG PO BIDPC for Blood Sugar Management, #60 TAB 0 Refills With meals Omeprazole (Omeprazole) 20 Mg Tab 20 MG PO DAILY, #30 TAB 0 Refills Potassium Chloride ER (Potassium Chloride ER) 10 Meq Tab 10 MEQ PO DAILY for Electrolyte Replacement, #30 TAB 0 Refills Jacquelin Jones PA-C Jul 19, 2017 08:15 Neto Willard MD Jul 21, 2017 12:31
[2017-07-19 08:21] VITALS: BP 140/55; PULSE 68; RESP 18; TEMP 98.2; O2SAT 96
[2017-07-19] MEDS: DOCUSATE SODIUM 50 MG/SENNA 8.6 MG TAB PO SCH (09:00)
[2017-07-19] MEDS ORDERED: amLODIPine BESYLATE 5 MG TAB PO SCH (09:00)
[2017-07-19] MEDS ORDERED: NIFEdipine 30 MG SUSTAINED RELEASE TAB PO SCH (09:00)
[2017-07-19] MEDS: SODIUM CHLORIDE 0.9% FLUSH 10 ML FLUSH IV FLUSH SCH (09:04)
[2017-07-19] MEDS: DONEPEZIL HCL 5 MG TAB PO SCH (09:05)
[2017-07-19] MEDS: LOSARTAN 50 MG TAB PO SCH (09:05)
[2017-07-19] MEDS: PANTOPRAZOLE SOD 20 MG DELAYED RELEASE TAB PO SCH (09:05)
[2017-07-19] MEDS: MEMANTINE HCL 10 MG TAB PO SCH (09:05)
[2017-07-19] MEDS: RIVAROXABAN 20 MG TAB PO SCH (09:06)
[2017-07-19] MEDS: INSULIN DETEMIR 100 UNITS/ML VIAL SQ SCH (09:06)
[2017-07-19 11:31] VITALS: BP 143/58; PULSE 58; RESP 20; TEMP 98; O2SAT 96
== END 2017-07-19 12:20 | disposition home or self-care (01) ==
LOC: NEPE 16:12 → NEDA 19:12 → NEPHCDU 22:26
PROVIDERS: ADMIT Internal Medicine; ATTEND Internal Medicine
DX: H53.123 Transient visual loss, bilateral (principal); I48.2 Chronic atrial fibrillation; J44.9 Chronic obstructive pulmonary disease, unspecified; I10 Essential (primary) hypertension; E11.9 Type 2 diabetes mellitus without complications; E78.5 Hyperlipidemia, unspecified; F03.90 Unspecified dementia, unspecified severity, without behavioral disturbance, psychotic disturbance, mood disturbance, and anxiety; I25.10 Atherosclerotic heart disease of native coronary artery without angina pectoris; I25.2 Old myocardial infarction; K21.9 Gastro-esophageal reflux disease without esophagitis; F17.210 Nicotine dependence, cigarettes, uncomplicated; Z79.4 Long term (current) use of insulin; Z99.81 Dependence on supplemental oxygen; Z86.73 Personal history of transient ischemic attack (TIA), and cerebral infarction without residual deficits
CPT/HCPCS: 70450; 70544; 70548; 70551; 71046; 80048; 80053; 80061; 81001; 82550; 82948; 83880; 84484; 85025; 85610; 85730; 93005; 93306; 96361; 96372; 96374; 96376; 99285; A9579; G0378; J1644; J1815; J1885; J7030

== ENCOUNTER 2018-03-17 11:19 | Inpatient (IN) ==
[2018-03-17] MEDS ORDERED: Aspirin 325 MG Tablet PO ONE (11:41)
[2018-03-17] MEDS ORDERED: Atropine Inj 1 MG/10 ML Syringe IV.PUSH ONE (11:42)
--- NOTE | 2018-03-17 11:51 | ED ---
HPI General Chief Complaint: Chest Pain Stated Complaint: chest pain Time Seen by Provider: 03/17/18 11:34 Source: patient and family Mode of arrival: wheelchair Limitations: altered mental status (dementia) History of Present Illness HPI narrative: 77-year-old male who presents to the ED for evaluation of chest pain, shakiness and low heart rate. Patient apparently was today at the systems accountant office to get his toes checked out. Per patient he was supposed to get his toenails cut by the systems accountant. He has a history of diabetes, high blood pressure and A. fib. Per patient he takes a blood thinner. Most of the history is obtained from the family as patient himself has a chronic history of dementia. Patient himself states that he had a episode of chest pain but no anymore. When asked what the chest pain feels like he states that he feels like a pressure. Per patient he currently has no pain. When asked the patient has any history of heart disease he states that he does and when asked what does he mean by this he states that "my has brought in by her multiple times ". Patient states compliance with his medications. Family and patient cannot really give us any information about the medications that the patient takes. Per medical records he does take Xarelto and possibly Procardia. Patient states that he follows with a dry cleaner apprentice and when asked the family states that he might be Dr Allred. Related Data Home Medications Medication Instructions Recorded Confirmed rivaroxaban [Xarelto] 10 mg PO DAILY 03/17/18 03/17/18 Allergies Allergy/AdvReac Type Severity Reaction Status Date / Time No Known Allergies Allergy Verified 03/17/18 11:37 Review of Systems ROS: all other systems reviewed are negative [facility] Medical History Medical History A-fib (Acute) Dementia (Acute) Diabetes (Acute) Hypertension (Acute) Stroke (Acute) Surgical History Surgical History History of ankle surgery (Acute) Social History Social History Substance History: No History of Abuse Smoking Status: Current every day smoker Tobacco Type: Cigarettes How Often Do You Have a Drink Containing Alcohol: Never Recent Travel in [facility] [place] within the Last 8 Weeks: No Recent Out of Country Travel within the Last 8 Weeks: No Immunization History Tetanus Immunization: Unsure Exam Narrative Exam Narrative: GENERAL: Well appearing. SKIN: Focused skin assessment warm/dry. HEAD: Atraumatic. Normocephalic. EYES: Pupils equal and round. No scleral icterus. No injection or drainage. ENT: No nasal bleeding or discharge. Mucous membranes pink and moist. Tongue is midline. No Uvula deviation. NECK: Trachea midline. No JVD. CARDIOVASCULAR: Bradycardic rate and rhythm. No murmur appreciated. RESPIRATORY: No accessory muscle use. Clear to auscultation. Breath sounds equal bilaterally. GASTROINTESTINAL: Abdomen soft, non-tender, nondistended. Hepatic and splenic margins not palpable. MUSCULOSKELETAL: No obvious deformities. No clubbing. No cyanosis. No edema. Full range of motion of the upper and lower extremities bilaterally. 2+ pulses bilaterally. NEUROLOGICAL: Awake and alert. No obvious cranial nerve deficits. Motor grossly within normal limits. Normal speech. PSYCHIATRIC: Appropriate mood and affect; insight and judgment normal. Course Initial Documented Vital Signs Temperature 97.5 F L 03/17/18 11:24 Pulse Rate 32 L 03/17/18 11:24 Respiratory Rate 18 03/17/18 11:24 Blood Pressure 112/53 L 03/17/18 11:24 Pulse Oximetry 95 03/17/18 11:24 Last Documented Vital Signs Temperature 97.5 F L 03/17/18 11:24 Pulse Rate 62 03/17/18 13:37 Respiratory Rate 16 03/17/18 13:37 Blood Pressure 124/61 03/17/18 13:37 Pulse Oximetry 97 03/17/18 13:37 Medical Decision Making YULI Attestation YULI supervised visit: Yes Attestation: The history, exam, and medical decision-making in the associated mid-level provider note were completed with my assistance. I reviewed and agree with the findings presented. I attest that I had a [id number] encounter with the patient on the same day, and personally performed and documented my assessment and findings in the medical record. *My assessment and Findings: 77-year-old man with bradycardia, high degree AV block on EKG. History of bifascicular block. History of A. fib is somewhat unconfirmed, apparently noticed on one ED tracing when he was admitted for TIA symptoms. Responded well to atropine. Heart rate stabilized. Spoke with Dr. Sanchez, as well as Dr. Dominique. Reviewed EKGs. They will consult on patient. Will admit patient to medicine. [facility] Narrative Medical decision making narrative: 77-year-old male who presents to the ED for evaluation of chest pain and bradycardia. Patient was properly examined and was found to have signs and symptoms of unclear etiology. Labs and imaging were ordered. My attending Dr. Cruz immediately evaluated the patient with me. He order atropine for the patient. Labs and imaging showed no sign of acute disease alert and what appears to be bradycardia. My attending evaluated the EKG himself and believes that this is likely second-degree heart block. Patient appears to be somewhat symptomatic. My attending gave atropine to the patient with improvement of the bradycardia. My attending himself spoke with Dr. Sanchez as well as Dr. Dominique for the patient's cardiology group and recommend to the patient admitted to medicine and they will evaluate further. This was discussed with the family and patient who agree with plan. Patient was admitted to Dr. Mattson who agrees to admission to his service. Medical Screen Exam Complete: Yes Emergency Medical Condition: Yes Differential Diagnosis Differential Diagnosis: ACS versus bradycardia versus heart block versus chest pain versus typical chest pain versus pneumonia Medical Records Medical records reviewed: Yes I reviewed the patient's medical records. Lab Data Lab results reviewed: Yes I reviewed the patient's lab results. Result diagrams: 03/17/18 11:45 03/17/18 11:45 Lab Results 03/17/18 03/17/18 03/17/18 Range/Units 11:45 11:45 11:45 WBC 13.7 H (4.0-11.0) th/mm3 RBC 4.04 L (4.50-5.90) mil/mm3 Hgb 12.9 L (13.0-17.0) gm/dL Hct 38.1 L (39.0-51.0) % MCV 94.2 (80.0-100.0) fL MCH 32.0 (27.0-34.0) pg MCHC 33.9 (32.0-36.0) % RDW 14.1 (11.6-17.2) % Plt Count 198 (150-450) th/mm3 MPV 9.6 (7.0-11.0) fL Neut % (Auto) 66.9 (16.0-70.0) % Lymph % (Auto) 20.4 (9.0-44.0) % Elbert % (Auto) 8.3 H (0.0-8.0) % Eos % (Auto) 3.6 (0.0-4.0) % Baso % (Auto) 0.8 (0.0-2.0) % Neut # (Auto) 9.2 H (1.8-7.7) th/mm3 Lymph # (Auto) 2.8 (1.0-4.8) th/mm3 Elbert # (Auto) 1.1 H (0.0-0.9) th/mm3 Eos # (Auto) 0.5 H (0.0-0.4) th/mm3 Baso # (Auto) 0.1 (0.0-0.2) th/mm3 WBC Differential . Differential Comment Auto diff final PT 13.4 H (9.8-11.6) sec INR 1.3 Ratio APTT 36.6 H (23.4-31.7) sec Sodium 141 (136-145) meq/L Potassium 4.2 (3.5-5.1) meq/L Chloride 108 H (98-107) meq/L Carbon Dioxide 27.4 (21.0-32.0) meq/L Anion Gap 6 (5-15) meq/L BUN 23 H (7-18) mg/dL Creatinine 1.34 H (0.60-1.30) mg/dL Estimated GFR 52 L (>89) mL/min Random Glucose 149 H (74-106) mg/dL Calcium 8.6 (8.5-10.1) mg/dL Magnesium (1.5-2.5) mg/dL Total Bilirubin 0.4 (0.2-1.0) mg/dL AST 17 (15-37) U/L ALT 24 (12-78) U/L Alkaline Phosphatase 94 (45-117) U/L Total Creatine Kinase (39-308) U/L Troponin I Less than 0.02 L (0.02-0.05) ng/mL Total Protein 6.9 (6.4-8.2) g/dL Albumin 3.1 L (3.4-5.0) g/dL 03/17/18 Range/Units 11:45 WBC (4.0-11.0) th/mm3 RBC (4.50-5.90) mil/mm3 Hgb (13.0-17.0) gm/dL Hct (39.0-51.0) % MCV (80.0-100.0) fL MCH (27.0-34.0) pg MCHC (32.0-36.0) % RDW (11.6-17.2) % Plt Count (150-450) th/mm3 MPV (7.0-11.0) fL Neut % (Auto) (16.0-70.0) % Lymph % (Auto) (9.0-44.0) % Elbert % (Auto) (0.0-8.0) % Eos % (Auto) (0.0-4.0) % Baso % (Auto) (0.0-2.0) % Neut # (Auto) (1.8-7.7) th/mm3 Lymph # (Auto) (1.0-4.8) th/mm3 Elbert # (Auto) (0.0-0.9) th/mm3 Eos # (Auto) (0.0-0.4) th/mm3 Baso # (Auto) (0.0-0.2) th/mm3 WBC Differential Differential Comment PT (9.8-11.6) sec INR Ratio APTT (23.4-31.7) sec Sodium (136-145) meq/L Potassium (3.5-5.1) meq/L Chloride (98-107) meq/L Carbon Dioxide (21.0-32.0) meq/L Anion Gap (5-15) meq/L BUN (7-18) mg/dL Creatinine (0.60-1.30) mg/dL Estimated GFR (>89) mL/min Random Glucose (74-106) mg/dL Calcium (8.5-10.1) mg/dL Magnesium 1.9 (1.5-2.5) mg/dL Total Bilirubin (0.2-1.0) mg/dL AST (15-37) U/L ALT (12-78) U/L Alkaline Phosphatase (45-117) U/L Total Creatine Kinase 49 (39-308) U/L Troponin I (0.02-0.05) ng/mL Total Protein (6.4-8.2) g/dL Albumin (3.4-5.0) g/dL Imaging Data Attestation: I personally reviewed and interpreted this imaging study as follows : Radiologist's impression: Chest X-Ray 03/17/18 11:41 CONCLUSION: Negative examination. ECG Data Attestation: I personally reviewed and interpreted this ECG as follows: Interpretation: Irregular wide complex heart rhythm, appears to have points of regularity, and P waves are clearly visible in V3. The relationship between the P waves and the QRS complexes is not entirely clear. Certainly there are P waves no QRS complex following it. The NE interval was not steady. There does appear to be some relation at times however. This would suggest a high second- degree heart block. Severe right axis deviation. Inferior Q waves. QRS interval is wide 165. Discharge Plan Discharge Disposition Patient Disposition: ED Admit(ED Internal Use Only) Discharge Order Discharge Orders: ED Use Only Admit Order (Routine); Ordered 03/17/18 Ordered By: Santos Toney Discharge Details Diagnosis: AV heart block, Chest pain, rule out acute myocardial infarction Physicians Team ED Provider: Luis Cruz ED Midlevel Provider: Santos Toney Primary Care Provider: Chalo Baird Rxs /Orders / Referrals /Forms Prescriptions: No Action rivaroxaban [Xarelto] 2.5 mg Tablet 10 mg PO DAILY RF: 0 Discharge Instructions Patient Printed Instructions: Chest Pain (ED) Status ED Status: Admitted Patient
[2018-03-17 12:01] LABS: Baso # (Auto) 0.1 th/mm3 (0.0-0.2); Baso % (Auto) 0.8 % (0.0-2.0); Eos # (Auto) 0.5 th/mm3 (0.0-0.4); Eos % (Auto) 3.6 % (0.0-4.0); Hematocrit 38.1 % (39.0-51.0); Hemoglobin 12.9 gm/dL (13.0-17.0); Lymph # (Auto) 2.8 th/mm3 (1.0-4.8); Lymph % (Auto) 20.4 % (9.0-44.0); Mean Corpuscular HGB Conc 33.9 % (32.0-36.0); Mean Corpuscular Volume 94.2 fL (80.0-100.0); Mean Platelet Volume 9.6 fL (7.0-11.0); Mono # (Auto) 1.1 th/mm3 (0.0-0.9); Mono % (Auto) 8.3 % (0.0-8.0); Neut # (Auto) 9.2 th/mm3 (1.8-7.7); Neut % (Auto) 66.9 % (16.0-70.0); Platelet Count 198 th/mm3 (150-450); Red Blood Count 4.04 mil/mm3 (4.50-5.90); Red Cell Distribution Width 14.1 % (11.6-17.2); White Blood Count 13.7 th/mm3 (4.0-11.0)
[2018-03-17 12:09] LABS: Activated Partial Thrombo Time 36.6 sec (23.4-31.7); INR 1.3 Ratio; Prothrombin Time 13.4 sec (9.8-11.6)
[2018-03-17 12:24] LABS: Albumin 3.1 g/dL (3.4-5.0); Anion Gap 6 meq/L (5-15); Aspartate Aminotransferase 17 U/L (15-37); Blood Urea Nitrogen 23 mg/dL (7-18); Calcium 8.6 mg/dL (8.5-10.1); Carbon Dioxide 27.4 meq/L (21.0-32.0); Chloride 108 meq/L (98-107); Glomerular Filtration Rate 52 mL/min (>89); Glucose,Random 149 mg/dL (74-106); Potassium 4.2 meq/L (3.5-5.1); Sodium 141 meq/L (136-145)
[2018-03-17 12:26] LABS: Magnesium 1.9 mg/dL (1.5-2.5)
[2018-03-17 12:29] LABS: Alanine Aminotransferase 24 U/L (12-78); Alkaline Phosphatase 94 U/L (45-117); Total Protein 6.9 g/dL (6.4-8.2)
--- NOTE | 2018-03-17 12:46 | XR ---
EXAM DATE: 03/17/2018 12:41 PM EST AGE/SEX: 77 years / Male INDICATIONS: Chest pain. CLINICAL DATA: This is the patient's initial encounter. Patient reports that signs and symptoms have been present for 1 day and indicates a pain score of 0/10. MEDICAL/SURGICAL HISTORY: . Hypertension. Chronic obstructive pulmonary disease. Diabetes prosper itus type 2.Asthma None. COMPARISON: [facility] [place], CHEST PA & LAT, 07/16/2017. . FINDINGS: A single AP view of the chest demonstrates the lungs to be symmetrically aerated without evidence of mass, infiltrate or effusion. The cardiomediastinal contours are unremarkable. Osseous structures a re intact. CONCLUSION: Negative examination. Electronically signed by: Caio Almeida MD Board Certified Radiologist 03/17/2018 12:45 PM EST
--- NOTE | 2018-03-17 14:11 | P.HPIM ---
History of Present Illness Primary Care Physician: Chalo Baird MD Chief Complaint: bradycardia History of Present Illness: This is a 77-year-old male with history of stroke, atrial fibrillation on anticoagulation, dementia, hypertension diabetes mellitus presenting with bradycardia. 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 Patient allegedly complained of chest pain, sharp, nonradiating, mostly in the epigastric area, about 4/10, associated with dizziness, lightheadedness and nausea which lasted for 30 minutes and then resolved by itself. Presently, patient is chest pain-free. Patient currently smokes 1 pack a day. Inpatient Certification Inpatient Certification: I certify that the inpatient services were ordered in accordance with Medicare regulations governing the order. This includes certification that hospital inpatient services are reasonable and necessary and in the case of services not specified as inpatient-only under 42 CFR 419.22(n), that they are appropriately provided as inpatient services in accordance to with the 2-midnight benchmark under 43 CFR 412.3(e) Review of Systems Review of Systems: all other systems reviewed are negative FORMERLY [facility], 1928–1983 Medical History Medical History CAD (coronary artery disease) (Acute) Myocardial infarct (Acute) A-fib (Acute) Dementia (Acute) Diabetes (Acute) Hypertension (Acute) Stroke (Acute) Surgical History Surgical History History of appendectomy (Acute) History of ankle surgery (Acute) Social History Social History Substance History: No History of Abuse Smoking Status: Current every day smoker Tobacco Type: Cigarettes How Often Do You Have a Drink Containing Alcohol: Never Recent Travel in [facility] within the Last 8 Weeks: No Recent Out of Country Travel within the Last 8 Weeks: No Immunization History Tetanus Immunization: Unsure Medications and Allergies Allergies Allergy/AdvReac Type Severity Reaction Status Date / Time No Known Allergies Allergy Verified 03/17/18 11:37 Home Medications Medication Instructions Recorded Confirmed Type amlodipine 2.5 mg PO DAILY 03/17/18 03/17/18 History atorvastatin 20 mg PO QPM 03/17/18 03/17/18 History donepezil 10 mg PO DAILY 03/17/18 03/17/18 History fluticasone-vilanterol [Breo 1 inh INHALATION DAILY 03/17/18 03/17/18 History Ellipta] insulin glargine [Lantus U-100 30 unit SUBCUT DAILY 03/17/18 03/17/18 History Insulin] memantine 10 mg PO BID 03/17/18 03/17/18 History metformin 500 mg PO BID 03/17/18 03/17/18 History pentoxifylline 400 mg PO TID 03/17/18 03/17/18 History rivaroxaban [Xarelto] 20 mg PO DAILY 03/17/18 03/17/18 History Physical Exam Vital signs: Last Vital Signs Temp 97.5 F L 03/17/18 11:24 Pulse 62 03/17/18 13:37 Resp 16 03/17/18 13:37 BP 124/61 03/17/18 13:37 Pulse Ox 97 03/17/18 13:37 Intake & Output 03/15/18 03/16/18 03/17/18 03/18/18 06:59 06:59 06:59 06:59 Weight 98.43 kg Narrative: Not in distress, obese. PERRL, pink conjunctiva without injection, anicteric Nose without bleeding, airway patent, oropharynx clear Supple neck, trachea midline Borderline bradycardic, regular rhythm, no murmurs or Clear to auscultation and symmetric bilaterally, poor effort. Normal bowel sounds, soft, non-tender, nondistended, no guarding. Extremities without clubbing, cyanosis, or edema. AAO to place, person, year, no cranial nerve deficits, moves all 4 extremities, no focal neurologic deficits Results Labs CBC & Chem 7: 03/17/18 11:45 03/17/18 11:45 Imaging Impressions Chest X-Ray 03/17/18 11:41 CONCLUSION: Negative examination. Caprini VTE Risk Assessment Caprini VTE Risk Assessment: Moderate/High Risk (score >= 2) Caprini Risk Assessment Model: Point Value = 1 Point Value = 2 Point Value = 3 Point Value = 5 Age 41-60 Minor surgery BMI > 25 kg/m2 Swollen legs Varicose veins or History of unexplained or recurrent spontaneous Oral contraceptives or hormone replacement Sepsis (< 1 month) Serious lung disease, including pneumonia (< 1 month) Abnormal pulmonary function Acute myocardial infarction Congestive heart failure (< 1 month) History of inflammatory bowel disease Medical patient at bed rest Age 61-74 Arthroscopic surgery Major open surgery (> 45 min) Laparoscopic surgery (> 45 min) Malignancy Confined to bed (> 72 hours) Immobilizing plaster cast Central venous access Age >= 75 History of VTE Family history of VTE Factor V Leiden Prothrombin [id number] Lupus anticoagulant Anticardiolipin antibodies Elevated serum homocysteine Heparin-induced thrombocytopenia Other congenital or acquired thrombophilia Stroke (< 1 month) Elective arthroplasty Hip, pelvis, or leg fracture Acute spinal cord injury (< 1 month) Prophylaxis Regimen: Total Risk Factor Score Risk Level Prophylaxis Regimen 0-1 Low Early ambulation 2 Moderate Order ONE of the following: *Sequential Compression Device (SCD) *Heparin 5000 units SQ BID 3-4 Higher Order ONE of the following medications: *Heparin 5000 units SQ TID *Enoxaparin/Lovenox 40 mg SQ daily (WT < 150 kg, CrCl > 30 mL/min) *Enoxaparin/Lovenox 30 mg SQ daily (WT < 150 kg, CrCl > 10-29 mL/min) *Enoxaparin/Lovenox 30 mg SQ BID (WT < 150 kg, CrCl > 30 mL/min) AND/OR *Sequential Compression Device (SCD) 5 or more Highest Order ONE of the following medications: *Heparin 5000 units SQ TID (Preferred with Epidurals) *Enoxaparin/Lovenox 40 mg SQ daily (WT < 150 kg, CrCl > 30 mL/min) *Enoxaparin/Lovenox 30 mg SQ daily (WT < 150 kg, CrCl > 10-29 mL/min) *Enoxaparin/Lovenox 30 mg SQ BID (WT < 150 kg, CrCl > 30 mL/min) AND *Sequential Compression Device (SCD) Assessment and Plan Plan This is a 77-year coronary artery disease with previous heart attacks, no stenting or CABG done, atrial fibrillation, diabetes mellitus, dementia presenting with bradycardia. Second-degree AV block vs atrial fibrillation with SVR, ? Sick sinus rhythm- EKG atrial fibrillation with slow ventricular response versus second-degree AV block. Consult cardiology, will need EP studies and possibly pacemaker placement. Initial Troponin negative, check serial troponin and EKG, hold Xarelto in anticipation for surgery. Leukocytosis-could be from acute medical issues, no obvious source of infection , patient has a chronic cough, chest x-ray reviewed personally, unremarkable, check urinalysis. Recheck CBC tomorrow. Atrial fibrillation-as above Acute renal failure, likely from hypovolemia-creatinine 1.34, baseline is normal , will give normal saline cautiously. Check BMP tomorrow Diabetes mellitus type 2-hemoglobin A1c to estimate control, check sliding scale insulin, hold metformin, resume long-acting insulin per home dose of 30 units daily Hypertension-continue Norvasc, statin. Dementia-continue donepezil and memantine. History of COPD-not in exacerbation, continue Breo with Ventolin nebulization if needed. DVT prophylaxis: On Xarelto Discussed with daughter and .
[2018-03-17] MEDS ORDERED: Acetaminophen 325 MG Tablet PO PRN (14:29)
[2018-03-17] MEDS ORDERED: Dextrose 50% in Water 50 ML Vial IV.PUSH PRN (14:31)
[2018-03-17] MEDS: Sod Chloride 0.9% Inj 1,000 ML IV.CONT SCH (16:08)
[2018-03-17] MEDS ORDERED: Artificial Tears Opth Drops 15 ML Bottle EACH EYE PRN (16:23)
[2018-03-17] MEDS ORDERED: Melatonin 5 MG Tablet PO PRN (16:23)
--- NOTE | 2018-03-17 16:28 | ECG ---
Date Performed: 03/17/2018 Time Performed: 11:38:10 PTAGE: 77 years EKG: ATRIAL FIBRILLATION WITH SLOW VENTRICULAR RESPONSE MARKED RIGHT AXIS DEVIATION RIGHT BUNDLE BRANCH BLOCK INFERIOR MYOCARDIAL INFARCTION Compared to previous tracing, patient appears to be in a Sinus rhythm with episodes of most likely wenkebach block or mobitz type 1 AV block. Right bundle branch block co ntinues ABNORMAL ECG PREVIOUS TRACING : 07/16/2017 16.42 DOCTOR: Aleyda Hirsch Interpretating Date/Time 03/17/2018 16:27:28
[2018-03-17 16:40] LABS: Hemoglobin A1c 7.3 % (4.3-6.0)
--- NOTE | 2018-03-17 17:01 | MB ---
cc: Santos Dominique DO DATE: 03/17/2018 REASON FOR CONSULTATION: High degree AV block. HISTORY OF PRESENT ILLNESS: Tyler Gao is a 77-year-old male who sees my partner, Dr. 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 He was on his way to the skip loader and after getting out of the car and attempting to walk into the office, he started getting lightheaded. He had trouble with his vision and was somewhat nauseous. He had left-sided chest pain which was sharp and nonradiating in nature as well as epigastric pain. He worked his way into the office and sat down. They decided that they would cancel the skip loader visit and was sent to the emergency room. On arrival, he was noted to be in a high degree AV block, although the EKG is read as atrial fibrillation. He is currently chest pain free and hemodynamically stable. PAST MEDICAL HISTORY: 1. Coronary artery disease. 2. Atrial fibrillation. 3. TIA. 4. Dementia. 5. Diabetes. 6. Hypertension. PAST SURGICAL HISTORY: 1. Appendectomy. 2. Ankle surgery. ALLERGIES: NO KNOWN DRUG ALLERGIES. MEDICATIONS: 1. Xarelto 20 mg daily. 2. Metformin 500 mg b.i.d. 3. Memantine 10 mg b.i.d. 4. Donepezil 10 mg daily. 5. Lipitor 20 mg every night. 6. Pentoxifylline 400 mg t.i.d. 7. Breo Ellipta Left daily. 8. Lantus 30 units daily. 9. Norvasc 2.5 mg daily. FAMILY HISTORY: Denies premature coronary artery disease or sudden cardiac within the family. SOCIAL HISTORY: The patient is a current tobacco smoker. Denies alcohol or drug abuse. REVIEW OF SYSTEMS: Fourteen systems were reviewed including osteopathic. Pertinent positives and negatives above, otherwise negative. PHYSICAL EXAMINATION: VITAL SIGNS: Temperature 97.5, heart rate 50, blood pressure 112/53, respirations 18, pulse oximetry 95% on room air. GENERAL: The patient is an older appearing gentleman in no acute distress, alert and awake. HEENT: Extraocular muscles intact. Mucous membranes moist. NECK: Supple. No JVD at 45 degrees. No carotid bruits heard bilaterally. Carotid upstroke is brisk in nature. HEART: Relatively irregular rhythm, but bradycardic. No murmurs, gallops or rubs noted. LUNGS: Clear to auscultation bilaterally. No wheezes, rales or rhonchi. ABDOMEN: Soft, nontender, nondistended. No organomegaly noted. EXTREMITIES: Show no clubbing, cyanosis or edema. Femoral and distal pulses are intact bilaterally. NEUROLOGIC: No focal deficits. SKIN: Warm, dry and intact. OSTEOPATHIC: Mild lordosis. No kyphoscoliosis or paraspinal tender points. LABORATORY DATA: Hemoglobin 12.9, hematocrit 38.1, platelets 198. Potassium 4.2, BUN 23, creatinine 1.34. Troponin less than 0.02. DIAGNOSTIC DATA: Electrocardiogram (03/17/2018 at 11:38): High degree AV block, marked right axis deviation, right bundle branch block, possible age undetermined, inferior myocardial infarction. IMPRESSION: 1. High-degree atrioventricular block. 2. Lightheadedness secondary to high degree AV block. 3. History of atrial fibrillation, currently on Xarelto with a history of transient ischemic attack. 4. Dementia. 5. Tobacco abuse. RECOMMENDATIONS: 1. Mr. Gao appears to have high degree AV block and this is what most likely caused his lightheaded episodes as well as nausea, abdominal and chest pain. 2. For now, we will have him hold his Xarelto and he will be evaluated by Dr. Cohen for consideration of pacemaker placement. 3. He is currently hemodynamically stable with no symptoms as he is resting in bed. I do not believe that he needs a transvenous temporary pacemaker placed. 4. If at any time this changes, transcutaneous pacing or an emergent transvenous pacemaker will be placed. 5. Further recommendations per Dr. Cohen's consultation. Thank you for allowing me to see Tyler Gao. If there are any questions, please do not hesitate to call. Santos Doimnique, DO VGP/eliecer , 04:12 PM , 04:22 PM
[2018-03-17] MEDS: Insulin NovoLIN Regular Correctional Sugar Inj SQ SCH ×2 (17:34→22:15)
[2018-03-17] MEDS ORDERED: Pentoxifylline 400 MG Controlled Release Tablet PO SCH (18:00)
[2018-03-17] MEDS: Senna/Docusate Sodium 8.6/50 MG Tablet PO SCH (21:32)
[2018-03-18] MEDS ORDERED: Chlorhexidine Gluconate 2% 1 Pack (2 Cloths) TOPICAL PRN (04:00)
[2018-03-18] MEDS: Sod Chloride 0.9% Inj 1,000 ML IV.CONT SCH ×2 (04:08→18:37)
[2018-03-18] MEDS: Chlorhexidine Gluconate 2% 1 Pack (2 Cloths) TOPICAL SCH (04:09)
[2018-03-18 06:50] LABS: Baso # (Auto) 0.1 th/mm3 (0.0-0.2); Baso % (Auto) 0.9 % (0.0-2.0); Eos # (Auto) 0.5 th/mm3 (0.0-0.4); Eos % (Auto) 5.6 % (0.0-4.0); Hematocrit 36.5 % (39.0-51.0); Hemoglobin 12.4 gm/dL (13.0-17.0); Lymph # (Auto) 2.6 th/mm3 (1.0-4.8); Lymph % (Auto) 28.3 % (9.0-44.0); Mean Corpuscular Hemoglobin 31.8 pg (27.0-34.0); Mean Corpuscular Volume 93.7 fL (80.0-100.0); Mean Platelet Volume 10.1 fL (7.0-11.0); Mono # (Auto) 0.9 th/mm3 (0.0-0.9); Mono % (Auto) 9.4 % (0.0-8.0); Neut # (Auto) 5.2 th/mm3 (1.8-7.7); Neut % (Auto) 55.8 % (16.0-70.0); Platelet Count 185 th/mm3 (150-450); Red Blood Count 3.89 mil/mm3 (4.50-5.90); Red Cell Distribution Width 14.2 % (11.6-17.2); White Blood Count 9.3 th/mm3 (4.0-11.0)
[2018-03-18 07:07] LABS: Calcium 8.6 mg/dL (8.5-10.1); Carbon Dioxide 27.7 meq/L (21.0-32.0); Potassium 3.8 meq/L (3.5-5.1)
[2018-03-18] MEDS: Insulin NovoLIN Regular Correctional Sugar Inj SQ SCH ×4 (08:18→20:33)
[2018-03-18] MEDS: amLODIPine 5 MG Tablet PO SCH (08:19)
[2018-03-18] MEDS: Insulin Detemir Inj 1,000 UNIT/10 ML Vial SQ SCH (08:20)
[2018-03-18] MEDS: Senna/Docusate Sodium 8.6/50 MG Tablet PO SCH ×2 (08:20→20:34)
--- NOTE | 2018-03-18 15:04 | P.PNIM ---
Subjective Interval history: No chest pain. Some sob, lightheadedness. PPM today Physical Exam Vital signs: Last Vital Signs Temp 98.1 F 03/18/18 12:00 Pulse 61 03/18/18 12:00 Resp 33 H 03/18/18 12:00 BP 157/67 H 03/18/18 12:00 Pulse Ox 95 03/18/18 12:00 Intake & Output 03/16/18 03/17/18 03/18/18 03/19/18 06:59 06:59 06:59 06:59 Intake Total 1000 / 1000 Output Total 200 / 200 Balance 800 / 800 Weight 84.8 kg Narrative: Gen appearance: Obese male. Cardiovascular: Borderline bradycardic, regular rhythm, no murmurs. Respiratory: Clear to auscultation and symmetric bilaterally, poor effort. Abdomen: Normal bowel sounds, soft, non-tender, nondistended, no guarding. MSK: Extremities without clubbing, cyanosis, or edema. Neuro: Alert and oriented. Moves all 4 extremities, no focal neurologic deficits. Results Labs CBC & Chem 7: 03/18/18 05:53 03/18/18 05:53 Assessment and Plan Plan This is a 77-year coronary artery disease with previous heart attacks, no stenting or CABG done, atrial fibrillation, diabetes mellitus, dementia presenting with bradycardia. Second-degree AV block vs atrial fibrillation with SVR, ? Sick sinus rhythm- EKG atrial fibrillation with slow ventricular response versus second-degree AV block. Consult cardiology, will need EP studies and possibly pacemaker placement. Initial Troponin negative, check serial troponin and EKG, hold Xarelto in anticipation for surgery. s/p dual chamber PPM by Dr Cohen 03/18/18 Leukocytosis-could be from acute medical issues, no obvious source of infection , patient has a chronic cough, chest x-ray reviewed personally, unremarkable, check urinalysis. Recheck CBC tomorrow. Atrial fibrillation-as above Acute renal failure, likely from hypovolemia-creatinine 1.34, baseline is normal , will give normal saline cautiously. Check BMP tomorrow Diabetes mellitus type 2-hemoglobin A1c to estimate control, check sliding scale insulin, hold metformin, resume long-acting insulin per home dose of 30 units daily Hypertension-continue Norvasc, statin. Dementia-continue donepezil and memantine. History of COPD-not in exacerbation, continue Breo with Ventolin nebulization if needed. DVT prophylaxis: On Xarelto (held for procedure) resume after the procedure
[2018-03-18] MEDS ORDERED: ceFAZolin 1 GM Premix Inj 2 GM/100 ML PIGGYBACK IV.SIG ONE (15:16)
[2018-03-18] MEDS ORDERED: Sodium Chlor 0.9% Inj 250 ML ONE (15:16)
--- NOTE | 2018-03-18 16:08 | ECG ---
Date Performed: 03/17/2018 Time Performed: 17:46:08 PTAGE: 77 years EKG: SINUS BRADYCARDIA WITH FIRST DEGREE AV BLOCK RIGHT BUNDLE BRANCH BLOCK MODERATE VOLTAGE CRI TERIA FOR LVH, CONSIDER NORMAL VARIANT INFERIOR MYOCARDIAL INFARCTION ABNORMAL ECG Compared to PREVIOUS TRACING , previous tracing shows variable heart block which appears to be Winkeb ach, but this is no longer present on this tracing. PREVIOUS TRACIN03/17/2018 11.38 DOCTOR: Max Del Angel Interpretating Date/Time 03/18/2018 16:07:55
--- NOTE | 2018-03-18 16:31 | MB ---
cc: Mey Cohen MD,Mey Reyes MD, MD DATE: 03/17/2018 REASON FOR CONSULTATION: AV block for possible pacing support. HISTORY OF PRESENT ILLNESS: Mr. Gao is a 77-year-old short gentleman with history of coronary artery disease, TIA, high blood pressure, hyperlipidemia, high blood pressure, previously seen by Dr. Sanchez, began with lightheadedness, nausea and loss of vision. He was brought to the emergency room. He was found in complete AV dissociation. The patient was evaluated by Dr. Dominique and I was consulted for evaluation and management. The chart was reviewed. The patient was evaluated. The patient was seen in the emergency room. ALLERGIES: None. SOCIAL HISTORY: Negative for smoking and drinking. FAMILY HISTORY: Noncontributory to his current medical condition. MEDICATIONS: 1. Xarelto 20 mg a day. 2. Metformin 500 mg twice a day. 3. Donepezil 10 mg a day. 4. Lipitor 20 mg a day. 5. Pentoxifylline. 6. Lantus. 7. Norvasc 2.5 mg a day. REVIEW OF SYSTEMS: No chest pain, no chest discomfort, some dizziness and shortness of breath. No fever. PHYSICAL EXAMINATION: GENERAL: Alert, fully oriented. VITAL SIGNS: Blood pressure on evaluation 157/92, pulse 55, respiratory rate 20. LUNGS: Ventilated. CARDIOVASCULAR: S1, S2, kind of irregular. ABDOMEN: Soft, obese. No mass or bruits. EXTREMITIES: No edema. LABORATORY DATA: Previous electrocardiogram showed complete AV dissociation; this one showed sinus jigar, right bundle branch block, intraventricular conduction delay, diffuse ST changes. LABORATORY DATA: Hemoglobin 12.9, white blood cell 13.7. INR 1.3. Potassium 3.8, creatinine 1.19. Troponin less than 0.02. ASSESSMENT AND RECOMMENDATIONS: Mr. Gao has symptomatic bradycardia and complete AV block. He has intraventricular conduction delay, right bundle branch block. Most likely, the gentleman has ____ disease. He is going to need a permanent pacemaker. The risks, the nature and the benefits of the procedure were clearly said to him, these include pneumothorax, cardiac perforation, stroke and even . He understood and agreed to proceed. The procedure will be performed during hospitalization. MD Adin Johnson , 03:48 PM , 03:57 PM
--- NOTE | 2018-03-18 16:34 | P.PCNCA ---
Dual PPM Implantation - Dual PPM Implantation Procedure Date: 03/18/18 Dual PPM Implantation: PROCEDURE: Dual chamber permanent pacemaker implantation. INDICATIONS FOR PROCEDURE: Tyler Gao is a 77-year-old gentleman with symptomatic bradycardia, AV block who was referred for pacer insertion. The risks, the nature, and the benefit of the procedure were clearly stated to the patient. The risks include pneumothorax, cardiac perforation, stroke and even . The patient understood and agreed to proceed. PROCEDURE After written informed consent was obtained, the patient was transferred to the EP lab and was prepped and draped in the usual sterile fashion. Conscious sedation was initiated and maintained throughout the procedure by the anesthesiologist. Once sedation was verified, the left infraclavicular area was with 2% Xylocaine. Using modified Seldinger technique, the left subclavian vein was cannulated on two occasions and two guidewires were advanced. Then, using a #11 blade scalpel, a 2 cm was made two fingerbreadths below the left clavicle. This incision was then taken down through the deep fascial layer using Bovie cautery and blunt dissection. Into the inferomedial direction, device pocket was dissected, then the wire was dissected into the pocket. A 2- 0 Vicryl suture was placed around the wire to prevent backbleeding. At this point, over the lateral wire, an 7-[place] Islander dilator and introducer was advanced. As the dilator and wire were removed, an active fixation right ventricular pacing and sensing lead was advanced. After adequate pacing and sensing thresholds were obtained, the lead was secured in the pocket using 2-0 Ethibond suture. Then, over the remaining wire, an 7-[place] Islander dilator and introducer was advanced. As the dilator and wire were removed, an active fixation right atrial pacing and sensing lead was advanced. After adequate pacing and sensing thresholds were obtained, the lead was secured into the pocket using 2-0 Ethibond suture. At that point, the pocket was copiously irrigated using antibiotic solution. This was connected to the generator and placed into the pocket. I did proceed with wound closure. The deep fascial layer was approximated using 2-0 Vicryl suture in a continuous fashion. The subcutaneous layer was approximated with 2-0 Vicryl suture in a continuous fashion. The subcuticular layer was approximated with 2-0 Vicryl suture in a continuous fashion. Dermabond adhesive was applied to the wound followed by sterile pressure dressing. There was no complication. The patient tolerated procedure. Blood loss minimal. IMPLANTED HARDWARE The permanent pacemaker is a [employer]. Model #266567, serial number [id number]. The right atrial pacing and sensing lead is a [employer] model number 783626, serial number [id number]. The right ventricular pacing and sensing lead is a [employer] model number 323562 , serial number [id number]. THRESHOLDS The right atrial pacing threshold in the bipolar mode was 0.6V @ 0.4 milliseconds, lead impedance 430 ohms and P-wave at 5.6 millivolts. The right ventricular pacing threshold in the bipolar mode was .6 V @ 0.4 milliseconds, lead impedance 625 ohms and R-wave at the 10.5 millivolts. SETTINGS The device was set in the DDD60, upper limit 130 beats per minute. Hysteresis and mode switch are on. CONCLUSIONS: Successful permanent pacemaker implantation. COMMENT AND RECOMMENDATION The patient will be transferred to the telemetry unit and will be observed. When stable, the patient can be discharged home.
--- NOTE | 2018-03-18 16:37 | CATHPROC ---
[employer] HIS Report Study Information Study Number Admission Scheduled Start Study Start [id number] Mar 17 2018 2:06PM 03/18/2018 Mar 18 2018 2:39PM Datto Service Electrophysiology Study Admit Source Facility Department Other [facility] Lab Physician and Clinical Staff Initial Mey Hightower Drywall Hanger Renetta Welch RN Other Anesthesia, REPORT MANAGER Recorder Vero Wilkinson ,RT(R) Recorder Denise James,ENZO Scrub Ijeoma Collins,RT(R) Procedures Performed Procedure Lead Insertion Equipment Time Fisher Weir Description Size Mfg Part Number Used/Scraped 16:10 BIOTRONIK LEAD, SOLIA 60 PRO MRI * [id number] Used 16:12 BIOTRONIK LEAD, SOLIA 60 53 PRO MRI * [id number] Used 16:16 BIOTRONIK PACEMAKER, ELUNA 8 DR-T DDDR [id number] Used DERMABOND, ADHESIVE SKIN [id number] 15:11 CORDIS/PACER * Used GLUE MINI *[id number] 15:11 [employer]els BLANKET,WARM AIR CCL * Used *[id number] TP-1103 15:11 [employer] SUTURE, STRIP PLUS 1/2" * Used *[id number] 15:11 MEDLINE PACER JACOBSEN, LIMB * 2530 *[id number] Used [id number] 15:11 nap- Naturally Attached Parents PACER PACK, PACER CUSTOM * Used *[id number] 15:49 Tã Em Bé PACER SAFE SHEATH, FR7, 13CM FR 7 CLS-1007 Used 15:49 [employer] MEDICAL PACER SAFE SHEATH, FR7, 13CM FR 7 CLS-1007 Used 15:50 Needle Sponge Count 2 22 Used 15:52 Needle Sponge Count 30 1 Used 15:51 Needle Sponge Count 4 4 Used SUTURE, 0 ETHIBOND [CT1] (CX21D), 8pk SUTURE, 2-0 VICRYL [CT1] ([id number]) SUTURE, 2-0 VICRYL [CT1] ([id number]) DRESDEN STATES PAD, ELECTROSURGICAL 15:11 * [id number] *[id number] Used SURGICAL GROUNDING ORANGE [id number] 15:11 ZO[employer] LATESHA. / * Used *[id number] Equipment Model, Serial, Lot Number and Expiration Data Description Model Number Serial Number Lot Number Expiration Date LEAD, SOLIA 60 PRO MRI [id number] 10-28-2019 LEAD, SOLIA 60 53 PRO MRI [id number] 09-27-2019 PACEMAKER, ELUNA 8 ALEJANDRA [id number] 05-28-2019 History: Allergies Allergy Reaction No Known Allergies History: Risk Factors Hypertension Dyslipidemia Previous NC Yes Yes Yes Cerebrovascular Disease Labs Hgb (g/dl) Hct (%) RBC (MIL/MM3) WBC (l/cumm) Platelets (thousands) 11.60-17.00 35.00-51.00 4.00-5.90 4.00-11.00 150.00-450.00 12.0 36 3.9 9.3 185 Glucose (mg/dl) BUN (mg/dl) Creatinine (mg/dl) BUN:Creatinine (1:x) 74.00-106.00 7.00-18.00 0.50-1.30 10.00-20.00 129 22 1.2 18.3 Na (meq/l) K (meq/l) 136.00-145.00 3.50-5.10 142 3.8 INR (PTT:PT) 0.90-1.10 1.3 Medication Medication Total Dose (Bolus/Oral) Medication Total Dosage/Unit 2% XYLOCAINE 50 mL Medications (Bolus/Oral) Medication Time Given Dosage/Unit Administered By Reason 2% XYLOCAINE 03/18/2018 4:02:21 PM 50 mL Mey Cohen 50 mL 2% XYLOCAINE given in lab by Mey Cohen via Subcutaneous. Ordered by Mey Cohen. Medication (Drip) Medication Time Given Dosage/Unit Concentration/Unit Diluent (ml) Solution ANCEF 03/18/2018 3:20:20 PM 2 g 2 g ANCEF given in lab by PRADIP Lezama via Peripheral IV. Ordered by Mey Cohen. Reason: As pe r physicians verbal order. IV Solutions 03/18/2018 3:12:45 PM 50 mL (IV) NaCl .9 IV Solutions given in lab by Renetta Welch RN in Left Antecubital via Peripheral IV. Pump/Drip Fl ow using NaCl .9. Ordered by Mey Cohen. Reason: As per physicians verbal order. IV Solutions 03/18/2018 3:41:59 PM 0 mL (IV) NaCl .9 IV Solutions given in lab by Renetta Welch RN in Right Forearm via Peripheral IV. Pump/Drip Flow = 30 ml/hr using NaCl .9. Ordered by Mey Cohen. Reason: As per physicians verbal order. VANCOMYCIN DRIP 03/18/2018 3:30:29 PM 1 g 1 g VANCOMYCIN DRIP given in lab by Anesthesia, REPORT MANAGER via Peripheral IV. Ordered by Mey Cohen. Jeannette son: As per physicians verbal order. Initial Case Assessment Cardiovascular HR NIBP 62 207/86 Edema Present Skin color Skin None Normal Warm Dry Circulatory - Right Pulses Dorsalis Pedis 1 Scale (0,1,2,3,4,d) Circulatory - Left Pulses Dorsalis Pedis 1 Scale (0,1,2,3,4,d) Circulatory - Lower Extremities Color Lower Right Color Lower Left Normal Normal Neurological State Oriented to time-place- Alert Moves all extremities person Respiration - General Respiration Rate SpO2 (%) O2 (lpm) (B/min) 20 96 2 Chronological Log Time Study Chronological Log 15:09:38 Patient arrived via Bed. 15:09:39 Patient Name, D.O.B, / Armband Verified By R.N. 15:09:39 Consent signed by the physician and the patient and verified by the Building Trades Instructor staff. 15:09:40 Pre-op and post- op instructions given; patient acknowledges understanding of instructions. 15:09:41 Verbal Stimulation=2 Physical Stimulation=2 Airway=2 Respiration=2 TOTAL=8. (0=absent, 1=li mited, 2=present) 15:09:41 Anesthesia at bedside. Assumes care of patient. 15:09:43 Patient has been NPO for More than 6Hrs. 15:09:43 Skin Breakdown- none per pt 15:09:44 Patient Warmer Placed on the Table. 15:09:45 Disposable Defibrillator Pads Placed On Patient. 15:10:01 Renzo Prominences Protected 15:10:02 A # 20 IV was noted in the Antecubital (right). Grade = 0 15:10:03 A # 20 IV was noted in the Antecubital (left). Grade = 0 15:10:19 Bovie ground pad applied to: right thigh Assessment: Initial Case, HR=62 BPM, RRTZ=951/86 mmhg, Edema=None, Color=Normal, Skin = Warm, D ry Right Pulses: Blaine Ped=1 Left Pulses: Blaine Ped=1 15:10:24 Lower Right Extremities: Color=Normal Lower Left Extremities: Color=Normal Neurological: State=Alert, Ox3, GRACE Respiration: Resp=20 B/min, SpO2=96 %, O2=2 lpm 15:11:00 2% CHLORHEXIDINE GLUCONATE WASH AND NASAL SWIPE DONE PRIOR TO PROCEDURE. IV Solutions given in lab by Renetta Welch, ENZO in Left Antecubital via Peripheral IV. Pump/D rip Flow using NaCl .9. 15:12:45 Ordered by Mey Cohen. Reason: As per physicians verbal order. 15:12:54 Table restraints applied according to hospital policy 15:13:12 History and physical on the chart in EMR. 15:14:56 Chest hair clipped nipple line up Anesthesiologist present for LMA insertion. Dr. Dominguez 15:16:48 2 g ANCEF given in lab by Anesthesia, REPORT MANAGER via Peripheral IV. Ordered by Mey Cohen. Reason: As per physicians 15:20:20 verbal order. 1 g VANCOMYCIN DRIP given in lab by Anesthesia, REPORT MANAGER via Peripheral IV. Ordered by Brian Cohen Reason: As per 15:30:29 physicians verbal order. 15:41:56 IV Rt AC occluded and will not run fluids. Placed new #20G IV to RFA on 2nd attempt. MM IV Solutions given in lab by Renetta Welch RN in Right Forearm via Peripheral IV. Pump/Drip Flow = 30 ml/hr using 15:41:59 NaCl .9. Ordered by Mey Cohen. Reason: As per physicians verbal order. 15:42:53 Bilateral Upper Chest Prepped Times Two. MM First Sponge And Instrument Count Done by Ijeoma Collins, RT(R). 15:43:39 Hypo's: 4, Sponges: 30, Bovie/scratch: 2 Sutures: 10, Blades: 1, Instruments: 26, Syveck Patches: 0 verified by KR 15:52:33 Reference ECG taken 15:56:21 paged 15:58:28 MD responded 15:59:06 MD arrived. Time Out. Correct patient, procedure, procedure equipment, site and side verified with physicia n present. Time 16:01:59 concurred by MD, individual staff and REPORT MANAGER. 16:02:17 Case Start 16:02:21 50 mL 2% XYLOCAINE given in lab by Mey Cohen via Subcutaneous. Ordered by Mey Cohen . 16:03:47 Vascular access was obtained in the Subclav. Vein (Lft. 16:04:37 Vascular access was obtained in the Subclav. Vein (Lft. 16:05:00 Surgical Incision Made. 16:07:53 A SAFE SHEATH, FR7, 13CM FR 7 was advanced into the Subclav. Vein (Lft using the Modified S eldinger technique. 16:08:53 A LEAD, SOLIA 60 PRO MRI * was inserted and positioned in the RV. 16:10:14 Lead placement verified under fluoroscopy 16:10:18 The RV lead impedance and threshold being tested. 16:10:23 The RV lead was sutured to the fascia. 16:11:41 A SAFE SHEATH, FR7, 13CM FR 7 was advanced into the Subclav. Vein (Lft using the Modified S eldinger technique. 16:11:53 A LEAD, SOLIA 60 53 PRO MRI * was inserted and positioned in the RA. 16:12:23 Lead placement verified under fluoroscopy 16:12:40 The Atrial lead impedance and threshold is being tested. 16:12:42 The Atrial lead was sutured to the fascia. 16:15:50 A PACEMAKER, ELUNA 8 DR-T DDDR was connected and placed in the pocket. 16:16:38 Pocket flushed with antibiotic solution 16:21:17 The pocket was closed. Second Sponge And Instrument Count Done by Renetta Welch RN. 16:21:19 Hypo's: 4, Sponges: 30, Bovie/scratch: 2 Sutures: ~SUTURE~, Blades: 1, Instruments: ~INSTRU~, Syveck Patches: 0 16:22:01 Implant Procedure was performed. 16:22:15 A PPM Implant . (Dual) 16:22:33 Bedside Report will be given. 16:25:34 Case End (Physician broke scrub) 16:25:48 Steri-strips and a sterile dressing applied to site. The Final Sponge And Instrument Count Done by Mey Cohen. 16:25:51 Hypo's: 4, Sponges: 30, Bovie/scratch: 2 Sutures: 10, Blades: 1, Instruments: 26, Syveck Patches: 0 16:26:00 Sterile dressing applied to site 16:33:16 A sling was placed on the affected arm. End Study - Contrast Media Used In Study Contrast Total Opened (mL) Total Used (mL) Total Wasted (mL) Omnipaque 0 0 0 End Study - Maximum Contrast Load Max Contrast Load (mL) 353.4 End Study - Radiation Exposure Fluoro Time Fluoro Dose (mGy) Cine Dose (uGym2) (minutes) 1.3 9 143 End Study - Patient Disposition Complications Transferred To No Critical Care Bed
[2018-03-18] MEDS ORDERED: fentaNYL Citrate Inj 100 MCG/2 ML Ampul ONE ×2 (17:14)
[2018-03-18] MEDS ORDERED: *Ondansetron Inj 4 MG/2 ML Vial PERIprocedural Use ONLY ONE (17:24)
--- NOTE | 2018-03-18 18:19 | XR ---
EXAM DATE: 03/18/2018 6:16 PM EST AGE/SEX: 77 years / Male INDICATIONS: Post pacemaker placement. CLINICAL DATA: This is the patient's subsequent encounter. Patient reports that signs and symptoms h ave been present for 2 days and indicates a pain score of Nonresponsive. MEDICAL/SURGICAL HISTORY: Non-responsive. Non-responsive. COMPARISON: C, CHEST 1V SINGLE AP, 03/17/2018. . FINDINGS: A pacing implement is present with control pack over left upper chest. No evidence of pneumothorax or other comp location of placement. Lungs symmetrically aerated and grossly clear. No evidence of effu deepali. Cardiac contours are stable. CONCLUSION: Satisfactory appearance post pacemaker Electronically signed by: Constantino Lomeli MD Board Certified Radiologist 03/18/2018 6:18 PM EST
[2018-03-18] MEDS ORDERED: Morphine Inj 4 MG/ML Vial IV.PUSH ONE (20:59)
[2018-03-18] MEDS: ceFAZolin 2 GM Premix Inj 2 GM/50 ML PIGGYBACK IV.SIG SCH (22:34)
--- NOTE | 2018-03-18 23:21 | P.PNCA ---
Subjective Interval history: Doing well Continues to have episodes of high degree AV block Medications and Allergies Active Medications: Active Medications Acetaminophen (Tylenol) 650 mg PO Q4H PRN PRN Reason: Temp > 100.4 Hydrocodone Bitart/Acetaminophen ([place] 5/325) 1 tab PO Q4H PRN PRN Reason: PAIN SCALE 6 TO 8 Last Admin: 03/18/18 22:40 Dose: 1 tab Al Hydroxide/Mg Hydroxide (Milk Of [place] Liq) 30 ml PO Q12H PRN PRN Reason: Mild Constipation Albuterol (Duoneb Neb (Prn)) 1 ampul NEB Q4HR NEB PRN PRN Reason: sob Last Admin: 03/18/18 20:01 Dose: 1 ampul Amlodipine Besylate (Norvasc) 2.5 mg PO DAILY [facility] Last Admin: 03/18/18 08:19 Dose: 2.5 mg Atorvastatin Calcium (Lipitor) 20 mg PO HS [facility] Last Admin: 03/18/18 20:33 Dose: 20 mg Chlorhexidine Gluconate (Chlorhexidine 2% Cloth) 3 pack TOPICAL DAILY@0400 [facility] Stop: 03/23/18 03:59 Last Admin: 03/18/18 04:09 Dose: 3 pack Chlorhexidine Gluconate (Chlorhexidine 2% Cloth) 3 pack TOPICAL DAILY@0400 PRN PRN Reason: Extra cloth needed Stop: 03/23/18 03:59 Dextrose (D50w Vial) 50 ml IV.PUSH UNSCH PRN PRN Reason: PER HYPOGLYCEMIA PROTOCOL Donepezil HCl (Aricept) 10 mg PO DAILY [facility] Last Admin: 03/18/18 08:19 Dose: 10 mg Fluticasone/Vilanterol (Breo Ellipta 100/25 Mcg Inh) 1 puff INH DAILY [facility] Last Admin: 03/18/18 08:19 Dose: 1 puff Glucagon (Glucagon Inj) 1 mg OTHER UNSCH PRN PRN Reason: for Hypoglycemia Protocol Sodium Chloride (Ns Inj) 1,000 mls @ 84 mls/hr IV.CONT .[id number] [facility] Last Admin: 03/18/18 18:37 Dose: 84 mls/hr Cefazolin Sodium/Dextrose (Ancef 2 Gm Premix Inj) 2 gm in 50 mls @ 100 mls/hr IV.SIG Q8H [facility] Stop: 03/19/18 15:29 Last Admin: 03/18/18 22:34 Dose: 100 mls/hr Insulin Detemir (Levemir Inj) 30 unit SQ DAILY [facility] Last Admin: 03/18/18 08:20 Dose: 30 unit Insulin Human Regular (Novolin R Correctional Sugar Inj) 0 units SQ ACHS [facility]; Protocol Last Admin: 03/18/18 20:33 Dose: Not Given Lactulose (Lactulose Liq) 30 ml PO DAILY PRN PRN Reason: SEVERE CONSITIPATION Melatonin (Melatonin) 5 mg PO HS PRN PRN Reason: INSOMNIA Memantine (Namenda) 10 mg PO BID [facility] Last Admin: 03/18/18 20:33 Dose: 10 mg Miscellaneous Information ([facility] Nursing Information) 1 each OTHER UNSCH PRN PRN Reason: SEE LABEL COMMENTS Stop: 03/19/18 16:54 Ondansetron HCl (Zofran Inj) 4 mg IV.PUSH Q6H PRN PRN Reason: NAUSEA OR VOMITING Pentoxifylline (Trental Sr) 400 mg PO TID [facility] Last Admin: 03/17/18 17:20 Dose: Not Given Senna/Docusate Sodium (Esmer-Colace) 1 tab PO BID [facility] Last Admin: 03/18/18 20:34 Dose: 1 tab Sodium Chloride (Ns Flush) 2 ml IV.FLUSH BID [facility] Last Admin: 03/18/18 20:33 Dose: 2 ml Sodium Chloride (Ns Flush) 2 ml IV.FLUSH UNSCH PRN PRN Reason: FLUSH AFTER USING IV ACCESS Allergies Allergy/AdvReac Type Severity Reaction Status Date / Time No Known Allergies Allergy Verified 03/17/18 11:37 Home Medications Medication Instructions Recorded Confirmed Type amlodipine 2.5 mg PO DAILY 03/17/18 03/17/18 History atorvastatin 20 mg PO QPM 03/17/18 03/17/18 History donepezil 10 mg PO DAILY 03/17/18 03/17/18 History fluticasone-vilanterol [Breo 1 inh INHALATION DAILY 03/17/18 03/17/18 History Ellipta] insulin glargine [Lantus U-100 30 unit SUBCUT DAILY 03/17/18 03/17/18 History Insulin] memantine 10 mg PO BID 12/19/18 12/19/18 History metformin 500 mg PO BID 03/17/18 03/17/18 History pentoxifylline 400 mg PO TID 03/17/18 03/17/18 History rivaroxaban [Xarelto] 20 mg PO DAILY 03/17/18 03/17/18 History Physical Exam Vital signs: Vital Signs 03/17/18 23:22 03/18/18 01:03 03/18/18 02:08 Temperature Pulse Rate 54 L 55 L 65 Respiratory Rate 17 20 17 Blood Pressure 149/69 H 153/69 H Pulse Oximetry 94 L 95 94 L 03/18/18 03:41 03/18/18 04:00 03/18/18 06:00 Temperature 98.9 F Pulse Rate 95 H 58 L 53 L Respiratory Rate 25 H Blood Pressure 180/73 H Pulse Oximetry 95 03/18/18 08:00 03/18/18 10:00 03/18/18 12:00 Temperature 98.5 F 98.1 F Pulse Rate 59 L 59 L 61 Respiratory Rate 33 H 33 H Blood Pressure 155/57 H 157/67 H Pulse Oximetry 93 L 95 03/18/18 14:00 03/18/18 16:55 03/18/18 17:00 Temperature 97.7 F Pulse Rate 57 L 83 68 Respiratory Rate 14 18 Blood Pressure 178/87 H 180/81 H Pulse Oximetry 97 96 03/18/18 17:15 03/18/18 17:30 03/18/18 17:45 Temperature 97.6 F Pulse Rate 79 82 80 Respiratory Rate 17 17 18 Blood Pressure 171/74 H 167/84 H 163/71 H Pulse Oximetry 95 96 03/18/18 18:00 03/18/18 18:21 03/18/18 20:00 Temperature Pulse Rate 70 70 Respiratory Rate 30 H 30 H Blood Pressure 148/68 H 148/68 H Pulse Oximetry 96 96 95 03/18/18 20:01 Temperature Pulse Rate 78 Respiratory Rate 16 Blood Pressure Pulse Oximetry Intake & Output 03/18/18 03/18/18 03/19/18 06:59 18:59 06:59 Intake Total 1000 / 1000 1240 / 1240 Output Total 200 / 200 600 / 600 Balance 800 / 800 640 / 640 Weight 84.8 kg Intake: IV 1000 / 1000 1000 / 1000 NS Inj 1,000 ML @ 84 mls/hr IV. 1000 / 1000 1000 / 1000 CONT .[id number] [facility] Rx#:[id number] Oral 0 / 0 240 / 240 Output: Urine 200 / 200 600 / 600 Other: # Voids 1 Date of Last Bowel Movement 03/17/18 03/17/18 # Bowel Movements 0 0 Weight On Admission 84.8 kg Narrative: Gen appearance: Obese male. Cardiovascular: Borderline bradycardic, regular rhythm, no murmurs. Respiratory: Clear to auscultation and symmetric bilaterally, poor effort. Abdomen: Normal bowel sounds, soft, non-tender, nondistended, no guarding. MSK: Extremities without clubbing, cyanosis, or edema. Neuro: Alert and oriented. Moves all 4 extremities, no focal neurologic deficits. Results 03/18/18 05:53 03/18/18 05:53 Cardiac Enzymes 03/17/18 03/17/18 03/18/18 Range/Units 11:45 16:12 00:09 AST 17 (15-37) U/L Troponin I Less than 0.02 L Less than 0.02 L Less than 0.02 L (0.02-0.05) ng/mL Coagulation 03/17/18 Range/Units 11:45 PT 13.4 H (9.8-11.6) sec APTT 36.6 H (23.4-31.7) sec CBC 03/17/18 03/18/18 Range/Units 11:45 05:53 WBC 13.7 H 9.3 (4.0-11.0) th/mm3 RBC 4.04 L 3.89 L (4.50-5.90) mil/mm3 Hgb 12.9 L 12.4 L (13.0-17.0) gm/dL Hct 38.1 L 36.5 L (39.0-51.0) % Plt Count 198 185 (150-450) th/mm3 Neut # (Auto) 9.2 H 5.2 (1.8-7.7) th/mm3 Lymph # (Auto) 2.8 2.6 (1.0-4.8) th/mm3 [place] # (Auto) 1.1 H 0.9 (0.0-0.9) th/mm3 Eos # (Auto) 0.5 H 0.5 H (0.0-0.4) th/mm3 Baso # (Auto) 0.1 0.1 (0.0-0.2) th/mm3 Comprehensive Metabolic Panel 03/17/18 03/18/18 Range/Units 11:45 05:53 Sodium 141 142 (136-145) meq/L Potassium 4.2 3.8 (3.5-5.1) meq/L Chloride 108 H 109 H (98-107) meq/L Carbon Dioxide 27.4 27.7 (21.0-32.0) meq/L BUN 23 H 22 H (7-18) mg/dL Creatinine 1.34 H 1.19 (0.60-1.30) mg/dL Calcium 8.6 8.6 (8.5-10.1) mg/dL AST 17 (15-37) U/L ALT 24 (12-78) U/L Alkaline Phosphatase 94 (45-117) U/L Total Protein 6.9 (6.4-8.2) g/dL Albumin 3.1 L (3.4-5.0) g/dL Intake and Output 03/18/18 03/18/18 03/19/18 14:59 22:59 06:59 Intake Total 1240 / 1240 Output Total 600 / 600 Balance 640 / 640 Intake: IV 1000 / 1000 NS Inj 1,000 ML @ 84 mls/hr IV. 1000 / 1000 CONT .[id number] [facility] Rx#:[id number] Oral 240 / 240 Output: Urine 600 / 600 Other: Date of Last Bowel Movement 03/17/18 03/17/18 # Bowel Movements 0 - Imaging and Cardiology Imaging: Impressions Chest X-Ray 03/17/18 11:41 CONCLUSION: Negative examination. Chest X-Ray 03/18/18 00:00 CONCLUSION: Satisfactory appearance post pacemaker Assessment and Plan - Assessment (1) Dizziness Code(s): R42 - Dizziness and giddiness Status: Acute (2) AV heart block Code(s): I44.30 - Unspecified atrioventricular block Status: Acute - Plan 1) High degree AV block For PPM later today by Dr. Noel Aquino and Pentoxifylline on hold for procedure 2) Will see PRN Defer management to Dr. Cohen Follow up with Dr. Sanchez on discharge
[2018-03-19] MEDS: Chlorhexidine Gluconate 2% 1 Pack (2 Cloths) TOPICAL SCH (06:16)
[2018-03-19] MEDS: ceFAZolin 2 GM Premix Inj 2 GM/50 ML PIGGYBACK IV.SIG SCH (06:16)
[2018-03-19 06:54] LABS: Baso # (Auto) 0.1 th/mm3 (0.0-0.2); Baso % (Auto) 0.7 % (0.0-2.0); Eos # (Auto) 0.2 th/mm3 (0.0-0.4); Eos % (Auto) 1.6 % (0.0-4.0); Hematocrit 35.5 % (39.0-51.0); Hemoglobin 12.2 gm/dL (13.0-17.0); Lymph # (Auto) 2.2 th/mm3 (1.0-4.8); Lymph % (Auto) 20.3 % (9.0-44.0); Mean Corpuscular HGB Conc 34.3 % (32.0-36.0); Mean Corpuscular Hemoglobin 32.4 pg (27.0-34.0); Mean Corpuscular Volume 94.4 fL (80.0-100.0); Mean Platelet Volume 9.8 fL (7.0-11.0); Mono % (Auto) 8.8 % (0.0-8.0); Neut # (Auto) 7.5 th/mm3 (1.8-7.7); Neut % (Auto) 68.6 % (16.0-70.0); Platelet Count 168 th/mm3 (150-450); Red Blood Count 3.76 mil/mm3 (4.50-5.90); Red Cell Distribution Width 14.1 % (11.6-17.2)
[2018-03-19 07:15] LABS: Calcium 8.1 mg/dL (8.5-10.1); Carbon Dioxide 25.7 meq/L (21.0-32.0); Potassium 4.4 meq/L (3.5-5.1)
--- NOTE | 2018-03-19 07:51 | P.PNIM ---
Subjective Interval history: In nad. Says he feels much better. No pain at the surgical site. No lightheadedb=ness, no nause or diaphoresis. Cardiology cleared patient for DC and patient feels good and wants to go home. He will follow up as OP with cardiology and PCP Physical Exam Vital signs: Last Vital Signs Temp 98.7 F 03/19/18 02:00 Pulse 69 03/19/18 02:00 Resp 22 03/19/18 02:00 BP 145/63 H 03/19/18 02:00 Pulse Ox 97 03/19/18 02:00 Intake & Output 03/17/18 03/18/18 03/19/18 03/20/18 06:59 06:59 06:59 06:59 Intake Total 1000 / 1000 1340 / 1340 Output Total 200 / 200 600 / 600 Balance 800 / 800 740 / 740 Weight 84.8 kg Narrative: Gen appearance: Obese male. Cardiovascular: regular rhythm, no murmurs. PPM in place , dressing cdi. Respiratory: Clear to auscultation and symmetric bilaterally, poor effort. Abdomen: Normal bowel sounds, soft, non-tender, nondistended, no guarding. MSK: Extremities without clubbing, cyanosis, or edema. Neuro: Alert and oriented. Moves all 4 extremities, no focal neurologic deficits. Results Labs CBC & Chem 7: 03/19/18 06:30 03/19/18 06:30 Imaging Imaging: Impressions Chest X-Ray 03/18/18 00:00 CONCLUSION: Satisfactory appearance post pacemaker Assessment and Plan (1) Dizziness: Code(s): R42 - Dizziness and giddiness Status: Acute (2) AV heart block: Code(s): I44.30 - Unspecified atrioventricular block Status: Acute Plan This is a 77-year coronary artery disease with previous heart attacks, no stenting or CABG done, atrial fibrillation, diabetes mellitus, dementia presenting with bradycardia. Second-degree AV block vs atrial fibrillation with SVR, ? Sick sinus rhythm- EKG atrial fibrillation with slow ventricular response versus second-degree AV block. Consult cardiology, will need EP studies and possibly pacemaker placement. Initial Troponin negative, check serial troponin and EKG, hold Xarelto in anticipation for surgery. s/p dual chamber PPM by Dr Cohen 03/18/18 Leukocytosis-could be from acute medical issues, no obvious source of infection , patient has a chronic cough, chest x-ray reviewed personally, unremarkable, check urinalysis. Recheck CBC tomorrow. Atrial fibrillation-as above Acute renal failure, likely from hypovolemia-creatinine 1.34, baseline is normal , will give normal saline cautiously. Check BMP tomorrow Diabetes mellitus type 2-hemoglobin A1c to estimate control, check sliding scale insulin, hold metformin, resume long-acting insulin per home dose of 30 units daily Hypertension-continue Norvasc, statin. Dementia-continue donepezil and memantine. History of COPD-not in exacerbation, continue Breo with Ventolin nebulization if needed. DVT prophylaxis: On Xarelto (held for procedure) resumed after the procedure per cardio recs Patient imprpved , had PPM placed uneventful. DC home in stabele condition to follow up as OP with PCP and consultants.
[2018-03-19] MEDS: Insulin NovoLIN Regular Correctional Sugar Inj SQ SCH ×2 (08:25→11:35)
[2018-03-19] MEDS: amLODIPine 5 MG Tablet PO SCH (08:26)
[2018-03-19] MEDS: Insulin Detemir Inj 1,000 UNIT/10 ML Vial SQ SCH (08:27)
[2018-03-19] MEDS: Senna/Docusate Sodium 8.6/50 MG Tablet PO SCH (08:27)
--- NOTE | 2018-03-19 09:46 | ECG ---
Date Performed: 03/18/2018 Time Performed: 17:30:08 PTAGE: 77 years EKG: ATRIAL FIBRILLATION WITH ABERRANT CONDUCTION OR VENTRICULAR PREMATURE COMPLEXES MARKED RIGH T AXIS DEVIATION RIGHT BUNDLE BRANCH BLOCK POSSIBLE ANTERIOR MYOCARDIAL INFARCTION , OF INDETERMINATE AGE ABNORMAL ECG PREVIOUS TRACING : 03/17/2018 17.46 DOCTOR: Luis Maxwell Interpretating Date/Time 03/19/2018 09:44:26
--- NOTE | 2018-03-19 09:49 | P.PNCA ---
Subjective Interval history: Stable status post permanent pacemaker implantation. Medications and Allergies Active Medications: Active Medications Acetaminophen (Tylenol) 650 mg PO Q4H PRN PRN Reason: Temp > 100.4 Hydrocodone Bitart/Acetaminophen ([place] 5/325) 1 tab PO Q4H PRN PRN Reason: PAIN SCALE 6 TO 8 Last Admin: 03/19/18 06:16 Dose: 1 tab Al Hydroxide/Mg Hydroxide (Milk Of [place] Liq) 30 ml PO Q12H PRN PRN Reason: Mild Constipation Albuterol (Duoneb Neb (Prn)) 1 ampul NEB Q4HR NEB PRN PRN Reason: sob Last Admin: 03/18/18 20:01 Dose: 1 ampul Amlodipine Besylate (Norvasc) 2.5 mg PO DAILY [facility] Last Admin: 03/19/18 08:26 Dose: 2.5 mg Atorvastatin Calcium (Lipitor) 20 mg PO HS [facility] Last Admin: 03/18/18 20:33 Dose: 20 mg Chlorhexidine Gluconate (Chlorhexidine 2% Cloth) 3 pack TOPICAL DAILY@0400 [facility] Stop: 03/23/18 03:59 Last Admin: 03/19/18 06:16 Dose: 3 pack Chlorhexidine Gluconate (Chlorhexidine 2% Cloth) 3 pack TOPICAL DAILY@0400 PRN PRN Reason: Extra cloth needed Stop: 03/23/18 03:59 Dextrose (D50w Vial) 50 ml IV.PUSH UNSCH PRN PRN Reason: PER HYPOGLYCEMIA PROTOCOL Donepezil HCl (Aricept) 10 mg PO DAILY [facility] Last Admin: 03/19/18 08:26 Dose: 10 mg Fluticasone/Vilanterol (Breo Ellipta 100/25 Mcg Inh) 1 puff INH DAILY [facility] Last Admin: 03/19/18 08:27 Dose: 1 puff Glucagon (Glucagon Inj) 1 mg OTHER UNSCH PRN PRN Reason: for Hypoglycemia Protocol Sodium Chloride (Ns Inj) 1,000 mls @ 84 mls/hr IV.CONT .[id number] [facility] Last Infusion: 03/19/18 08:04 Dose: Infused Cefazolin Sodium/Dextrose (Ancef 2 Gm Premix Inj) 2 gm in 50 mls @ 100 mls/hr IV.SIG Q8H [facility] Stop: 03/19/18 15:29 Last Infusion: 03/19/18 08:37 Dose: Infused Insulin Detemir (Levemir Inj) 30 unit SQ DAILY [facility] Last Admin: 03/19/18 08:27 Dose: 30 unit Insulin Human Regular (Novolin R Correctional Sugar Inj) 0 units SQ ACHS [facility]; Protocol Last Admin: 03/19/18 08:25 Dose: Not Given Lactulose (Lactulose Liq) 30 ml PO DAILY PRN PRN Reason: SEVERE CONSITIPATION Melatonin (Melatonin) 5 mg PO HS PRN PRN Reason: INSOMNIA Memantine (Namenda) 10 mg PO BID [facility] Last Admin: 03/19/18 08:26 Dose: 10 mg Miscellaneous Information ([facility] Nursing Information) 1 each OTHER UNSCH PRN PRN Reason: SEE LABEL COMMENTS Stop: 03/19/18 16:54 Ondansetron HCl (Zofran Inj) 4 mg IV.PUSH Q6H PRN PRN Reason: NAUSEA OR VOMITING Pentoxifylline (Trental Sr) 400 mg PO TID [facility] Last Admin: 03/17/18 17:20 Dose: Not Given Senna/Docusate Sodium (Esmer-Colace) 1 tab PO BID [facility] Last Admin: 03/19/18 08:27 Dose: Not Given Sodium Chloride (Ns Flush) 2 ml IV.FLUSH BID [facility] Last Admin: 03/19/18 08:27 Dose: 2 ml Sodium Chloride (Ns Flush) 2 ml IV.FLUSH UNSCH PRN PRN Reason: FLUSH AFTER USING IV ACCESS Allergies Allergy/AdvReac Type Severity Reaction Status Date / Time No Known Allergies Allergy Verified 03/17/18 11:37 Home Medications Medication Instructions Recorded Confirmed Type amlodipine 2.5 mg PO DAILY 03/17/18 03/17/18 History atorvastatin 20 mg PO QPM 03/17/18 03/17/18 History donepezil 10 mg PO DAILY 03/17/18 03/17/18 History fluticasone-vilanterol [Breo 1 inh INHALATION DAILY 03/17/18 03/17/18 History Ellipta] insulin glargine [Lantus U-100 30 unit SUBCUT DAILY 03/17/18 03/17/18 History Insulin] memantine 10 mg PO BID 03/17/18 03/17/18 History metformin 500 mg PO BID 03/17/18 03/17/18 History pentoxifylline 400 mg PO TID 03/17/18 03/17/18 History rivaroxaban [Xarelto] 20 mg PO DAILY 03/17/18 03/17/18 History Physical Exam Vital signs: Vital Signs 03/18/18 10:00 03/18/18 10:01 03/18/18 11:00 Temperature Pulse Rate 59 L 57 L 61 Respiratory Rate 34 H 36 H 35 H Blood Pressure 172/72 H 171/74 H Pulse Oximetry 95 95 95 03/18/18 12:00 03/18/18 12:01 03/18/18 12:08 Temperature 98.1 F Pulse Rate 61 62 59 L Respiratory Rate 33 H 39 H 36 H Blood Pressure 157/67 H 157/67 H Pulse Oximetry 95 91 L 92 L 03/18/18 13:00 03/18/18 13:01 03/18/18 14:00 Temperature Pulse Rate 57 L 57 L 57 L Respiratory Rate 35 H 37 H 30 H Blood Pressure 136/60 150/74 H Pulse Oximetry 93 L 96 99 03/18/18 16:55 03/18/18 17:00 03/18/18 17:15 Temperature 97.7 F Pulse Rate 83 68 79 Respiratory Rate 14 18 17 Blood Pressure 178/87 H 180/81 H 171/74 H Pulse Oximetry 97 96 95 03/18/18 17:30 03/18/18 17:45 03/18/18 17:46 Temperature 97.6 F Pulse Rate 82 80 Respiratory Rate 17 18 Blood Pressure 167/84 H 163/71 H Pulse Oximetry 96 96 03/18/18 17:54 03/18/18 18:00 03/18/18 18:21 Temperature Pulse Rate 68 70 70 Respiratory Rate 30 H 30 H 30 H Blood Pressure 166/73 H 148/68 H 148/68 H Pulse Oximetry 96 96 96 03/18/18 19:00 03/18/18 19:01 03/18/18 20:00 Temperature Pulse Rate 80 80 77 Respiratory Rate 26 H 30 H 32 H Blood Pressure 164/69 H 150/70 H Pulse Oximetry 96 96 95 03/18/18 20:01 03/18/18 21:00 03/18/18 22:00 Temperature Pulse Rate 78 84 85 Respiratory Rate 16 39 H 15 Blood Pressure 146/66 H 138/68 Pulse Oximetry 96 92 L 03/18/18 23:00 03/19/18 00:00 03/19/18 01:00 Temperature 98.7 F Pulse Rate 83 77 76 Respiratory Rate 25 H 31 H 31 H Blood Pressure 133/63 134/63 153/71 H Pulse Oximetry 96 97 96 03/19/18 02:00 03/19/18 04:00 03/19/18 06:00 Temperature 98.7 F 97.4 F L Pulse Rate 69 60 60 Respiratory Rate 22 20 Blood Pressure 145/63 H Pulse Oximetry 97 03/19/18 08:00 03/19/18 08:17 Temperature 98.4 F Pulse Rate 60 Respiratory Rate 24 Blood Pressure 142/60 H Pulse Oximetry 96 95 Intake & Output 03/18/18 03/19/18 03/19/18 18:59 06:59 18:59 Intake Total 1240 / 1240 340 / 340 1050 / 1050 Output Total 600 / 600 450 / 450 Balance 640 / 640 -110 / -110 1050 / 1050 Weight 191 lb 5.78 oz Intake: IV 1000 / 1000 100 / 100 1050 / 1050 NS Inj 1,000 ML @ 84 mls/hr IV. 1000 / 1000 1000 / 1000 CONT .[id number] [facility] Rx#:[id number] Ancef 2 GM Premix Inj 2 gm In 100 / 100 50 / 50 50 ml @ 100 mls/hr IV.SIG Q8H [facility] Rx#:[id number] Oral 240 / 240 240 / 240 Output: Urine 600 / 600 450 / 450 Other: # Voids 2 # Incontinent Voids 1 Date of Last Bowel Movement 03/17/18 03/19/18 03/19/18 # Bowel Movements 0 1 Narrative: GENERAL: Well-developed, well-nourished, NAD. SKIN: Warm and dry. Chest wall incision well approximated without erythema or drainage. HEAD: Normocephalic. EYES: No scleral icterus. No injection or drainage. NECK: Supple, trachea midline. No JVD or lymphadenopathy. CARDIOVASCULAR: Regular rate and rhythm without murmurs, gallops, or rubs. RESPIRATORY: Breath sounds equal bilaterally. No accessory muscle use. GASTROINTESTINAL: Abdomen soft, non-tender, nondistended. MUSCULOSKELETAL: No cyanosis, or edema. BACK: Nontender without obvious deformity. No CVA tenderness. Results 03/19/18 06:30 03/19/18 06:30 Cardiac Enzymes 03/17/18 03/17/18 03/18/18 Range/Units 11:45 16:12 00:09 AST 17 (15-37) U/L Troponin I Less than 0.02 L Less than 0.02 L Less than 0.02 L (0.02-0.05) ng/mL Coagulation 03/17/18 Range/Units 11:45 PT 13.4 H (9.8-11.6) sec APTT 36.6 H (23.4-31.7) sec CBC 03/17/18 03/18/18 03/19/18 Range/Units 11:45 05:53 06:30 WBC 13.7 H 9.3 11.0 (4.0-11.0) th/mm3 RBC 4.04 L 3.89 L 3.76 L (4.50-5.90) mil/mm3 Hgb 12.9 L 12.4 L 12.2 L (13.0-17.0) gm/dL Hct 38.1 L 36.5 L 35.5 L (39.0-51.0) % Plt Count 198 185 168 (150-450) th/mm3 Neut # (Auto) 9.2 H 5.2 7.5 (1.8-7.7) th/mm3 Lymph # (Auto) 2.8 2.6 2.2 (1.0-4.8) th/mm3 [place] # (Auto) 1.1 H 0.9 1.0 H (0.0-0.9) th/mm3 Eos # (Auto) 0.5 H 0.5 H 0.2 (0.0-0.4) th/mm3 Baso # (Auto) 0.1 0.1 0.1 (0.0-0.2) th/mm3 Comprehensive Metabolic Panel 03/17/18 03/18/18 03/19/18 Range/Units 11:45 05:53 06:30 Sodium 141 142 140 (136-145) meq/L Potassium 4.2 3.8 4.4 (3.5-5.1) meq/L Chloride 108 H 109 H 106 (98-107) meq/L Carbon Dioxide 27.4 27.7 25.7 (21.0-32.0) meq/L BUN 23 H 22 H 14 (7-18) mg/dL Creatinine 1.34 H 1.19 1.00 (0.60-1.30) mg/dL Calcium 8.6 8.6 8.1 L (8.5-10.1) mg/dL AST 17 (15-37) U/L ALT 24 (12-78) U/L Alkaline Phosphatase 94 (45-117) U/L Total Protein 6.9 (6.4-8.2) g/dL Albumin 3.1 L (3.4-5.0) g/dL Intake and Output 03/18/18 03/19/18 03/19/18 22:59 06:59 14:59 Intake Total 1240 / 1240 340 / 340 1050 / 1050 Output Total 600 / 600 450 / 450 Balance 640 / 640 -110 / -110 1050 / 1050 Intake: IV 1000 / 1000 100 / 100 1050 / 1050 NS Inj 1,000 ML @ 84 mls/hr IV. 1000 / 1000 1000 / 1000 CONT .[id number] [facility] Rx#:[id number] Ancef 2 GM Premix Inj 2 gm In 100 / 100 50 / 50 50 ml @ 100 mls/hr IV.SIG Q8H [facility] Rx#:[id number] Oral 240 / 240 240 / 240 Output: Urine 600 / 600 450 / 450 Other: # Voids 2 # Incontinent Voids 1 Date of Last Bowel Movement 03/17/18 03/19/18 03/19/18 # Bowel Movements 0 1 Weight 191 lb 5.78 oz - Imaging and Cardiology Imaging: Impressions Chest X-Ray 03/17/18 11:41 CONCLUSION: Negative examination. Chest X-Ray 03/18/18 00:00 CONCLUSION: Satisfactory appearance post pacemaker Assessment and Plan - Assessment (1) AV heart block Code(s): I44.30 - Unspecified atrioventricular block Status: Acute Plan: Stable from EP standpoint. Keflex 500 mg 3 times daily times 3 days to start 8 hours after last dose of Ancef. Follow-up with Dr. Cohen in 2 weeks per my discussion with him. - Plan 1) High degree AV block For PPM later today by Dr. Cohen Xarelto and Pentoxifylline on hold for procedure 2) Will see PRN Defer management to Dr. Cohen Follow up with Dr. Sanchez on discharge
--- NOTE | 2018-03-19 10:50 | P.DS ---
DS: Providers Date of admission: 03/17/18 14:06 Primary care physician: Chalo Baird MD Consults: 03/17/18 18:48 Consult to Cardiology Routine Consulting Provider: Mey Cohen Does the patient have a Facility Maintenance Technician who follows them?: Yes Preferred Veneer Drier Feeder:: Mey Cohen Reason for Consultation: High degree AV block Notified:: Service Spoke with:: Gael Date Notified:: 03/17/18 Time Notified:: 18:58 Ordering Provider: EMILY 03/18/18 10:23 HUB Only Consult Order Routine Consulting Provider: Michael Rodriguez Brief History from admission: This is a 77-year-old male with history of stroke, atrial fibrillation on anticoagulation, dementia, hypertension diabetes mellitus presenting with bradycardia. 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 Patient allegedly complained of chest pain, sharp, nonradiating, mostly in the epigastric area, about 4/10, associated with dizziness, lightheadedness and nausea which lasted for 30 minutes and then resolved by itself. Presently, patient is chest pain-free. Patient currently smokes 1 pack a day. DS: Diagnosis Discharge Diagnosis (1) AV heart block: Status: Acute DS: Summary This is a 77-year coronary artery disease with previous heart attacks, no stenting or CABG done, atrial fibrillation, diabetes mellitus, dementia presenting with bradycardia. Cradiology consulted , patient had PPM placed . DC home in stable condition to follow up as OP with PCP and cosnultants Second-degree AV block vs atrial fibrillation with SVR, ? Sick sinus rhythm- EKG atrial fibrillation with slow ventricular response versus second-degree AV block. Consult cardiology, will need EP studies and possibly pacemaker placement. Initial Troponin negative, check serial troponin and EKG, hold Xarelto in anticipation for surgery. s/p dual chamber PPM by Dr Cohen 03/18/18 Leukocytosis-could be from acute medical issues, no obvious source of infection , patient has a chronic cough, chest x-ray reviewed personally, unremarkable, check urinalysis. Recheck CBC tomorrow. Atrial fibrillation-as above Acute renal failure, likely from hypovolemia-creatinine 1.34, baseline is normal , will give normal saline cautiously. Check BMP tomorrow Diabetes mellitus type 2-hemoglobin A1c to estimate control, check sliding scale insulin, hold metformin, resume long-acting insulin per home dose of 30 units daily Hypertension-continue Norvasc, statin. Dementia-continue donepezil and memantine. History of COPD-not in exacerbation, continue Breo with Ventolin nebulization if needed. DVT prophylaxis: On Xarelto (held for procedure) resumed after the procedure per cardio recs Patient improved, had PPM placed uneventful. DC home in stabele condition to follow up as OP with PCP and consultants. Time Spent with Patient Total time spent providing and/or coordinating discharge services: > 30 min Exam Narrative Exam Narrative: Gen appearance: Obese male. Cardiovascular: regular rhythm, no murmurs. PPM in place , dressing cdi. Respiratory: Clear to auscultation and symmetric bilaterally, poor effort. Abdomen: Normal bowel sounds, soft, non-tender, nondistended, no guarding. MSK: Extremities without clubbing, cyanosis, or edema. Neuro: Alert and oriented. Moves all 4 extremities, no focal neurologic deficits. Results Labs on day of discharge: Labs from last 24 hours 03/19/18 03/19/18 03/19/18 08:25 06:30 06:30 WBC 11.0 RBC 3.76 L Hgb 12.2 L Hct 35.5 L MCV 94.4 MCH 32.4 MCHC 34.3 RDW 14.1 Plt Count 168 MPV 9.8 Neut % (Auto) 68.6 Lymph % (Auto) 20.3 [place] % (Auto) 8.8 H Eos % (Auto) 1.6 Baso % (Auto) 0.7 Neut # (Auto) 7.5 Lymph # (Auto) 2.2 [place] # (Auto) 1.0 H Eos # (Auto) 0.2 Baso # (Auto) 0.1 WBC Differential . Differential Comment Auto diff final Sodium 140 Potassium 4.4 Chloride 106 Carbon Dioxide 25.7 Anion Gap 8 BUN 14 Creatinine 1.00 Estimated GFR 73 L POC Glucose 132 H Random Glucose 141 H Calcium 8.1 L 03/18/18 03/18/18 03/18/18 20:29 16:58 12:48 WBC RBC Hgb Hct MCV MCH MCHC RDW Plt Count MPV Neut % (Auto) Lymph % (Auto) [place] % (Auto) Eos % (Auto) Baso % (Auto) Neut # (Auto) Lymph # (Auto) [place] # (Auto) Eos # (Auto) Baso # (Auto) WBC Differential Differential Comment Sodium Potassium Chloride Carbon Dioxide Anion Gap BUN Creatinine Estimated GFR POC Glucose 143 H 87 88 Random Glucose Calcium Impressions ITS Impressions Chest X-Ray 03/18/18 00:00 CONCLUSION: Satisfactory appearance post pacemaker Discharge Plan Discharge Disposition Patient Disposition: W/Home Health Service Discharge Order Discharge Orders: Discharge Order (Routine); Ordered 03/19/18 Ordered By: Mila Tom Discharge Details Anticipated Discharge Date: 03/19/18 Physicians Team Primary Care Provider: Chalo Baird Attending Provider: Mila Tom Other Providers: Mey Cohen ; Michael Rodriguez Rxs /Orders / Referrals /Forms Prescriptions: Continue rivaroxaban [Xarelto] 2.5 mg Tablet 20 mg PO DAILY RF: 0 metformin 500 mg Tablet 500 mg PO BID RF: 0 atorvastatin 20 mg Tablet 20 mg PO QPM RF: 0 insulin glargine [Lantus U-100 Insulin] 100 unit/mL Solution 30 unit SUBCUT DAILY RF: 0 donepezil 10 mg Tablet 10 mg PO DAILY RF: 0 amlodipine 2.5 mg Tablet 2.5 mg PO DAILY RF: 0 pentoxifylline 400 mg Tablet Extended Release 400 mg PO TID RF: 0 memantine 10 mg Tablet 10 mg PO BID RF: 0 fluticasone-vilanterol [Breo Ellipta] 100-25 mcg/dose Blister With Device 1 inh INHALATION DAILY RF: 0 No Action tramadol 50 mg tablet 50 mg PO Q4-6H PRN (Reason: Acute pain) Qty: 12 RF: 0 Ambulatory Orders / Order Sets / DME: Oxygen Tank (2-5 liter) (Routine) Location: Determined by Patient Ordered By: Mila Tom Referrals: Mey Cohen MD [Physician] - See Instructions ( Please call the physician' s office to book the appointment to be seen within [1-2 weeks ].) Chalo Baird MD [Primary Care Provider] - See Instructions ( Please call the physician's office to book the appointment to be seen within [ 2-3 days ].) Discharge Instructions Patient Printed Instructions: Chest Pain (ED), Pacemaker (DC) Status ED Status: Left Department Discharge Information Discharge Date/Time: 03/19/18 15:15
--- NOTE | 2018-03-19 11:10 | P.DCO ---
Diagnosis (1) AV heart block: Status: Acute Case Management Consult Case Management Consult-Home Health: Yes I have seen patient Tyler Gao on 03/19/18. My clinical findings support the need for the requested home health care services because: postsurgical weakness, s/p PPM placement, with multiple comorbidities including cOPD , patient with sob , requiring O2 supplement. I certify that my clinical findings support that this patient is homebound because: postsurgical weakness, s/p PPM placement, with multiple comorbidities including COPD , patient with sob , requiring O2 supplement
== END 2018-03-19 15:15 | disposition home health service (06) ==
LOC: NEPE 11:19 → NEDA 14:06 → HIMC 03-18 03:05
PROVIDERS: ADMIT Hospitalist; ATTEND Hospitalist
DX: F03.90 Unspecified dementia, unspecified severity, without behavioral disturbance, psychotic disturbance, mood disturbance, and anxiety; I25.2 Old myocardial infarction; I25.10 Atherosclerotic heart disease of native coronary artery without angina pectoris; Z68.29 Body mass index [BMI] 29.0-29.9, adult; E66.9 Obesity, unspecified; E11.9 Type 2 diabetes mellitus without complications; I44.2 Atrioventricular block, complete; I45.10 Unspecified right bundle-branch block; E78.5 Hyperlipidemia, unspecified; J44.9 Chronic obstructive pulmonary disease, unspecified; R00.1 Bradycardia, unspecified; I10 Essential (primary) hypertension; Z86.73 Personal history of transient ischemic attack (TIA), and cerebral infarction without residual deficits; Z79.4 Long term (current) use of insulin; D72.829 Elevated white blood cell count, unspecified; N17.9 Acute kidney failure, unspecified; F17.210 Nicotine dependence, cigarettes, uncomplicated; Z79.01 Long term (current) use of anticoagulants; I48.91 Unspecified atrial fibrillation